=== PATIENT | male | born 1965 | race Caucasian/White ===

== ENCOUNTER 2018-08-25 08:07 | Outpatient (CLI) | payer BC, SELFPAY ==
[2018-08-25 09:07] LABS: Hemoglobin A1C 5.2 % (4.5-6.2)
[2018-08-25 09:51] LABS: Anion Gap 7.3 mmol/L (3-11); BUN 9 mg/dL (7-18); CO2 27.7 mmol/L (21.0-32.0); CREATININE 0.73 mg/dL (0.70-1.30); Calcium 8.5 mg/dL (8.5-10.1); Chloride 106 mmol/L (98-107); Cholesterol 144 mg/dL (50-200); Glucose 89 mg/dL (70-100); HDL Cholesterol 44 mg/dL (40-60); LDL CHOLESTEROL 86 mg/dL (<100); Potassium 4.2 mmol/L (3.5-5.1); Sodium 141 mmol/L (136-145); Triglyceride 101 mg/dL (30-150)
== END 2018-08-25 08:27 ==
PROVIDERS: PCP Nurse Practitioner Family; Visit Provider Nurse Practitioner Family
DX: E78.5 Hyperlipidemia, unspecified (principal); E88.81 Metabolic syndrome and other insulin resistance; Z13.1 Encounter for screening for diabetes mellitus
CPT/HCPCS: 36415; 80048; 80061; 83721; 83036

== ENCOUNTER 2019-09-15 07:03 | Outpatient (CLI) | payer BC, SELFPAY ==
[2019-09-15 07:58] LABS: Hemoglobin A1C 5.8 % (4.5-6.2)
[2019-09-15 09:10] LABS: Anion Gap 9.2 mmol/L (3-11); BUN 9 mg/dL (7-18); CO2 28.8 mmol/L (21.0-32.0); CREATININE 0.84 mg/dL (0.70-1.30); Calcium 8.9 mg/dL (8.5-10.1); Calculated LDL 110 mg/dL; Chloride 103 mmol/L (98-107); Cholesterol 174 mg/dL (50-200); Glucose 100 mg/dL (70-100); HDL Cholesterol 40 mg/dL (40-60); Potassium 4.5 mmol/L (3.5-5.1); Sodium 141 mmol/L (136-145); Triglyceride 121 mg/dL (30-150)
== END 2019-09-15 07:23 ==
PROVIDERS: PCP Nurse Practitioner Family; Visit Provider Nurse Practitioner Family
DX: E78.5 Hyperlipidemia, unspecified (principal); R73.01 Impaired fasting glucose
CPT/HCPCS: 36415; 80048; 80061; 83036

== ENCOUNTER 2019-10-11 11:20 | Emergency (ER) | payer BC, SELFPAY ==
[2019-10-11 11:33] VITALS: BP 133/91; PULSE 92; RESP 18; TEMP 36.6; O2SAT 96
[2019-10-11] MEDS: Dexamethasone 4 MG TAB 10 MG PO (12:57)
[2019-10-11] MEDS: Inhaler, Assist Device 1 EACH MC (13:00)
--- NOTE | 2019-10-12 14:44 | ED.GENADUL_ITS ---
Discharge Plan Disposition Patient Disposition: HOME Condition: Good Discharge Details Chief Complaint: RespSymp Clinical Impression: Sinusitis, Acute bronchospasm Primary Care Provider: Maribel Carpenter ED Provider: Liliya Hernandez Home Meds and New Rx's Prescriptions: New amoxicillin-pot clavulanate [Augmentin] 875-125 mg tablet 1 tab PO BID Qty: 20 RF: 0 albuterol sulfate [Proventil HFA] 90 mcg/actuation HFA aerosol inhaler 2 puff IH Q6H PRN (Reason: shortness of breath) Qty: 8 RF: 0 No Action sildenafil (pulm.hypertension) 20 mg tablet 20 mg PO DAILY PRN (Reason: sexual activity) Qty: 14 RF: 3 benzonatate 100 mg capsule 100 mg PO TID PRN (Reason: cough) Qty: 30 RF: 0 atorvastatin [Lipitor] 40 mg tablet 40 mg PO HS Qty: 90 RF: 3 Shingrix (PF) 50 mcg/0.5 mL suspension for reconstitution 50 mcg IM .COMPLEX Qty: 1 RF: 1 buspirone 7.5 MG tablet 7.5 mg PO BID PRNQty: 180 RF: 3 sertraline 50 mg tablet 50 mg PO DAILY Qty: 90 RF: 3 benzonatate [Tessalon Perles] 100 mg Capsule 100 mg PO PRN PRNRF: 0 Discharge Instructions Instructions: Sinusitis (ED), Bronchospasm (ED) Additional Instructions: Take antibiotics as prescribed. Rest activities as tolerated. Use nasal saline rinses 3 times a day followed in the morning by Flonase as discussed. Drink plenty of fluids. Use inhaler as discussed. Follow-up with primary care doctor if not improving the next 3 to 5 days. Return for any worsening symptoms, alarming symptoms if needed sooner. Discharge Data Discharge Date/Time-TO BE ENTERED AT DEPARTURE: 10/11/19 12:59 Medical Decision Making 54-year-old patient with 9 days of illness who presents for concern of sinusitis. Patient reports history of sinus infection in the past and this seems similar. Patient does present with erythema overlying the sinuses and right-sided maxillary tenderness. Patient has no systemic ill symptoms at this time. Patient's breath sounds do sound full and normal. After evaluation and examination of the patient I do feel it is appropriate to treat for sinus infection at this time. Patient agrees with plan of care. Historically Augmentin has worked very well for his sinus infections. Inhaler also provided for bronchospastic described coughing fits. Patient agrees with plan of care. Recommended humidifier by the bedside. Conservative treatments discussed. Follow-up with PCP encouraged if lack of improvement in the next 3 to 5 days. The patient was stable and requested discharge. Prior to discharge, my usual and customary return precautions were reviewed with the patient - this included foll ow-up instructions and reasons to return to the Emergency Department if conditions worsens, does not improve as expected, or other new concerns arise. HPI General Date/Time Provider Initiated Documentation: 10/11/19 12:02 . HPI Narrative: This is a 54-year-old patient who presents for 9 days of illness. Patient reports nasal congestion, sinus pain and pressure. Patient reports ear fullness with mild muffled hearing. Originally sore throat which has since resolved. Patient reports a cough with minimal production. No associated difficulty breathing or shortness of breath or wheezing. Patient does report coughing fits, and mild bronchospasm lasting approximately 10 to 15 minutes intermittently. Patient denies chest or back pain. Patient does report history of sinus infections. Patient reports this feels the same as a developing sinus infection and he plans to travel tomorrow for the holiday and is requesting antibiotics at this time. No associated nausea, vomiting or diarrhea. He is eating without difficulty. No other concerning places type no vision trismus. Related Data Home Medications Medication Instructions Recorded Confirmed buspirone 7.5 mg PO BID PRN #180 tab-cap 01/24/18 10/11/19 sildenafil (pulm.hypertension) 20 20 mg PO DAILY PRN #14 tab-cap 09/01/18 10/11/19 mg tablet varicella-zoster gE-AS01B (PF) 50 50 mcg IM .COMPLEX #1 each 09/24/18 09/21/19 mcg/0.5 mL IM susp, kit sertraline 50 mg tablet 50 mg PO DAILY #90 tab-cap 02/25/19 10/11/19 atorvastatin 40 mg tablet 40 mg PO HS #90 tab-cap 10/07/19 10/11/19 benzonatate 100 mg capsule 100 mg PO TID PRN #30 tab-cap 10/07/19 10/11/19 albuterol sulfate [Proventil HFA] 2 puff IH Q6H PRN #8 gm 10/11/19 amoxicillin-pot clavulanate 1 tab PO BID #20 tab 10/11/19 [Augmentin] benzonatate [Tessalon Perles] 100 mg PO PRN PRN 10/11/19 10/11/19 Previous Rx's Medication Instructions Recorded sildenafil (pulm.hypertension) 20 20 mg PO DAILY PRN #14 tab-cap 09/01/18 mg tablet varicella-zoster gE-AS01B (PF) 50 50 mcg IM .COMPLEX #1 each 09/24/18 mcg/0.5 mL IM susp, kit sertraline 50 mg tablet 50 mg PO DAILY #90 tab-cap 02/25/19 atorvastatin 40 mg tablet 40 mg PO HS #90 tab-cap 10/07/19 benzonatate 100 mg capsule 100 mg PO TID PRN #30 tab-cap 10/07/19 albuterol sulfate [Proventil HFA] 2 puff IH Q6H PRN #8 gm 10/11/19 amoxicillin-pot clavulanate 1 tab PO BID #20 tab 10/11/19 [Augmentin] Allergies Allergy/AdvReac Type Severity Reaction Status Date / Time Sulfa (Sulfonamide AdvReac Severe Diarrhea Verified 10/11/19 11:37 Antibiotics) levofloxacin [From Levaquin] AdvReac Unknown Diarrhea Verified 10/11/19 11:37 General Stated Complaint: RespSymp CELSA: 3 Review of Systems All systems reviewed & are unremarkable except as noted in HPI and below Constitutional Constitutional: Denies chills, Denies fever(s), Reports headache(s) and Reports malaise ENT Ears, Nose, Mouth, and Throat: Denies dental pain, Reports headache(s), Reports nasal discharge, Reports post nasal drip, Reports sinus pain, Reports sinus pressure and Denies sore throat Cardiovascular Cardiovascular: Denies chest pain Respiratory Respiratory: Denies cough and Denies pain with cough Gastrointestinal Gastrointestinal: Denies abdominal pain, Denies diarrhea, Denies nausea and Denies vomiting Neurologic Neurologic: Reports headache(s) [facility], [facility] Medical History Anxiety with depression (Chronic) BMI 35.0-35.9,adult (Chronic) Erectile dysfunction (Chronic 03/04/17) Hyperlipidemia (Chronic) 10-year ASCVD risk = ~10% (already on high intensity statin therapy) IFG (impaired fasting glucose) (Chronic) Insomnia disorder (Chronic) Metabolic syndrome (Chronic) Tobacco use disorder (Chronic) Surgical History Arthroplasty of knee (~2012) L colonscopy (01/18/16) excisional bx rgt upper arm (12/28/05) lipoma Social History Smoking/Tobacco Use Status: Current every day Tobacco Type: cigarettes Smoking packs per day: 1.00 Smoking cigarettes per day: 20.0 Years smoked: 30 Smoking pack-years: 30.00 Alcohol Intake: current Alcohol Intake frequency: holidays/special occasions only Drug use: Never Substance use type: does not use Adopted: No Caregiver/Support person: No Foster care: No Number of Children: 3 Sexually active: Yes Current gender identity: male What type of physical activity do you participate in: walking Duration: 30-45 minutes/day Frequency: daily Seatbelt use: always Water heater temp set <120 deg: Yes Working smoke detector in home: Yes Fire extinguisher in home: Yes Carbon monox detector in home: Yes Firearms in home: No Do you feel safe at home: Yes Do you feel safe in your relationship?: Yes Exam Narrative Exam Narrative: CONST: Healthy appearing patient, in no acute distress. Well hydrated. Alert and alert. HENMT: Head nomocephalic, normal to inspection. Atraumatic. Hearing grossly normal. Patient has effusion to left TM. No associated bulging. Patient has erythema overlying the sinuses with right maxillary sinus pain with palpation. No significant left maxillary sinus pain. No frontal sinus pain. Mild pharyngeal erythema without exudates. Uvula midline and normal. EYES: General normal appearance. Alignment normal. Eyelids normal. Conjunctiva normal. NECK: Normal visual inspection. FROM. Trachea midline. No Midline tenderness. CHEST: Normal insepection of the chest. RESP: Normal respiratory effort. Speaking full sentences. No cough. No audible wheezing. No retractions. CARDIO: No JVD. Course Vital Signs Vital signs: Vital Signs Temperature 36.6 C 10/11/19 11:33 Pulse 92 H 10/11/19 11:33 Respiratory Rate 18 10/11/19 11:33 Blood Pressure 133/91 H 10/11/19 11:33 Pulse Oximetry 96 10/11/19 11:33 Temperature 36.6 C 10/11/19 11:33 Temperature Source Temporal Artery Scan 10/11/19 11:33 Pulse 92 H 10/11/19 11:33 Respiratory Rate 18 10/11/19 11:33 Respiratory Effort Non-Labored 10/11/19 11:44 Blood Pressure 133/91 H 10/11/19 11:33 Blood Pressure Position Sitting 10/11/19 11:33 Pulse Oximetry 96 10/11/19 11:33 Oxygen Delivery Method Room Air 10/11/19 11:33 Oxygen Flow Rate 0 10/11/19 11:33 Pain Level 0 10/11/19 11:33
== END 2019-10-11 12:59 | disposition home or self-care (01) ==
PROVIDERS: Emergency Provider Physician Assistant; PCP Nurse Practitioner Family
DX: J01.90 Acute sinusitis, unspecified (principal); J98.01 Acute bronchospasm
CPT/HCPCS: 99283; J8540

== ENCOUNTER 2020-09-19 03:31 | Outpatient (CLI) | payer BC, SELFPAY ==
[2020-09-19 08:49] LABS: ALT 33 U/L (16-63); AST 18 U/L (15-37); Albumin 3.6 g/dL (3.4-5.0); Alkaline Phosphatase 111 U/L (46-116); Anion Gap 8.6 mmol/L (3-11); BUN 9 mg/dL (7-18); Bilirubin, Total 0.3 mg/dL (0.2-1.0); CO2 23.4 mmol/L (21.0-32.0); CREATININE 0.73 mg/dL (0.70-1.30); Calcium 8.6 mg/dL (8.5-10.1); Calculated LDL 100 mg/dL (<100); Chloride 103 mmol/L (98-107); Cholesterol 168 mg/dL (<200); Glucose 126 mg/dL (74-106); HDL Cholesterol 37 mg/dL (40-60); Sodium 135 mmol/L (136-145); Total Protein 6.7 g/dL (6.4-8.2); Triglyceride 157 mg/dL (<150)
== END 2020-09-19 03:51 ==
PROVIDERS: PCP Nurse Practitioner Family; Visit Provider Nurse Practitioner Family
DX: R73.01 Impaired fasting glucose (principal); E78.5 Hyperlipidemia, unspecified; E88.81 Metabolic syndrome and other insulin resistance
CPT/HCPCS: 36415; 80053; 80061

== ENCOUNTER 2021-09-27 02:41 | Outpatient (CLI) | payer BC, SELFPAY ==
[2021-09-27 08:58] LABS: Hemoglobin A1C 5.6 % (<5.7)
[2021-09-27 09:54] LABS: BUN 8 mg/dL (7-18); CREATININE 0.8 mg/dL (0.70-1.30); Calcium 8.6 mg/dL (8.5-10.1); Glucose 94 mg/dL (74-106)
[2021-09-27 09:55] LABS: AST 18 U/L (15-37); Albumin 3.7 g/dL (3.4-5.0); Alkaline Phosphatase 118 U/L (46-116); Anion Gap 11.3 mmol/L (3-11); Bilirubin, Total 0.3 mg/dL (0.2-1.0); CO2 25.7 mmol/L (21.0-32.0); Calculated LDL 104 mg/dL (<100); Chloride 105 mmol/L (98-107); Cholesterol 185 mg/dL (<200); HDL Cholesterol 36 mg/dL (40-60); Potassium 4.3 mmol/L (3.5-5.1); Sodium 142 mmol/L (136-145); Total Protein 6.7 g/dL (6.4-8.2); Triglyceride 225 mg/dL (<150)
[2021-09-27 09:56] LABS: ALT 41 U/L (16-63)
== END 2021-09-27 02:42 | disposition home or self-care (01) ==
LOC: LBO 02:41
PROVIDERS: PCP Nurse Practitioner Family; Visit Provider Nurse Practitioner Family
DX: E78.5 Hyperlipidemia, unspecified (principal); R73.01 Impaired fasting glucose; E88.81 Metabolic syndrome and other insulin resistance
CPT/HCPCS: 36415; 80053; 80061; 83036

== ENCOUNTER 2022-06-30 14:13 | Outpatient (REF) | payer BC, SELFPAY ==
[2022-06-30 17:26] LABS: Abs Immature Grans 0.05 10^3/uL (0.0-0.06); Absolute Basophil Count 0.22 10^3/uL (0.0-0.2); Absolute Monocyte Count 1.53 10^3/uL (0.1-0.8); Basophils % 1.6; Eosinophils % 3.8; HCT 42.7 % (40.0-50.0); HGB 14.9 g/dL (13.5-17.5); Immature Grans % 0.4; Lymphocytes % 16.1; MCH 31.6 pg (27.0-33.0); MCHC 34.9 % (32.0-36.0); MCV 91 fL (80-95); MPV 9.5 fL (8.0-11.0); Monocytes % 11.3; Neutrophils % 66.8; RBC 4.72 10^6/uL (4.36-5.78); RDW 13.3 % (11.8-14.1); RDW-SD 45.1 fL; WBC 13.57 10^3/uL (4.4-10.8)
[2022-06-30 17:29] LABS: Absolute Eosinophil Count 0.52 10^3/uL (0.0-0.7); Absolute Lymphocyte Count 2.18 10^3/uL (1.2-3.4); Absolute Neutrophil Count 9.06 10^3/uL (1.2-6.7); ESR 18 mm/hr (0-20)
[2022-06-30 18:02] LABS: Diff Comment Agrees w/ Instrument; RBC Morphology Normal
[2022-06-30 18:03] LABS: Platelet Count 375 10^3/uL (130-400)
[2022-07-02 10:04] LABS: PSA, Diagnostic 0.4 ng/mL (<=3.5)
== END 2022-06-30 14:14 | disposition home or self-care (01) ==
LOC: LBN 14:13
PROVIDERS: PCP Nurse Practitioner Family; Visit Provider Nurse Practitioner Family
DX: R10.30 Lower abdominal pain, unspecified (principal); R35.0 Frequency of micturition
CPT/HCPCS: 85652; 84153; 85025; 87086

== ENCOUNTER 2022-07-04 15:54 | Outpatient (REF) | payer BC, SELFPAY ==
[2022-07-05 12:03] LABS: Bilirubin Negative (Negative); Blood Negative (Negative); Clarity Clear (Clear); Glucose Negative (Negative); Ketones Negative (Negative); Leukocyte Esterase Negative (Negative); Nitrite Negative (Negative); Specific Gravity <= 1.005 (1.005-1.025); Urobilinogen 0.2 EU/dL (Up TO 0.2); pH 5.5 (5-8)
== END 2022-07-04 15:55 | disposition home or self-care (01) ==
LOC: LBN 15:54
PROVIDERS: PCP Nurse Practitioner Family; Visit Provider Nurse Practitioner Adult Health
DX: R30.0 Dysuria (principal)
CPT/HCPCS: 81003; 87086

== ENCOUNTER 2022-07-05 03:48 | Outpatient (CLI) | payer BC, SELFPAY ==
[2022-07-05 10:15] LABS: Abs Immature Grans 0.03 10^3/uL (0.0-0.06); Absolute Basophil Count 0.23 10^3/uL (0.0-0.2); Absolute Eosinophil Count 0.48 10^3/uL (0.0-0.7); Basophils % 1.9; HCT 43.1 % (40.0-50.0); HGB 14.6 g/dL (13.5-17.5); Immature Grans % 0.3; Lymphocytes % 20.8; MCH 30.8 pg (27.0-33.0); MCHC 33.9 % (32.0-36.0); MCV 91 fL (80-95); MPV 8.7 fL (8.0-11.0); Monocytes % 8.7; Neutrophils % 64.3; Platelet Count 366 10^3/uL (130-400); RBC 4.74 10^6/uL (4.36-5.78); RDW 13.2 % (11.8-14.1); RDW-SD 44.8 fL
[2022-07-05 10:17] LABS: Absolute Lymphocyte Count 2.48 10^3/uL (1.2-3.4); Absolute Monocyte Count 1.04 10^3/uL (0.1-0.8); Absolute Neutrophil Count 7.65 10^3/uL (1.2-6.7)
[2022-07-05 10:46] LABS: ALT 26 U/L (16-63); AST 14 U/L (15-37); Albumin 3.4 g/dL (3.4-5.0); Alkaline Phosphatase 138 U/L (46-116); Anion Gap 10.5 mmol/L (3-11); BUN 11 mg/dL (7-18); Bilirubin, Total 0.3 mg/dL (0.2-1.0); CO2 24.5 mmol/L (21.0-32.0); CREATININE 0.8 mg/dL (0.70-1.30); Calcium 8.5 mg/dL (8.5-10.1); Chloride 103 mmol/L (98-107); Glucose 126 mg/dL (74-106); Sodium 138 mmol/L (136-145); Total Protein 7.3 g/dL (6.4-8.2)
== END 2022-07-05 03:49 | disposition home or self-care (01) ==
LOC: LBO 03:48
PROVIDERS: PCP Nurse Practitioner Family; Visit Provider Nurse Practitioner Adult Health
DX: D72.829 Elevated white blood cell count, unspecified (principal); R10.30 Lower abdominal pain, unspecified; R30.0 Dysuria
CPT/HCPCS: 36415; 80053; 85025

== ENCOUNTER 2022-07-29 13:10 | Inpatient (IN) | payer BC, SELFPAY ==
[2022-07-29 13:15] VITALS: BP 161/83; PULSE 91; RESP 22; TEMP 36.8; O2SAT 97
--- NOTE | 2022-07-29 13:15 | DI.CT_ITS ---
Exam(s) CT ABDOMEN PELVIS W EXAM: CT ABDOMEN PELVIS W CLINICAL HISTORY: lower abd pain. TECHNIQUE: Imaging Protocol: Axial computed tomography images with coronal and sagittal reformatted images were created and reviewed CONTRAST MATERIAL: Intravenous: Omnipaque 100cc Oral: None COMPARISON: No exams were available for comparison FINDINGS: VISUALIZED LUNG BASES: No nodules nor pleural effusions evident. ABDOMEN: There is no ascites. LIVER: There are no focal hepatic lesions evident. No evidence of a [place] abscess. GALLBLADDER/BILIARY: No obvious gallbladder pathology. CBD is not dilated. PANCREAS: No evidence of pancreatic mass nor dilatation of the pancreatic duct. SPLEEN: Spleen is not enlarged. No obvious intrasplenic lesions. Splenic and portal veins are paten t. ADRENALS: There are no significant adrenal masses. KIDNEYS:No cysts evident. No solid renal masses. No calculi nor hydronephrosis.. ABDOMINAL AORTA: Abdominal aorta is not enlarged. LYMPH NODES:There is no retroperitoneal nor paraaortic adenopathy. ABDOMINAL WALL: No evidence of significant anterior abdominal wall nor inguinal hernia. PELVIS: GI: No evidence of appendicitis.However, there is severe sigmoid diverticulitis and there is an adjac ent abscess measuring 6.0 x 5.0 x 4.5 cm, intimately related to the right culprit sigmoid area but al so intimately related to the superior aspect of the urinary bladder.No gas in the urinary bladder at this time but this abscess indents the superior wall of the bladder and patient is at risk for develo ping fistula. LYMPH NODES: There is no intrapelvic nor inguinal adenopathy. REPRODUCTIVE: Prostate not enlarged. Seminal vesicles unremarkable. URINARY BLADDER: As above. OSSEOUS: No significant osseous lesions. No fractures. IMPRESSION: 1. Severe acute sigmoid diverticulitis with large abscess formation measuring 6 x 5 x 4.5 cm, this ab scess indenting the superior aspect of the bladder. This patient is at high risk for developing a fi stula and aggressive antibiotic therapy is recommended. 2. Appendix appears unremarkable. 3. Other findings as above. RADIATION DOSE DELIVERED: 2,021.66mGy.cm Total DLP DATA REPOSITORY: All CT scans at this facility are submitted to the National Radiology Data Registry (NRDR) Dose Index Registry (DIR) with the [employer] ([employer]). RADIATION OPTIMIZATION: All CT scans at this facility use at least one of these dose optimization te chniques: automated exposure control; mA and/or kV adjustment per patient size (includes targeted exa ms where dose is matched to clinical indication); or iterative reconstruction.
--- NOTE | 2022-07-29 13:22 | ED.GENADUL_ITS ---
Discharge Plan Disposition Patient Disposition: [facility] INPATIENT Condition: Stable Discharge Details Chief Complaint: Abd Prob Clinical Impression: Diverticulitis of intestine with abscess Primary Care Provider: Maribel Carpenter ED Provider: Raymundo Moreno Home Meds and New Rx's Prescriptions: No Action sildenafil (pulm.hypertension) 20 mg tablet 20 mg PO DAILY PRN (Reason: sexual activity) Qty: 14 3RF Rx Instructions: Take 20 mg once daily as needed 1 hour before sexual activity albuterol sulfate 90 mcg/actuation HFA aerosol inhaler 1 - 2 puff inhalation Q4H PRN (Reason: shortness of breath or wheezing) Qty: 1 3RF Rx Instructions: Dispense brand of albuterol inhaler covered by patient's insurance tamsulosin [Flomax] 0.4 mg capsule 0.4 mg PO DAILY Qty: 30 2RF buspirone 7.5 mg tablet 7.5 mg PO BID PRN (Reason: anxiety) Qty: 180 0RF atorvastatin [Lipitor] 40 mg tablet 40 mg PO HS Qty: 90 3RF sertraline 50 mg tablet 50 mg PO DAILY Qty: 90 1RF Medical Decision Making 57-year-old gentleman presents to the ER for 2-month history of lower abdominal pain, occasional dysuria, has been seen at the urgent care and by his PCP, awaiting a CT for concern of diverticulitis at the end of the month but does not feel like waiting that long is safe. Clinically he appears well, nontoxic. Plan is to obtain IV access, routine screening laboratory values and a CT of his abdomen pelvis with IV contrast Laboratory values reveal mild nonspecific leukocytosis CT imaging reveals diverticulitis with abscess, no definitive fistula Case discussed with Dr. Mehta who recommends initiating IV Zosyn, will admit to her services and schedule likely a down and back to [facility] interventional radiology for drainage of the abscess. She will place admission order Findings discussed with patient who is agreeable to admission This documentation was generated using [employer] dictation system, please disregard any oddities of phrase or misspellings. Medical Records Medical records reviewed: Yes I reviewed the patient's medical records. Imaging Data Radiologic Study: Attestation: I personally reviewed and interpreted this imaging study as follows: Imaging: CT Scan Radiologist's impression: PROCEDURE INFORMATION: Exam: CT Abdomen And Pelvis With Contrast Exam date and time: 07/29/2022 2:08 PM Age: 57 years old Clinical indication: Lower abd pain TECHNIQUE: Imaging protocol: Computed tomography of the abdomen and pelvis with contrast. Radiation optimization: All CT scans at this facility use at least one of these dose optimization techniques: automated exposure control; mA and/or kV adjustment per patient size (includes targeted exams where dose is matched to clinical indication); or iterative reconstruction. Contrast material: OMNIPAQUE 350; Contrast volume: 99 ml; Contrast route: INTRAVENOUS (IV); COMPARISON: No relevant prior studies available. FINDINGS: Liver: Normal. No mass. Gallbladder and bile ducts: Normal. No calcified stones. No ductal dilation. Pancreas: Normal. No ductal dilation. Spleen: Normal. No splenomegaly. Adrenal glands: Normal. No mass. Kidneys and ureters: Normal. No hydronephrosis. Stomach and bowel: Colonic diverticulosis. There is a segment of wall thickening within the sigmoid colon, consistent in appearance with acute diverticulitis. Appendix: A normal appendix is identified. Intraperitoneal space: Unremarkable. No free air. No significant fluid collection. Vasculature: Unremarkable. No abdominal aortic aneurysm. Lymph nodes: Unremarkable. No enlarged lymph nodesUrinary bladder: There is an adjacent gas containing abscess measuring 5.5 x 5.1 x 4.0 cm it is also abutting the urinary bladder without definite evidence of fistulous connection. Reproductive: Unremarkable as visualized. Bones/joints: Unremarkable. No acute fracture. Soft tissues: Unremarkable. IMPRESSION: There is a segment of wall thickening within the sigmoid colon, consistent in appearance with acute diverticulitis. There is an adjacent gas containing abscess measuring 5.5 x 5.1 x 4.0 cm it is also abutting the urinary bladder without definite evidence of fistulous connection. Lab Data Lab results reviewed: Yes I reviewed the patient's lab results. Labs: Laboratory Tests Range/Units 07/29/22 07/29/22 07/29/22 13:30 13:30 13:33 WBC (4.4-10.8) 10^3/uL 13.63 H RBC (4.36-5.78) 10^6/uL 4.68 Hgb (13.5-17.5) g/dL 14.6 Hct (40.0-50.0) % 42.6 MCV (80-95) fL 91 MCH (27.0-33.0) pg 31.2 MCHC (32.0-36.0) % 34.3 RDW (11.8-14.1) % 13.3 Plt Count (130-400) 10^3/uL 417 H MPV (8.0-11.0) fL 8.8 Immature Gran % 0.4 Neutrophils % 68.7 Lymphocytes % 15.9 Monocytes % 9.3 Eosinophils % 4.1 Basophils % 1.6 Nucleated RBC % (0.0-0.3) % 0.0 Absolute Neutrophils (1.2-6.7) 10^3/uL 9.36 H Absolute Lymphocytes (1.2-3.4) 10^3/uL 2.17 Absolute Monocytes (0.1-0.8) 10^3/uL 1.27 H Absolute Eosinophils (0.0-0.7) 10^3/uL 0.56 Absolute Basophils (0.0-0.2) 10^3/uL 0.22 H Sodium (136-145) mmol/L 138 Potassium (3.5-5.1) mmol/L 3.8 Chloride (98-107) mmol/L 102 Carbon Dioxide (21.0-32.0) mmol/L 27.2 Anion Gap (3-11) mmol/L 8.8 BUN (7-18) mg/dL 10 Creatinine (0.70-1.30) mg/dL 0.8 Est GFR (CKD-EPI 2020) (mL/min/1.73m2) 102.58 Glucose (74-106) mg/dL 108 H Calcium (8.5-10.1) mg/dL 8.5 Total Bilirubin (0.2-1.0) mg/dL 0.3 AST (15-37) U/L 11 L ALT (16-63) U/L 23 Alkaline Phosphatase (46-116) U/L 129 H Total Protein (6.4-8.2) g/dL 7.7 Albumin (3.4-5.0) g/dL 3.4 Lipase (73-393) U/L 84 Urine Color (Yellow) Yellow Urine Clarity (Clear) Clear Urine pH (5-8) 6.0 Ur Specific [place] (1.005-1.025) 1.010 Urine Protein (Negative) mg/dL Negative Urine Ketones (Negative) mg/dL Negative Urine Blood (Negative) Negative Urine Nitrite (Negative) Negative Urine Bilirubin (Negative) Negative Urine Urobilinogen (Up TO 0.2) EU/dL 0.2 Ur Leukocyte Esterase (Negative) Negative Urine Glucose (Negative) mg/dL Negative HPI General Mode of arrival: ambulatory . Date/Time Provider Initiated Documentation: 07/29/22 13:11 . Limitations to Documentation: no limitations . Information obtained by: patient . History of Present Illness 57 year old M presents to the emergency department with the chief complaint of abd pain, described as moderate, with intensity rated at 6. Quality is described as aching, and is localized to the abdomen. Patient reports no radiation. Patient started experiencing this month(s) (2) and it has been intermittent. No relieving factors improve symptom(s), No exacerbating factors reported . Patient notes denies fever/chills and nausea/vomiting. Patient did receive the following treatments prior to arrival, none Related Data Home Medications Medication Instructions Recorded Confirmed sildenafil (pulm.hypertension) 20 20 mg PO DAILY PRN sexual activity 09/01/18 07/29/22 mg tablet #14 tab-caps buspirone 7.5 mg tablet 7.5 mg PO BID PRN anxiety #180 02/17/20 07/29/22 tab-caps albuterol sulfate 90 mcg/actuation 1 - 2 puff inhalation Q4H PRN 09/28/20 0 07/29/22 aerosol inhaler shortness of breath or wheezing #1 unit atorvastatin 40 mg tablet (Lipitor) 40 mg PO HS #90 tab-caps 09/27/21 07/29/22 sertraline 50 mg tablet 50 mg PO DAILY #90 tab-caps 05/22/22 07/29/22 tamsulosin 0.4 mg capsule (Flomax) 0.4 mg PO DAILY #30 caps 07/16/22 07/29/22 Previous Rx's Medication Instructions Recorded sildenafil (pulm.hypertension) 20 20 mg PO DAILY PRN sexual activity 09/01/18 mg tablet #14 tab-caps buspirone 7.5 mg tablet 7.5 mg PO BID PRN anxiety #180 02/17/20 tab-caps albuterol sulfate 90 mcg/actuation 1 - 2 puff inhalation Q4H PRN 09/28/20 aerosol inhaler shortness of breath or wheezing #1 unit atorvastatin 40 mg tablet (Lipitor) 40 mg PO HS #90 tab-caps 09/27/21 sertraline 50 mg tablet 50 mg PO DAILY #90 tab-caps 05/22/22 tamsulosin 0.4 mg capsule (Flomax) 0.4 mg PO DAILY #30 caps 07/16/22 Allergies Allergy/AdvReac Type Severity Reaction Status Date / Time Sulfa (Sulfonamide AdvReac Severe Diarrhea Verified 07/29/22 13:23 Antibiotics) levofloxacin [From Levaquin] AdvReac Unknown Diarrhea Verified 07/29/22 13:23 General Stated Complaint: Abd Prob CELSA: 3 Review of Systems Constitutional Constitutional: Denies fever(s) and Denies weakness Cardiovascular Cardiovascular: Denies chest pain and Denies dyspnea Respiratory Respiratory: Denies cough and Denies dyspnea Gastrointestinal Gastrointestinal: Reports abdominal pain, Denies constipation, Reports diarrhea, Denies nausea and Denies vomiting Genitourinary Genitourinary: Denies hematuria, Reports dysuria (Occasionally) and Denies penile discharge Musculoskeletal Musculoskeletal: Denies back pain Integumentary/Breasts Skin/Breast: Denies rash Neurologic Neurologic: Denies weakness PFSH All Active Problems (Updated 07/29/22 @ 15:15 by YASMANI Mendieta) Diverticulitis of intestine with abscess (Acute) Obesity (Chronic) IFG (impaired fasting glucose) (Chronic) Anxiety with depression (Chronic) Tobacco use disorder (Chronic) Metabolic syndrome (Chronic) Insomnia disorder (Chronic) Hyperlipidemia (Chronic) 09/2020 labs: adequate response, continue statin Erectile dysfunction (Chronic 03/04/17) Surgical History Arthroplasty of knee (~2012) L excisional bx rgt upper arm (12/28/05) lipoma Family History Father Essential hypertension Anxiety Hyperlipidemia Maternal Aunt Neoplasm metastatic esophageal CA Mother Hyperlipidemia Stroke Sister Goiter S/p bx (benign) Breast cancer Social History Smoking/Tobacco Use Status: Current every day Tobacco Type: cigarettes Smoking packs per day: 1.00 Smoking cigarettes per day: 20.0 Years smoked: 30 Smoking pack-years: 30.00 Quit status: considering quitting Smoking risk assessment performed?: Yes Alcohol Intake: current Alcohol Intake frequency: holidays/special occasions only Drug use: Never Substance use type: does not use Adopted: No Caregiver/Support person: No Foster care: No Household members: family Housing: house Number of Children: 1 Communication Needs: Corrective Lenses Education Level: college Do you need help understanding health information?: Rarely 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 Pets and animals: Yes Pets and animals: dog(s) Sexually active: Yes Do you think of yourself as: straight/heterosexual Current gender identity: male What is your relationship status?: How often do you talk on the phone with friends or family?: twice per week How often do you get together with friends or relatives?: twice per week How often do you attend hindu or scientology services?: 1-3 times per year Do you belong to any clubs or organized social groups?: yes Panel score (0-1 are the most socially isolated patients): 2 What type of physical activity do you participate in: walking Duration: < 15 minutes/day Frequency: 3-4 times per week Anabela/Temple: Temple Special anabela needs: No Seatbelt use: always Helmet use: Yes Drive intox or ride w/intox milk wagon driver: No Water heater temp set <120 deg: Yes Working smoke detector in home: Yes Fire extinguisher in home: Yes Carbon monox detector in home: Yes Firearms in home: No Do you feel safe at home: Yes Do you feel safe in your relationship?: Yes Exam Const General: cooperative, healthy appearing, comfortable and no acute distress Orientation: alert and awake HENLA Head: normal to inspection, normocephalic and atraumatic Eyes Conjunctivae: conjunctivae normal Neck Neck: normal visual inspection, full ROM, trachea midline and supple Resp Effort & Inspection: normal respiratory effort and able to speak in complete sentences Auscultation: clear to auscultation bilaterally Cardio Rate: regular rate Rhythm: regular rhythm GI Inspection: normal to inspection Palpation: soft, not firm, no guarding, no pulsatile masses and tender suprapubicly Auscultation: normal bowel sounds Back/Spine/Pelvis Back: no CVA tenderness and No back tenderness Skin General skin exam: no rashes or lesions noted Neuro General: patient alert, patient awake, moves all extremities and no focal motor deficits Sensory Exam: no sensory deficits noted Psych Appearance: grossly normal Mental Status: mental status grossly normal Course Vital Signs Vital signs: Vital Signs Temperature 36.8 C 07/29/22 13:15 Pulse 91 H 07/29/22 13:15 Respiratory Rate 22 07/29/22 13:15 Blood Pressure 161/83 H 07/29/22 13:15 Pulse Oximetry 97 07/29/22 13:15 Temperature 36.8 C 07/29/22 13:15 Temperature Source Temporal Artery Scan 07/29/22 13:15 Pulse 91 H 07/29/22 13:15 Respiratory Rate 22 07/29/22 13:15 Respiratory Effort Non-Labored 07/29/22 13:19 Blood Pressure 161/83 H 07/29/22 13:15 Blood Pressure Position Sitting 07/29/22 13:15 Pulse Oximetry 97 07/29/22 13:15 Oxygen Delivery Method Room Air 07/29/22 13:15 Oxygen Flow Rate 0 07/29/22 13:15 Pain Level 7 07/29/22 13:15
[2022-07-29 13:39] LABS: Abs Immature Grans 0.05 10^3/uL (0.0-0.06); Absolute Basophil Count 0.22 10^3/uL (0.0-0.2); Absolute Eosinophil Count 0.56 10^3/uL (0.0-0.7); Absolute Lymphocyte Count 2.17 10^3/uL (1.2-3.4); Absolute Monocyte Count 1.27 10^3/uL (0.1-0.8); Absolute Neutrophil Count 9.36 10^3/uL (1.2-6.7); Basophils % 1.6; Eosinophils % 4.1; HCT 42.6 % (40.0-50.0); HGB 14.6 g/dL (13.5-17.5); Immature Grans % 0.4; Lymphocytes % 15.9; MCH 31.2 pg (27.0-33.0); MCHC 34.3 % (32.0-36.0); MCV 91 fL (80-95); MPV 8.8 fL (8.0-11.0); Monocytes % 9.3; Neutrophils % 68.7; Platelet Count 417 10^3/uL (130-400); RBC 4.68 10^6/uL (4.36-5.78); RDW 13.3 % (11.8-14.1); RDW-SD 44.8 fL; WBC 13.63 10^3/uL (4.4-10.8)
[2022-07-29 13:49] LABS: Bilirubin Negative (Negative); Blood Negative (Negative); Clarity Clear (Clear); Glucose Negative (Negative); Ketones Negative (Negative); Leukocyte Esterase Negative (Negative); Nitrite Negative (Negative); Urobilinogen 0.2 EU/dL (Up TO 0.2)
[2022-07-29 13:59] LABS: ALT 23 U/L (16-63); AST 11 U/L (15-37); Albumin 3.4 g/dL (3.4-5.0); Alkaline Phosphatase 129 U/L (46-116); Anion Gap 8.8 mmol/L (3-11); BUN 10 mg/dL (7-18); Bilirubin, Total 0.3 mg/dL (0.2-1.0); CO2 27.2 mmol/L (21.0-32.0); CREATININE 0.8 mg/dL (0.70-1.30); Calcium 8.5 mg/dL (8.5-10.1); Chloride 102 mmol/L (98-107); Estimated GFR 102.58 (mL/min/1.73m2); Glucose 108 mg/dL (74-106); Lipase 84 U/L (73-393); Potassium 3.8 mmol/L (3.5-5.1); Sodium 138 mmol/L (136-145); Total Protein 7.7 g/dL (6.4-8.2)
[2022-07-29] MEDS: Omnipaque 350 MG/ML 100 ML BTL IJ (14:12)
[2022-07-29] MEDS: Normal Saline Flush 10 ML SYR IVP ×3 (14:14→19:24)
--- NOTE | 2022-07-29 14:55 | DI.VRAD_ITS ---
PROCEDURE INFORMATION: Exam: CT Abdomen And Pelvis With Contrast Exam date and time: 07/29/2022 2:08 PM Age: 57 years old Clinical indication: Lower abd pain TECHNIQUE: Imaging protocol: Computed tomography of the abdomen and pelvis with contrast. Radiation optimization: All CT scans at this facility use at least one of these dose optimization techniques: automated exposure control; mA and/or kV adjustment per patient size (includes targeted exams where dose is matched to clinical indication); or iterative reconstruction. Contrast material: OMNIPAQUE 350; Contrast volume: 99 ml; Contrast route: INTRAVENOUS (IV); COMPARISON: No relevant prior studies available. FINDINGS: Liver: Normal. No mass. Gallbladder and bile ducts: Normal. No calcified stones. No ductal dilation. Pancreas: Normal. No ductal dilation. Spleen: Normal. No splenomegaly. Adrenal glands: Normal. No mass. Kidneys and ureters: Normal. No hydronephrosis. Stomach and bowel: Colonic diverticulosis. There is a segment of wall thickening within the sigmoid colon, consistent in appearance with acute diverticulitis. Appendix: A normal appendix is identified. Intraperitoneal space: Unremarkable. No free air. No significant fluid collection. Vasculature: Unremarkable. No abdominal aortic aneurysm. Lymph nodes: Unremarkable. No enlarged lymph nodes. Urinary bladder: There is an adjacent gas containing abscess measuring 5.5 x 5.1 x 4.0 cm it is also abutting the urinary bladder without definite evidence of fistulous connection. Reproductive: Unremarkable as visualized. Bones/joints: Unremarkable. No acute fracture. Soft tissues: Unremarkable. IMPRESSION: There is a segment of wall thickening within the sigmoid colon, consistent in appearance with acute diverticulitis. There is an adjacent gas containing abscess measuring 5.5 x 5.1 x 4.0 cm it is also abutting the urinary bladder without definite evidence of fistulous connection. Dictated and Authenticated by: Jay Richardson MD. Ordering:AMIRAH Fonseca MD
--- NOTE | 2022-07-29 15:20 | HPE_ITS ---
Date of service: 07/29/22 Time of Service: 15:20 Assessment and Plan Assessment and plan (1) Diverticulitis of intestine with abscess: Status: Acute Assessment and plan: - I did discuss the patient with [facility] interventional radiology. Because of the location on the abscess between the colon and the bladder, it is questionable if they will be able to safely place a drain. They will have to have the attending of the day look at the films and decide on Saturday if it is technically feasible. -Otherwise she may have to go to surgery and have a laparoscopic washout and drain placement. Transfer paperwork was completed tonight. -Gordonmaikol Lorettaluz elena is held until we know if IR will be placing a drain SCDs/incentive spirometry/supportive care 45 minutes spent inInterviewing the patient and coordinating care (2) Obesity: Status: Chronic Qualifiers: Obesity type: due to excess calories Obesity classification: adult class 3 (BMI >= 40) Serious obesity comorbidity presence: with serious comorbidity Body mass index: BMI 40.0-44.9 Qualified Code(s): E66.01 - Morbid (severe) obesity due to excess calories; Z68.41 - Body mass index (BMI) 40.0- 44.9, adult (3) IFG (impaired fasting glucose): Status: Chronic (4) Anxiety with depression: Status: Chronic (5) Tobacco use disorder: Status: Chronic (6) Metabolic syndrome: Status: Chronic (7) Insomnia disorder: Status: Chronic Qualifiers: Insomnia type: unspecified Qualified Code(s): G47.00 - Insomnia, unspecified (8) Hyperlipidemia: Status: Chronic Qualifiers: Hyperlipidemia type: unspecified Qualified Code(s): E78.5 - Hyp erlipidemia, unspecified (9) Suspected sleep apnea: Status: Acute History of Present Illness Narrative: Patient is a 57-year-old male who is noted progressive left-sided and suprapubic pain over the last couple of months. Today the pain became worse and he presented to the emergency department. He notes this is been going off and on for several months. It is slowly becoming worse. He has had GI discomfort, diarrhea, left lower quadrant suprapubic pain, and pain with eating. Pain violetta adily becomes worse throughout the course of the day. He notes he has been also been having lot of urinary frequency and pain with urination. He denies noticing any air or sediment when he urinates. He has had no fever or chills. He just is feeling poorly. He had a colonoscopy 7 years ago. The results are at his records from [facility]. To the best of his knowledge this is his first attack of diverticulitis. He has never had any abdominal surgery previously. He denies any problems with anesthesia. He does smoke a pack a day. Blood sugars are borderline He has pain localized mostly in the superior pubic area. He does not have diffuse peritonitis. He is not running a temp. And his vital signs are stable. Review of Systems All systems reviewed & are unremarkable except as noted in HPI and below PFSH All Active Problems (Updated 07/29/22 @ 20:57 by Natalie Mehta DO) Suspected sleep apnea (Acute) Diverticulitis of intestine with abscess (Acute) Obesity (Chronic) IFG (impaired fasting glucose) (Chronic) Anxiety with depression (Chronic) Tobacco use disorder (Chronic) Metabolic syndrome (Chronic) Insomnia disorder (Chronic) Hyperlipidemia (Chronic) 09/2020 labs: adequate response, continue statin Erectile dysfunction (Chronic 03/04/17) Surgical History Arthroplasty of knee (~2012) L excisional bx rgt upper arm (12/28/05) lipoma Family History Father Essential hypertension Anxiety Hyperlipidemia Maternal Aunt Neoplasm metastatic esophageal CA Mother Hyperlipidemia Stroke Sister Goiter S/p bx (benign) Breast cancer Social History Smoking/Tobacco Use Status: Current every day Tobacco Type: cigarettes Smoking packs per day: 1.00 Smoking cigarettes per day: 20.0 Years smoked: 30 Smoking pack-years: 30.00 Quit status: considering quitting Smoking risk assessment performed?: Yes Alcohol Intake: current Alcohol Intake frequency: holidays/special occasions only Drug use: Never Substance use type: does not use Adopted: No Caregiver/Support person: No Foster care: No Household members: family Housing: house Number of Children: 1 Communication Needs: Corrective Lenses Education Level: college Do you need help understanding health information?: Rarely 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 Pets and animals: Yes Pets and animals: dog(s) Sexually active: Yes Do you think of yourself as: straight/heterosexual Current gender identity: male What is your relationship status?: How often do you talk on the phone with friends or family?: twice per week How often do you get together with friends or relatives?: twice per week How often do you attend buddhist or presybeterian services?: 1-3 times per year Do you belong to any clubs or organized social groups?: yes Panel score (0-1 are the most socially isolated patients): 2 What type of physical activity do you participate in: walking Duration: < 15 minutes/day Frequency: 3-4 times per week Anabela/Amish: Oriental Orthodox Special anabela needs: No Seatbelt use: always Helmet use: Yes Drive intox or ride w/intox motor bus driver: No Water heater temp set <120 deg: Yes Working smoke detector in home: Yes Fire extinguisher in home: Yes Carbon monox detector in home: Yes Firearms in home: No Do you feel safe at home: Yes Do you feel safe in your relationship?: Yes Meds Allergies and Home Medications Allergies Allergy/AdvReac Type Severity Reaction Status Date / Time Sulfa (Sulfonamide AdvReac Severe Diarrhea Verified 07/29/22 13:23 Antibiotics) levofloxacin [From Levaquin] AdvReac Unknown Diarrhea Verified 07/29/22 13:23 Home Medications Medication Instructions Recorded Confirmed Type sildenafil (pulm.hypertension) 20 20 mg PO DAILY PRN sexual activity 09/01/18 07/29/22 Rx mg tablet #14 tab-caps buspirone 7.5 mg tablet 7.5 mg PO BID PRN anxiety #180 02/17/20 07/29/22 Rx tab-caps albuterol sulfate 90 mcg/actuation 1 - 2 puff inhalation Q4H PRN 09/28/20 07/29/22 Rx aerosol inhaler shortness of breath or wheezing #1 unit atorvastatin 40 mg tablet (Lipitor) 40 mg PO HS #90 tab-caps 09/27/21 07/29/22 Rx sertraline 50 mg tablet 50 mg PO DAILY #90 tab-caps 05/22/22 07/29/22 Rx tamsulosin 0.4 mg capsule (Flomax) 0.4 mg PO DAILY #30 caps 07/16/22 07/29/22 Rx Exam Narrative Exam Narrative: PHYSICAL EXAM GENERAL APPEARANCE: Alert, healthy appearance, oriented, in mild distress. Suspicion for sleep apnea SKIN: No rashes.? No breakdown HYDRATION: Well hydrated HEAD, EYES, EARS, NECK, THROAT: Head is normocephalic, pupils equal, round, reactive to light and accommodation, ocular movement intact, sclera clear and no jaundice. ?Dentition intact. No sore throat.? No jaw pain. NECK: Supple, Trachea midline. No JVD. LUNGS: normal respiration/nl chest excursion. ?Clear to auscultation B/l no R/R/W ?HEART: Regular rate and rhythm, EXTREMITY: No edema or cyanosis? no leg pain, redness, swelling.? No IV infiltration ABDOMEN: Normal bowel sounds abdomen is morbidly obese so internal organs and hernias are not palpable. He is tender in the left lower quadrant the suprapubic region, with localized guarding. there is no diffuse peritonitis. NEURO: no focal neuro deficits. Results Labs Result diagrams: 07/29/22 13:30 07/29/22 13:30 Labs: Laboratory Results - last 24 hr 07/29/22 07/29/22 07/29/22 13:30 13:30 13:33 WBC 13.63 H RBC 4.68 Hgb 14.6 Hct 42.6 MCV 91 MCH 31.2 MCHC 34.3 RDW 13.3 Plt Count 417 H MPV 8.8 Immature Gran % 0.4 Neutrophils % 68.7 Lymphocytes % 15.9 Monocytes % 9.3 Eosinophils % 4.1 Basophils % 1.6 Nucleated RBC % 0.0 Absolute Neutrophils 9.36 H Absolute Lymphocytes 2.17 Absolute Monocytes 1.27 H Absolute Eosinophils 0.56 Absolute Basophils 0.22 H Sodium 138 Potassium 3.8 Chloride 102 Carbon Dioxide 27.2 Anion Gap 8.8 BUN 10 Creatinine 0.8 Est GFR (CKD-EPI 2020) 102.58 Glucose 108 H Calcium 8.5 Total Bilirubin 0.3 AST 11 L ALT 23 Alkaline Phosphatase 129 H Total Protein 7.7 Albumin 3.4 Lipase 84 Urine Color Yellow Urine Clarity Clear Urine pH 6.0 Ur Specific [place] 1.010 Urine Protein Negative Urine Ketones Negative Urine Blood Negative Urine Nitrite Negative Urine Bilirubin Negative Urine Urobilinogen 0.2 Ur Leukocyte Esterase Negative Urine Glucose Negative Last Vital Signs Temp 36.8 C 07/29/22 13:15 Pulse 91 H 07/29/22 13:15 Resp 22 07/29/22 13:15 BP 161/83 H 07/29/22 13:15 Pulse Ox 97 07/29/22 13:15
[2022-07-29] MEDS: PIPERACILLIN/TAZO 3.375 GM in Normal Saline 50 ML IVPB ×2 (15:21→22:08)
[2022-07-29 15:26] LABS: Source Nasal/Nares
[2022-07-29 15:39] LABS: Lab Add On Test DONE
[2022-07-29 15:49] LABS: C-Reactive Protein 4.16 mg/dL (0.0-0.3)
[2022-07-29 16:00] LABS: COVID-19 PCR Negative (Negative)
[2022-07-29 16:07] VITALS: BP 171/89; PULSE 80; RESP 18; TEMP 36.8; O2SAT 98
[2022-07-29] MEDS: DEXTROSE 5%-0.45% SALINE 1,000 ML 125 ML IV (16:24)
[2022-07-29 16:37] VITALS: BP 171/89; PULSE 80; RESP 18; TEMP 36.8; O2SAT 98
[2022-07-29] MEDS: MORPHine 2 MG/ML SYR IVP ×2 (19:23→22:08)
[2022-07-29 20:27] LABS: Procalcitonin 0.1 ng/mL
[2022-07-29 23:18] VITALS: BP 104/66; PULSE 65; RESP 18; TEMP 36.8; O2SAT 96
[2022-07-30] MEDS: MORPHine 2 MG/ML SYR IVP ×8 (02:47→23:57)
[2022-07-30] MEDS: Normal Saline Flush 10 ML SYR IVP ×9 (02:47→23:57)
[2022-07-30] MEDS: PIPERACILLIN/TAZO 3.375 GM in Normal Saline 50 ML IVPB ×4 (03:18→22:20)
[2022-07-30 06:22] LABS: Abs Immature Grans 0.04 10^3/uL (0.0-0.06); Absolute Eosinophil Count 0.61 10^3/uL (0.0-0.7); Absolute Lymphocyte Count 2.43 10^3/uL (1.2-3.4); Absolute Monocyte Count 0.96 10^3/uL (0.1-0.8); Absolute Neutrophil Count 5.39 10^3/uL (1.2-6.7); Basophils % 2.1; Eosinophils % 6.3; HCT 39.6 % (40.0-50.0); HGB 13.5 g/dL (13.5-17.5); Immature Grans % 0.4; Lymphocytes % 25.2; MCH 31.1 pg (27.0-33.0); MCHC 34.1 % (32.0-36.0); MCV 91 fL (80-95); MPV 8.8 fL (8.0-11.0); Platelet Count 353 10^3/uL (130-400); RBC 4.34 10^6/uL (4.36-5.78); RDW 13.5 % (11.8-14.1); WBC 9.63 10^3/uL (4.4-10.8)
[2022-07-30 06:31] LABS: Anion Gap 8.2 mmol/L (3-11); BUN 7 mg/dL (7-18); CO2 26.8 mmol/L (21.0-32.0); CREATININE 0.7 mg/dL (0.70-1.30); Calcium 8.5 mg/dL (8.5-10.1); Chloride 104 mmol/L (98-107); Glucose 116 mg/dL (74-106); Magnesium 1.9 mg/dL (1.8-2.4); Potassium 3.7 mmol/L (3.5-5.1); Sodium 139 mmol/L (136-145)
[2022-07-30 07:49] VITALS: BP 104/68; PULSE 61; RESP 17; TEMP 36.5; O2SAT 96
[2022-07-30] MEDS: DEXTROSE 5%-0.45% SALINE 1,000 ML 125 ML IV ×2 (08:15→17:05)
--- NOTE | 2022-07-30 09:08 | PDOC.CMIN ---
- If Service Date Differs Date of service: 07/30/22 Time of Service: 09:08 Care Management Initial Assess REASON FOR HOSPITALIZATION:: Diverticulitis with abscess PAST MEDICAL HISTORY/PAST SURGICAL HISTORY:: All Active Problems (Updated 07/29/22 @ 20:57 by Natalie Mehta, ). Suspected sleep apnea (Acute). Diverticulitis of intestine with abscess (Acute). Obesity (Chronic). IFG (impaired fasting glucose) (Chronic). Anxiety with depression (Chronic). Tobacco use disorder (Chronic). Metabolic syndrome (Chronic). Insomnia disorder (Chronic). Hyperlipidemia (Chronic). 09/2020 labs: adequate response, continue statin. Erectile dysfunction (Chronic 03/04/17). Surgical History . Arthroplasty of knee (~2012). L. excisional bx rgt upper arm (12/28/05). lipoma PREVIOUS FUNCTIONAL STATUS/SOCIAL/FAMILY SUPPORTS:: Kingston lives in a single family home in [place] with his fiancee Rosa King and 2 of her children. He also has a son in college and Rosa has another adult child. Kingston is not currently employed but is involved in civic activities and volunteers. he is independent at baseline and does not receive any services. CURRENT FUNCTIONAL STATUS:: Kingston was sitting up in bed when CM met with him. He informed CM that he believes that he is scheduled to go to [facility] tomorrow for a down and back abscess drainage procedure in . He anticipates that he will remain at [facility] for a day or 2 following the procedure then discharge home. Kingston does not expect that he will need any services. ADVANCE DIRECTIVES:: Kingston has advanced directives and his sister Augusta Waters is his HCA. His AD is not on file at [facility] but CM suggested that it might be helpful if he provided one as he receives at least some of his healthcare here. Has patient been provided with info about the portal/API?: Yes Did the patient sign up for the portal?: Yes (previously) CODE STATUS:: Full Code INSURANCE COVERAGE / FINANCIAL ISSUES:: DOUG MONCADA CURRENT HOME/COMMUNITY SERVICES/EQUIPMENT:: none PRIMARY CARE PHYSICIAN:: Maribel Carpenter POTENTIAL DISCHARGE NEEDS:: follow up with surgeon, PCP and plan of care PATIENT/FAMILY EDUCATION NEEDS:: Review of discharge instructions, limitations, activity, diet, follow up plan, discuss Ask Me Three TRANSPORTATION:: via private vehicle with Rosa PLAN:: Kingston will likely be discharged home with no new services when medically cleared by provider. He will follow up with his community providers and plan of care and transport with his fialeishae.
--- NOTE | 2022-07-30 10:11 | W.PM.PROGNOT ---
Date of Service Date of service: 07/30/22 Time of Service: 10:14 Assessment and Plan Assessment and plan (1) Diverticulitis of intestine with abscess: Status: Acute Assessment and plan: I did talk to [place] [facility] They do feel that they will be able to place a CT-guided drain. He will be going down to [facility] today and needs to be there by 1:00. H&P and Orders faxed: [phone]. (2) Obesity: Status: Chronic Qualifiers: Obesity type: due to excess calories Obesity classification: adult class 3 (BMI >= 40) Serious obesity comorbidity presence: with serious comorbidity Body mass index: BMI 40.0-44.9 Qualified Code(s): E66.01 - Morbid (severe) obesity due to excess calories; Z68.41 - Body mass index (BMI) 40.0-44.9, adult (3) Suspected sleep apnea: Status: Acute (4) IFG (impaired fasting glucose): Status: Chronic (5) Anxiety with depression: Status: Chronic (6) Tobacco use disorder: Status: Chronic (7) Metabolic syndrome: Status: Chronic (8) Insomnia disorder: Status: Chronic Qualifiers: Insomnia type: unspecified Qualified Code(s): G47.00 - Insomnia, unspecified (9) Hyperlipidemia: Status: Chronic Qualifiers: Hyperlipidemia type: unspecified Qualified Code(s): E78.5 - Hyperlipidemia, unspecified Objective Last Vital Signs Temp 36.5 C 07/30/22 07:49 Pulse 61 07/30/22 07:49 Resp 17 07/30/22 07:49 BP 104/68 07/30/22 07:49 Pulse Ox 96 07/30/22 07:49 Laboratory Results - last 24 hr 07/29/22 07/29/22 07/29/22 13:30 13:30 13:30 WBC 13.63 H RBC 4.68 Hgb 14.6 Hct 42.6 MCV 91 MCH 31.2 MCHC 34.3 RDW 13.3 Plt Count 417 H MPV 8.8 Immature Gran % 0.4 Neutrophils % 68.7 Lymphocytes % 15.9 Monocytes % 9.3 Eosinophils % 4.1 Basophils % 1.6 Nucleated RBC % 0.0 Absolute Neutrophils 9.36 H Absolute Lymphocytes 2.17 Absolute Monocytes 1.27 H Absolute Eosinophils 0.56 Absolute Basophils 0.22 H Sodium 138 Potassium 3.8 Chloride 102 Carbon Dioxide 27.2 Anion Gap 8.8 BUN 10 Creatinine 0.8 Est GFR (CKD-EPI 2020) 102.58 Glucose 108 H Calcium 8.5 Magnesium Total Bilirubin 0.3 AST 11 L ALT 23 Alkaline Phosphatase 129 H C-Reactive Protein Total Protein 7.7 Albumin 3.4 Lipase 84 Procalcitonin Urine Color Urine Clarity Urine pH Ur Specific [place] Urine Protein Urine Ketones Urine Blood Urine Nitrite Urine Bilirubin Urine Urobilinogen Ur Leukocyte Esterase Urine Glucose COVID-19 Source SARS-CoV-2 (PCR) Add-On Test Request DONE 07/29/22 07/29/22 07/29/22 13:30 13:33 15:20 WBC RBC Hgb Hct MCV MCH MCHC RDW Plt Count MPV Immature Gran % Neutrophils % Lymphocytes % Monocytes % Eosinophils % Basophils % Nucleated RBC % Absolute Neutrophils Absolute Lymphocytes Absolute Monocytes Absolute Eosinophils Absolute Basophils Sodium Potassium Chloride Carbon Dioxide Anion Gap BUN Creatinine Est GFR (CKD-EPI 2020) Glucose Calcium Magnesium Total Bilirubin AST ALT Alkaline Phosphatase C-Reactive Protein 4.16 H Total Protein Albumin Lipase Procalcitonin Urine Color Yellow Urine Clarity Clear Urine pH 6.0 Ur Specific [place] 1.010 Urine Protein Negative Urine Ketones Negative Urine Blood Negative Urine Nitrite Negative Urine Bilirubin Negative Urine Urobilinogen 0.2 Ur Leukocyte Esterase Negative Urine Glucose Negative COVID-19 Source Nasal/Nares SARS-CoV-2 (PCR) Negative Add-On Test Request 07/29/22 07/30/22 07/30/22 18:48 06:07 06:07 WBC 9.63 RBC 4.34 L Hgb 13.5 Hct 39.6 L MCV 91 MCH 31.1 MCHC 34.1 RDW 13.5 Plt Count 353 MPV 8.8 Immature Gran % 0.4 Neutrophils % 56.0 Lymphocytes % 25.2 Monocytes % 10.0 Eosinophils % 6.3 Basophils % 2.1 Nucleated RBC % 0.0 Absolute Neutrophils 5.39 Absolute Lymphocytes 2.43 Absolute Monocytes 0.96 H Absolute Eosinophils 0.61 Absolute Basophils 0.20 Sodium 139 Potassium 3.7 Chloride 104 Carbon Dioxide 26.8 Anion Gap 8.2 BUN 7 Creatinine 0.7 Est GFR (CKD-EPI 2020) 106.80 Glucose 116 H Calcium 8.5 Magnesium 1.9 Total Bilirubin AST ALT Alkaline Phosphatase C-Reactive Protein Total Protein Albumin Lipase Procalcitonin 0.1 Urine Color Urine Clarity Urine pH Ur Specific [place] Urine Protein Urine Ketones Urine Blood Urine Nitrite Urine Bilirubin Urine Urobilinogen Ur Leukocyte Esterase Urine Glucose COVID-19 Source SARS-CoV-2 (PCR) Add-On Test Request
[2022-07-30] MEDS: Normal Saline 500 ML 50 ML IV (10:17)
[2022-07-30 15:25] VITALS: BP 103/70; PULSE 57; RESP 16; TEMP 36.8; O2SAT 95
--- NOTE | 2022-07-30 16:12 | PGE_ITS ---
Date of Service Date of service: 07/30/22 Time of Service: 16:12 Assessment and Plan Assessment and plan (1) Diverticulitis of intestine with abscess: Status: Acute Assessment and plan: Unfortunately, [facility] was not able to accommodate percutaneous drainage today. Arrangement has been made for down a back procedure to drain the perforated diverticulitis tomorrow. His vital signs, and white blood cell count suggest that he has had a favorable response to the antibiotics thus far. We will continue the intravenous antibiotics for right now. Subjective Subjective Interval history since last seen: He is feeling much better today, but he still has some lower midline abdominal discomfort, that seems to be a little worse with urination. He was able to tolerate a popsicle and some clear liquids without any exacerbation of his symptoms. Exam GI Inspection: normal to inspection, non-distended and obesity Palpation: soft and guarding (Mild suprapubic voluntary guarding) Auscultation: normal bowel sounds Objective Last Vital Signs Temp 98.2 F 07/30/22 15:25 Pulse 57 L 07/30/22 15:25 Resp 16 07/30/22 15:25 BP 103/70 07/30/22 15:25 Pulse Ox 95 07/30/22 15:25 Laboratory Results - last 24 hr 07/29/22 07/30/22 07/30/22 18:48 06:07 06:07 WBC 9.63 RBC 4.34 L Hgb 13.5 Hct 39.6 L MCV 91 MCH 31.1 MCHC 34.1 RDW 13.5 Plt Count 353 MPV 8.8 Immature Gran % 0.4 Neutrophils % 56.0 Lymphocytes % 25.2 Monocytes % 10.0 Eosinophils % 6.3 Basophils % 2.1 Nucleated RBC % 0.0 Absolute Neutrophils 5.39 Absolute Lymphocytes 2.43 Absolute Monocytes 0.96 H Absolute Eosinophils 0.61 Absolute Basophils 0.20 Sodium 139 Potassium 3.7 Chloride 104 Carbon Dioxide 26.8 Anion Gap 8.2 BUN 7 Creatinine 0.7 Est GFR (CKD-EPI 2020) 106.80 Glucose 116 H Calcium 8.5 Magnesium 1.9 Procalcitonin 0.1
[2022-07-30] MEDS: Nicotine 7 MG/24 HR PATCH TD (20:25)
[2022-07-31] VITALS (8 sets, daily range): BP systolic 111–137; BP diastolic 69–84; PULSE 59–73; RESP 15–18; TEMP 36–36.6; O2SAT 93–97
[2022-07-31] MEDS: DEXTROSE 5%-0.45% SALINE 1,000 ML 125 ML IV ×2 (02:50→18:20)
[2022-07-31] MEDS: MORPHine 2 MG/ML SYR IVP ×5 (02:51→18:07)
[2022-07-31] MEDS: Normal Saline Flush 10 ML SYR IVP ×6 (02:51→19:49)
[2022-07-31] MEDS: PIPERACILLIN/TAZO 3.375 GM in Normal Saline 50 ML IVPB ×3 (04:06→21:25)
--- NOTE | 2022-07-31 09:30 | NUR.NOTE ---
Nursing Note: Report received by this nurse from [place] [facility], patient [place]/p drain placement for diverticulitis with abscess. drain placed to midline below naval with a 10f tube placed attached to JUAN drain. Given versed and 200mcg of fentanyl during procedure. Some discharge from drain noted to be light brown in color and some bloody discharge. From nurse at [facility] per [facility] surgeon, nursing to flush drain 2x/day with 3-5cc's. EMS to car pick up driver from [facility] at [address] back [facility].
--- NOTE | 2022-07-31 11:21 | CMPROGNOTE_ITS ---
- If Service Date Differs Date of service: 07/31/22 Time of Service: 11:21 Care Management Progress Note S/O: Per MD: Unfortunately, [facility] was not able to accommodate percutaneous drainage today. Arrangement has been made for down a back procedure to drain the perforated diverticulitis tomorrow. His vital signs, and white blood cell count suggest that he has had a favorable response to the antibiotics thus far. We will continue the intravenous antibiotics for right now. CM continues to follow. A: 57 year old male admitted to [facility] 07/29/22 for Diverticulitis w/Abcess P: Kingston will likely be discharged home with no new services when medically cleared by provider. He will follow up with his community providers and plan of care and transport with his [facility].
--- NOTE | 2022-07-31 13:02 | NUR.NOTE ---
Nursing Note: Patient returned from [facility] interventional radiology to [facility] at 1115am, s/p drain placement. 10f tube in place below naval at midline, JUAN drain in place patent and draining sanguineous fluid. Vs wnl, and patient asking for something to eat. Diet changed to liquids and patient had a carlos macy and Popsicle, tolerated well.
--- NOTE | 2022-07-31 16:06 | CHAPLAIN ---
Kingston was resting in bed when I visited. He had returned from a down and back to [facility] [place] to [place] an abscess. Kingston said he has not experienced this issue before, and he's found it uncomfortable and slowing him down. 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
[2022-07-31] MEDS: Normal Saline 500 ML 50 ML IV (16:12)
[2022-07-31] MEDS: Ketorolac 15 MG/ML VIAL IVP (19:48)
[2022-07-31] MEDS: traMADol 50 MG TAB PO (19:50)
--- NOTE | 2022-07-31 22:22 | PGE_ITS ---
Date of Service Date of service: 07/31/22 Time of Service: 16:00 Assessment and Plan Assessment and plan (1) Suspected sleep apnea: Status: Acute (2) Diverticulitis of intestine with abscess: Status: Acute Assessment and plan: -awaiting culture results from [facility]. gram neg dandy/gram + cocci. Zosyn prob d/c home on augmentin for 7 days soft diet for a week. Than transition to high fiber diet. repeat CT in 1 wks time and drain removal. He will need to go home w/ drain in place. Need home RN for drain care f/u surgery clinic to scheduled CE and decide course of care (3) Obesity: Status: Chronic Qualifiers: Body mass index: BMI 40.0-44.9 Obesity classification: adult class 3 (BMI >= 40) Obesity type: due to excess calories Serious obesity comorbidity presence: with serious comorbidity Qualified Code(s): E66.01 - Morbid (severe) obesity due to excess calories; Z68.41 - Body mass index (BMI) 40.0-44.9, adult (4) IFG (impaired fasting glucose): Status: Chronic (5) Anxiety with depression: Status: Chronic (6) Tobacco use disorder: Status: Chronic (7) Metabolic syndrome: Status: Chronic (8) Insomnia disorder: Status: Chronic Qualifiers: Insomnia type: unspecified Qualified Code(s): G47.00 - Insomnia, unspecified (9) Hyperlipidemia: Status: Chronic Qualifiers: Hyperlipidemia type: unspecified Qualified Code(s): E78.5 - Hyperlipidemia, unspecified Subjective Subjective Interval history since last seen: Pt went to [facility] this am for drain placement. They aspirated 20cc of greenish fluid and sent for cultures. He c/o mild pain in suprpubic region. No CP or SOB. no productive cough. no dysuria. no leg pain or swelling. gram stain shows:many neutraphils mod gram + cocci rare gram neg rods abx: Zosyn pt is not having fevers. he is having minimal pain and VS are stable. Exam Resp Effort & Inspection: normal respiratory effort and able to speak in complete sentences Auscultation: clear to auscultation bilaterally Cardio Rate: regular rate Rhythm: regular rhythm GI Palpation: soft Other: Soft, good bowel sounds, no rebound rigidity or guarding. Drain site is clean dry and intact. It has about 10 cc of sero- purulent drainage in place. Cultures were done and pending at [facility]. I would love you I will call you around noon this may be Extrem General: no clubbing, cyanosis or edema Objective Last Vital Signs Temp 36.4 C L 07/31/22 15:39 Pulse 62 07/31/22 15:39 Resp 16 07/31/22 15:39 BP 117/79 07/31/22 15:39 Pulse Ox 96 07/31/22 15:39
[2022-07-31] MEDS: Enoxaparin 40 MG/0.4 ML SYR SC (23:07)
[2022-08-01] MEDS: Normal Saline Flush 10 ML SYR IVP ×2 (03:28→10:48)
[2022-08-01] MEDS: Ketorolac 15 MG/ML VIAL IVP ×2 (03:28→10:47)
[2022-08-01] MEDS: PIPERACILLIN/TAZO 3.375 GM in Normal Saline 50 ML IVPB ×2 (03:28→10:33)
[2022-08-01] MEDS: traMADol 50 MG TAB PO (03:29)
[2022-08-01] MEDS: Nicotine 7 MG/24 HR PATCH TD (08:18)
[2022-08-01] MEDS: Tamsulosin 0.4 MG CAPCR PO (08:19)
[2022-08-01] MEDS: Sertraline 50 MG TAB PO (08:19)
[2022-08-01 08:31] VITALS: BP 117/78; PULSE 68; RESP 16; TEMP 35.8; O2SAT 94
[2022-08-01] MEDS: Normal Saline 500 ML 50 ML IV (10:33)
--- NOTE | 2022-08-01 15:04 | DSE_ITS ---
Date of service: 08/01/22 Time of Service: 15:04 DS: Diagnosis Discharge Diagnosis (1) Suspected sleep apnea: Status: Acute (2) Diverticulitis of intestine with abscess: Status: Acute (3) Obesity: Status: Chronic (4) IFG (impaired fasting glucose): Status: Chronic (5) Anxiety with depression: Status: Chronic (6) Tobacco use disorder: Status: Chronic (7) Metabolic syndrome: Status: Chronic (8) Insomnia disorder: Status: Chronic (9) Hyperlipidemia: Status: Chronic Discharge Plan Disposition Patient Disposition: HOME Condition: Stable Discharge Details Reason For Visit: Diverticulitis with Abcess Admit Date/Time: 07/29/22 15:24 Admit Provider: Natalie Mehta Attending Provider: Natalie Mehta Primary Care Provider: Maribel Carpenter [facility] Course Hospital Course: Mr. Alex is a pleasant 57 year old male admitted on 07/29/22 for diverticulitis with abscess. He was started on antibiotics and his case was discussed with [facility] for IR drain [place]. He went to [facility] on Saturday for drain placement. He has done well since then. He has tolerated a soft diet today. He is having BM's and no pain. He has been afebrile. Cx are still pending. Nursing has done teaching for drain care. Plan is for him to go home today. He will need a CT scan next saturday and Follow up appt with Dr. Mehta on for possible drain removal. Home Meds and New Rx's Prescriptions: New tramadol 50 mg Tablet 50 mg PO Q6H PRN PRNQty: 14 0RF amoxicillin-pot clavulanate 875-125 mg tablet 1 tab PO TID 7 Days Qty: 21 0RF Continued sildenafil (pulm.hypertension) 20 mg tablet 20 mg PO DAILY PRN (Reason: sexual activity) Qty: 14 3RF Rx Instructions: Take 20 mg once daily as needed 1 hour before sexual activity albuterol sulfate 90 mcg/actuation HFA aerosol inhaler 1 - 2 puff inhalation Q4H PRN (Reason: shortness of breath or wheezing) Qty: 1 3RF Rx Instructions: Dispense brand of albuterol inhaler covered by patient's insurance tamsulosin [Flomax] 0.4 mg capsule 0.4 mg PO DAILY Qty: 30 2RF buspirone 7.5 mg tablet 7.5 mg PO BID PRN (Reason: anxiety) Qty: 180 0RF atorvastatin [Lipitor] 40 mg tablet 40 mg PO HS Qty: 90 3RF sertraline 50 mg tablet 50 mg PO DAILY Qty: 90 1RF Discharge Instructions Instructions: Diverticulitis (DC), Low Fiber Diet (DC) Additional Instructions: Activity at Home after surgery: 1. Make sure you walk outside at least 4 times per day 2. You should be able to climb a flight of stairs 3. No driving while taking pain medications 4. No strenuous activity Diet, Nutrition, & wound healin. Avoid alcohol until after you are recovered from your surgery 2. Make sure to eat plenty of lean protein (meat, fish, eggs, cottage cheese, beans) 3. Eat a variety of fruits and vegetables. Eat plenty of high fiber foods to avoid constipation. 4. Drink plenty of liquids to stay hydrated and avoid constipation Pain Medications: 1. Tylenol 650mg every 6 hours as needed and Ibuprofen 600 mg every 6 hours as needed. You may alternate between the 2 medications every 3 hours 2. If a narcotic has been prescribed take as directed only for breakthrough pain For Constipation: 1. Take Milk of Magnesia or MiraLax as needed for constipation Other: 1. You may shower every other day. Remove the dressing prior to syour shower. Gently clean around the drain. Place a new dressing over the drain after your shower 2. Do not soak the incisions for 1 week 3. You may alternate ice and heat as needed for pain and swelling Wound Care: 1. Keep the incisions clean and dry 2. Change dressing around the drain every 2-3 days Please call our office if you develop: 1. Fevers >101.5 2. Nausea or Vomiting 3. Worsening pain 4. Redness and thick discharge from the wounds If after hours please call the Hospital at and ask to speak to the on-call surgeon Stand Alone Forms: Nursing Discharge Form Referrals: Natalie Mehta DO [OSTEOPATHIC DOCTOR] - 08/08/22 1:30 pm Activity:: Activity as Tolerated Equipment/Supplies:: saline flushes and 4x4 Diet:: low fiber Discharge Orders Discharge Orders: Discharge Order (Routine); Ordered 08/01/22 Ordered By: Hilda Agustin DS: Summary Time Spent with Patient providing and/or coordinating discharge services: Less than 30 minutes Status at Discharge Functional status at discharge: independent ambulation Overall status at discharge: patient is back to baseline Mental Status: mental status grossly normal Speech and Movement: speech and movement normal Mood: congruent mood Affect: normal affect Exam GI Palpation: soft, no hepatosplenomegaly and tender (mild around the drain site) Auscultation: normal bowel sounds Psych Mental Status: mental status grossly normal Speech and Movement: speech and movement normal Mood: congruent mood Affect: normal affect DS: Data Vitals/I&O Vitals and I&O: Vital Signs Temperature 96.4 F L 08/01/22 08:31 Temperature Source Tympanic 08/01/22 08:31 Pulse 68 08/01/22 08:31 Pulse Rhythm Regular 08/01/22 09:21 Respiratory Rate 16 08/01/22 08:31 Respiratory Effort Non-Labored 08/01/22 09:21 Respiratory Depth Normal 08/01/22 09:21 Respiratory Pattern Normal 08/01/22 09:21 Blood Pressure 117/78 08/01/22 08:31 Blood Pressure Position Sitting 07/29/22 13:15 Pulse Oximetry 94 08/01/22 08:31 Oxygen Delivery Method Room Air 08/01/22 14:51 Oxygen Flow Rate 0 08/01/22 14:51 Pain Level 6 08/01/22 14:49 Comment 07/31/22 23:10 Intake & Output 07/31/22 08/01/22 08/01/22 23:59 11:59 23:59 Intake Total 1543.333 / 2874.583 571.333 / 771.333 200 / 771.333 Output Total 610 / 610 Balance 1523.333 / 2854.583 -38.667 / 161.333 200 / 161.333 Intake: IV 1238.333 / 2569.583 168.333 / 168.333 0 / 168.333 Oral 300 / 300 400 / 600 200 / 600 Injectate 5 / 5 3 / 3 Right Mid Abdomen 5 / 5 3 / 3 Output: Drainage 10 / 10 Right Mid Abdomen 10 / 10 Urine 600 / 600 Other: Urine Color Yellow Urine Appearance Clear Clear Comment Void x3 in the toilet throughout the day thus far. Patient voiding independently, reported to this nurse that he is voiding regularly. Voiding Methods Toilet Urinal Toilet Data Completed and Pending Labs on day of discharge: Preliminary micro results at discharge 07/29/22 18:57 Blood Culture - Preliminary Blood NO GROWTH 48 HOURS 07/29/22 18:48 Blood Culture - Preliminary Blood NO GROWTH 48 HOURS PFSH All Active Problems Suspected sleep apnea (Acute) Diverticulitis of intestine with abscess (Acute) Obesity (Chronic) IFG (impaired fasting glucose) (Chronic) Anxiety with depression (Chronic) Tobacco use disorder (Chronic) Metabolic syndrome (Chronic) Insomnia disorder (Chronic) Hyperlipidemia (Chronic) 09/2020 labs: adequate response, continue statin Erectile dysfunction (Chronic 03/04/17) Surgical History Arthroplasty of knee (~2012) L excisional bx rgt upper arm (12/28/05) lipoma Family History Father Essential hypertension Anxiety Hyperlipidemia Maternal Aunt Neoplasm metastatic esophageal CA Mother Hyperlipidemia Stroke Sister Goiter S/p bx (benign) Breast cancer Social History Smoking/Tobacco Use Status: Current every day Tobacco Type: cigarettes Smoking packs per day: 1.00 Smoking cigarettes per day: 20.0 Years smoked: 30 Smoking pack-years: 30.00 Quit status: considering quitting Smoking risk assessment performed?: Yes Alcohol Intake: current Alcohol Intake frequency: holidays/special occasions only Drug use: Never Substance use type: does not use Adopted: No Caregiver/Support person: No Foster care: No Household members: family Housing: house Number of Children: 1 Communication Needs: Corrective Lenses Education Level: college Do you need help understanding health information?: Rarely 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 Pets and animals: Yes Pets and animals: dog(s) Sexually active: Yes Do you think of yourself as: straight/heterosexual Current gender identity: male What is your relationship status?: How often do you talk on the phone with friends or family?: twice per week How often do you get together with friends or relatives?: twice per week How often do you attend roman catholic or buddhism services?: 1-3 times per year Do you belong to any clubs or organized social groups?: yes Panel score (0-1 are the most socially isolated patients): 2 What type of physical activity do you participate in: walking Duration: < 15 minutes/day Frequency: 3-4 times per week Anabela/Rastafarian: Confucianist Special anabela needs: No Seatbelt use: always Helmet use: Yes Drive intox or ride w/intox dolly driver: No Water heater temp set <120 deg: Yes Working smoke detector in home: Yes Fire extinguisher in home: Yes Carbon monox detector in home: Yes Firearms in home: No Do you feel safe at home: Yes Do you feel safe in your relationship?: Yes
[2022-08-01 15:44] VITALS: BP 128/84; PULSE 79; RESP 16; TEMP 36.4; O2SAT 93
--- NOTE | 2022-08-01 16:54 | CMDISCH_ITS ---
- If Service Date Differs Date of service: 08/01/22 Time of Service: 16:54 LACE Index Scoring Tool - Questions: Length of Stay (in days): 3 Acuity (Admit via E.D.?): Yes E.D. Visits: 1 - Answers: Total Score: 7 Risk of Readmission: Low Risk Care Management Discharge Reason for Hospitalization: Diverticulitis with abscess Discharge Plan: Mr. Alex is a pleasant 57 year old male admitted on 07/29/22 for diverticulitis with abscess. He was started on antibiotics and his case was discussed with [facility] for IR drain placement. He went to [facility] on Saturday for drain placement. He has done well since then. He tolerated a soft diet today. Kingston will be discharged home with no new services when medically cleared by provider. He will follow up with his community providers and plan of care and transport with his fiancee. Nursing has done teaching for drain care. Plan is for him to go home today. He will need a CT scan next saturday and Follow up appt with Dr. Mehta on for possible drain removal. Patient/Family Education Needs: Review discharge instructions, discuss Ask Me Three.
== END 2022-08-01 16:20 | disposition home or self-care (01) | DRG 392 ==
LOC: ER 15:37 → MS 16:02
PROVIDERS: Admitting Provider Surgery; Emergency Provider Physician Assistant; PCP Nurse Practitioner Family; Visit Provider Surgery
DX: K57.20 Diverticulitis of large intestine with perforation and abscess without bleeding (principal); Z68.41 Body mass index [BMI] 40.0-44.9, adult; E66.01 Morbid (severe) obesity due to excess calories; F41.8 Other specified anxiety disorders; F17.210 Nicotine dependence, cigarettes, uncomplicated; G47.00 Insomnia, unspecified; E78.5 Hyperlipidemia, unspecified; E88.81 Metabolic syndrome and other insulin resistance; G47.30 Sleep apnea, unspecified
CPT/HCPCS: 36415; 80048; 80053; 83690; 84145; 87040; 87635; 96365; 96375; 99285; J1650; 74177; 81003; 83735; 85025; 86140; J1885; J2270; J2543; J3490

== ENCOUNTER → 2022-08-07 00:55 | Outpatient (CLI) | payer BC, SELFPAY ==
--- NOTE | 2022-08-07 06:55 | DI.CT_ITS ---
Exam(s) CT ABDOMEN PELVIS W EXAM: CT ABDOMEN PELVIS W CLINICAL HISTORY: pt has drain,Looking for resolution of abscess,diverticulitis with abscess,. TECHNIQUE: Imaging Protocol: Axial computed tomography images with coronal and sagittal reformatted images were created and reviewed CONTRAST MATERIAL: Intravenous: Omnipaque 100cc Oral: Yes. COMPARISON: CT CT ABDOMEN PELVIS W from 07/29/2022 FINDINGS: VISUALIZED LUNG BASES: No infiltrates nor pleural effusions. No significant nodules in the lung base s. ABDOMEN: There is no ascites in the upper abdomen. LIVER: There are no focal hepatic lesions evident. No evidence of intrahepatic abscess given the fin dings in the sigmoid. Also no air-gas in the portal venous system. GALLBLADDER/BILIARY: Tiny density on the posterior wall of the nondistended gallbladder, not associat ed with gallbladder wall edema. Gallbladder is not distended. No pericholecystic fluid. CBD is not dilated. PANCREAS: No evidence of pancreatic mass nor dilatation of the pancreatic duct. SPLEEN: Spleen is not enlarged. No obvious intrasplenic lesions. Splenic and portal veins are paten t. ADRENALS: There are no significant adrenal masses. KIDNEYS:No cysts evident. No solid renal masses. No calculi nor hydronephrosis.. ABDOMINAL AORTA: Abdominal aorta is not enlarged. LYMPH NODES:There is no retroperitoneal nor paraaortic adenopathy. ABDOMINAL WALL: No evidence of significant anterior abdominal wall nor inguinal hernia. GI: There has been interval placement of a percutaneous left of center pigtail drainage catheter. Ho wever, the drainage part of the pigtail catheter is adjacent to the sigmoid and is not within the act ual abscess. It fall short of the abscess by distance of 2.4 cm proximal to the anterior wall of the abscess. The abscess has not decreased in size. In addition, there is now some gas within the urin edith bladder and this most probably implies fistulous communication between the abscess and the bladde r lumen (or recent instrumentation of the bladder). There is no fluid in the dependent aspect of the pelvis. PELVIS: GI: No evidence of appendicitis. LYMPH NODES: There is no intrapelvic nor inguinal adenopathy. REPRODUCTIVE: Prostate and seminal vesicles unremarkable. URINARY BLADDER: As above. OSSEOUS: No significant osseous lesions. IMPRESSION: 1. Compared to the prior CT scan of 07/29/2022 there has been interval interventional procedure with placement of a percutaneous pigtail drainage catheter via anterior left of center abdominal wall rout e. However, the pigtail drainage catheter fall short of the actual abscess and the abscess has not d ecreased in size. Indeed, there is now gas within the urinary bladder which implies probable fistulo us communication between the urinary bladder and the contiguous abscess. Other possibility is that t he air in the bladder is from recent instrumentation. 2. No evidence of gas in the portal venous system and no evidence of intrahepatic abscess. 3. No evidence of bowel obstruction. 4. Tiny density in the gallbladder dependent wall may be small polyp for calculus. There is no gallbl adder wall edema to suggest acute cholecystitis. Biliary tree is not dilated. Report prioritized. RADIATION DOSE DELIVERED: 1,808.18mGy.cm Total DLP DATA REPOSITORY: All CT scans at this facility are submitted to the National Radiology Data Registry (NRDR) Dose Index Registry (DIR) with the [employer] (ACR). RADIATION OPTIMIZATION: All CT scans at this facility use at least one of these dose optimization te chniques: automated exposure control; mA and/or kV adjustment per patient size (includes targeted exa ms where dose is matched to clinical indication); or iterative reconstruction.
[2022-08-07] MEDS: Breeza Beverage 473 ML BTL PO (08:22)
[2022-08-07] MEDS: Gastrografin 120 ML BTL PO (08:23)
[2022-08-07] MEDS: Omnipaque 350 MG/ML 100 ML BTL IJ (09:20)
[2022-08-07] MEDS: Normal Saline Flush 10 ML SYR IVP (09:21)
== END ==
PROVIDERS: PCP Nurse Practitioner Family; Visit Provider Surgery
DX: K57.80 Diverticulitis of intestine, part unspecified, with perforation and abscess without bleeding (principal)
CPT/HCPCS: 74177; J3490

== ENCOUNTER → 2022-08-14 14:46 | Outpatient (CLI) | payer BC, SELFPAY ==
--- NOTE | 2022-08-14 10:30 | DI.CT_ITS ---
Exam(s) CT ABDOMEN PELVIS W EXAM: CT ABDOMEN PELVIS W CLINICAL HISTORY: f/u abscess/ s/p drain placement R29.818 N52.9 K57.80 TECHNIQUE: Imaging Protocol: Axial computed tomography images with coronal and sagittal reformatted images were created and reviewed CONTRAST MATERIAL: Intravenous: Omnipaque 350 Contrast volume:1 Isaacs mL Oral: Yes COMPARISON: CT CT ABDOMEN PELVIS W from 07/29/[address] ABDOMEN PELVIS W from 08/07/2022 FINDINGS: ABDOMEN: Lung Bases: There is a small hiatal hernia. Liver: Normal density. No measurable mass. Portal, Superior Mesenteric, and Splenic Veins: Unremarkable. Gallbladder and Biliary Tract: No radiodense calculus or dilation. Pancreas: Normal density, no abnormal calcifications or inflammatory process. Spleen: Normal. Adrenals: No masses seen. Kidneys: Normal size, contour and axis. No radiodense stones or obstructive uropathy. No masses seen. Abdominal Aorta: Abdominal portion non-dilated. There is mild atherosclerosis present. Bowel: There is no evidence of obstruction. Oral contrast was administered but has failed to go beyo nd the distal ileum. There is a normal appendix present. There is diverticulosis of the sigmoid col on. There is thickening of the wall of the mid sigmoid colon which may be slightly improved. Mild s tranding in the surrounding fat is noted. Since the prior examination there has been an interval dec rease in size of the abscess sitting on top of the urinary bladder and lateral and inferior to the si gmoid colon. The distal pigtail of the drainage catheter is seen within the bed of the abscess. The re is again seen air within the urinary bladder suggesting communication with the abscess. There are few foci of free air in the mesentery adjacent to the inflammatory changes in the pelvis, but no lar ge pneumoperitoneum is present. Peritoneal Cavity: No ascites, collection or mesenteric inflammatory response. Lymph Nodes: Within normal limits. Bones: Within normal limits for the patient's age. Soft Tissues: Unremarkable. PELVIS: Bladder: There is air seen within the urinary bladder suggesting communication with the patient's abs cess. There is persistent thickening along posterior and superior aspect of the urinary bladder elisa cent to the abscess. This likely reflects focal inflammation/infection. Reproductive Organs: Unremarkable as visualized. Lymph Nodes: Within normal limits. Bones: Within normal limits for the patient's age. IMPRESSION: 1. Interval decrease in size of the pelvic abscess. There is a tiny persistent fluid air collection within the abscess. Transverse diameter is 2.6 cm compared with 4.5 cm on the prior examination. Th e the drainage catheter appears to be in good position. 2. Persistent thickening and pericolonic inflammation around the mid sigmoid colon suspicious for stephanie xistent diverticulitis. This appears slightly improved compared to the prior examination. 3. Interval decrease in the urinary bladder wall thickening. 4. Air persisting within the urinary bladder suggesting communication with the abscess. RADIATION DOSE DELIVERED: 1,707.41mGy.cm Total DLP DATA REPOSITORY: All CT scans at this facility are submitted to the National Radiology Data Registry (NRDR) Dose Index Registry (DIR) with the [employer] (ACR). RADIATION OPTIMIZATION: All CT scans at this facility use at least one of these dose optimization te chniques: automated exposure control; mA and/or kV adjustment per patient size (includes targeted exa ms where dose is matched to clinical indication); or iterative reconstruction.
[2022-08-14] MEDS: Breeza Beverage 473 ML BTL PO ×2 (11:20→11:21)
[2022-08-14] MEDS: Gastrografin 120 ML BTL IVP (11:22)
[2022-08-14 11:27] LABS: Bilirubin Negative (Negative); Blood Negative (Negative); Clarity Clear (Clear); Glucose Negative (Negative); Ketones Negative (Negative); Leukocyte Esterase Negative (Negative); Nitrite Negative (Negative); Specific Gravity <= 1.005 (1.005-1.025); Urobilinogen 0.2 EU/dL (Up TO 0.2)
[2022-08-14 11:43] LABS: Abs Immature Grans 0.04 10^3/uL (0.0-0.06); Absolute Basophil Count 0.23 10^3/uL (0.0-0.2); Absolute Eosinophil Count 0.55 10^3/uL (0.0-0.7); Absolute Lymphocyte Count 2.16 10^3/uL (1.2-3.4); Absolute Monocyte Count 0.74 10^3/uL (0.1-0.8); Absolute Neutrophil Count 7.04 10^3/uL (1.2-6.7); Basophils % 2.1; Eosinophils % 5.1; HCT 41.2 % (40.0-50.0); HGB 14.1 g/dL (13.5-17.5); Immature Grans % 0.4; Lymphocytes % 20.1; MCH 30.9 pg (27.0-33.0); MCHC 34.2 % (32.0-36.0); MCV 90 fL (80-95); Monocytes % 6.9; Neutrophils % 65.4; Platelet Count 388 10^3/uL (130-400); RBC 4.56 10^6/uL (4.36-5.78); RDW 13.6 % (11.8-14.1); RDW-SD 45.5 fL; WBC 10.76 10^3/uL (4.4-10.8)
[2022-08-14 11:55] LABS: Anion Gap 9.3 mmol/L (3-11); BUN 10 mg/dL (7-18); C-Reactive Protein 0.67 mg/dL (0.0-0.3); CO2 24.7 mmol/L (21.0-32.0); CREATININE 0.7 mg/dL (0.70-1.30); Calcium 8.9 mg/dL (8.5-10.1); Chloride 102 mmol/L (98-107); Glucose 106 mg/dL (74-106); Magnesium 1.9 mg/dL (1.8-2.4); Potassium 3.7 mmol/L (3.5-5.1); Sodium 136 mmol/L (136-145)
[2022-08-14] MEDS: Omnipaque 350 MG/ML 500 ML BTL-Imaging package IJ (13:03)
== END ==
PROVIDERS: Nurse Practitioner Adult Health; PCP Nurse Practitioner Family; Visit Provider Surgery
DX: K57.80 Diverticulitis of intestine, part unspecified, with perforation and abscess without bleeding (principal); N52.9 Male erectile dysfunction, unspecified; R29.818 Other symptoms and signs involving the nervous system; R30.0 Dysuria; E66.01 Morbid (severe) obesity due to excess calories; E78.5 Hyperlipidemia, unspecified; E88.81 Metabolic syndrome and other insulin resistance; F17.200 Nicotine dependence, unspecified, uncomplicated; F41.8 Other specified anxiety disorders; G47.00 Insomnia, unspecified; R73.01 Impaired fasting glucose; Z68.41 Body mass index [BMI] 40.0-44.9, adult
CPT/HCPCS: 80048; 74177; 81003; 83735; 85025; 86140

== ENCOUNTER 2022-08-23 22:07 | Observation (INO) | payer BC, SELFPAY ==
--- NOTE | 2022-08-23 22:00 | DI.CT_ITS ---
Exam(s) CT ABDOMEN PELVIS W EXAM: CT ABDOMEN PELVIS W CLINICAL HISTORY: abdominal drain, and now feces/pain. TECHNIQUE: Imaging Protocol: Axial computed tomography images with coronal and sagittal reformatted images were created and reviewed CONTRAST MATERIAL: Intravenous: Omnipaque 100cc Oral: None COMPARISON: CT CT ABDOMEN PELVIS W from 08/07/[address] ABDOMEN PELVIS W from 08/14/2022 FINDINGS: VISUALIZED LUNG BASES: No nodules nor pleural effusions evident. ABDOMEN: There is no ascites. LIVER: There are no focal hepatic lesions evident. No evidence of a [place] abscess. No air-gas wit hin the portal venous system. GALLBLADDER/BILIARY: No obvious gallbladder pathology. CBD is not dilated. PANCREAS: No evidence of pancreatic mass nor dilatation of the pancreatic duct. SPLEEN: Spleen is not enlarged. No obvious intrasplenic lesions. Splenic and portal veins are paten t. ADRENALS: There are no significant adrenal masses. KIDNEYS:No cysts evident. No solid renal masses. No calculi nor hydronephrosis.. ABDOMINAL AORTA: Abdominal aorta is not enlarged. LYMPH NODES:There is no retroperitoneal nor paraaortic adenopathy. ABDOMINAL WALL: No evidence of significant anterior abdominal wall nor inguinal hernia. GI: The percutaneous pigtail drainage catheter is again noted. The distal pigtail is in the remainin g small abscess intimately associated with the superior wall of the urinary bladder and adjacent torri rit sigmoid. The pigtail aspect of the drainage catheter is slightly more Cor[place] than previous, possi joel indicating interval revision. The previously described small persistent remaining portion of the abscess is again noted, measuring approximately 3 by 2 by 3.5 cm. This is just above and to the rig ht of the pigtail component of the drainage catheter. There is again some air-gas seen in the urinar y bladder which is suspicious for an element of fistulous communication of the abscess to the bladder lumen. There is no debris in the urinary bladder. PELVIS: GI: No evidence of appendicitis.No new culprit diverticuli evident. LYMPH NODES: There is no intrapelvic nor inguinal adenopathy. REPRODUCTIVE: Prostate and seminal vesicles normal size. URINARY BLADDER: As above. OSSEOUS: No significant osseous lesions. No osseous lesions. IMPRESSION: 1. Compared to the most recent CT scan of 08/14/2022 the pigtail drainage catheter remains in satisfa ctory position within the abscess which is contiguous with the superior wall of the urinary bladder. There is also still noted an adjacent small abscess measuring 3 x 2 x 3.5 cm just above and to the r ight of the pigtail component of the drainage catheter. 2. Again noted is gas in the urinary bladder implying fistulous communication. 3. Sigmoid diverticulitis findings again noted, similar to previous. 4. There is no gas in the portal venous system and no evidence of hepatic abscess. RADIATION DOSE DELIVERED: 1,403.75mGy.cm Total DLP DATA REPOSITORY: All CT scans at this facility are submitted to the National Radiology Data Registry (NRDR) Dose Index Registry (DIR) with the [employer] (ACR). RADIATION OPTIMIZATION: All CT scans at this facility use at least one of these dose optimization te chniques: automated exposure control; mA and/or kV adjustment per patient size (includes targeted exa ms where dose is matched to clinical indication); or iterative reconstruction.
[2022-08-23 22:08] VITALS: BP 177/91; PULSE 80; RESP 18; TEMP 36.6; O2SAT 97
--- NOTE | 2022-08-23 22:20 | W.ED.GENAD ---
Discharge Plan Disposition Patient Disposition: [facility] INPATIENT Condition: Stable Discharge Details Chief Complaint: Abd Prob Clinical Impression: Abdominal pain Primary Care Provider: Maribel Carpenter ED Provider: Corby Moss Home Meds and New Rx's Prescriptions: No Action sildenafil (pulm.hypertension) 20 mg tablet 20 mg PO DAILY PRN (Reason: sexual activity) Qty: 14 3RF Rx Instructions: Take 20 mg once daily as needed 1 hour before sexual activity albuterol sulfate 90 mcg/actuation HFA aerosol inhaler 1 - 2 puff inhalation Q4H PRN (Reason: shortness of breath or wheezing) Qty: 1 3RF Rx Instructions: Dispense brand of albuterol inhaler covered by patient's insurance tamsulosin [Flomax] 0.4 mg capsule 0.4 mg PO DAILY Qty: 30 2RF metronidazole 500 mg tablet 500 mg PO .COMPLEX Qty: 3 0RF Rx Instructions: 500 mg orally Take 1 tablets at 1 PM on 08/30 Take 1 tablet at 2 PM on 08/30 Take 1 Tablet at 10 PM on 08/30 neomycin 500 mg tablet 500 mg PO .COMPLEX Qty: 6 0RF Rx Instructions: Take 2 tablets at 1 PM on 08/30 Take 2 tablets at 2 PM on 08/30 Take 2 Tablets at 10 PM on 08/30 ondansetron HCl 8 mg tablet 8 mg PO .COMPLEX Qty: 3 0RF Rx Instructions: Take 1 tab at 1 PM on 08/30, take 1 tab at 9 PM on 08/30, take 1 tab with a sip of water on the morning of 08/31 bisacodyl [Dulcolax (bisacodyl)] 5 mg tablet,delayed release (DR/EC) 5 mg PO .COMPLEX Qty: 8 0RF Rx Instructions: Take as instructed buspirone 7.5 mg tablet 7.5 mg PO BID PRN (Reason: anxiety) Qty: 180 0RF atorvastatin [Lipitor] 40 mg tablet 40 mg PO HS Qty: 90 3RF sertraline 50 mg tablet 50 mg PO DAILY Qty: 90 1RF Medical Decision Making This is a 57-year-old male with past medical history of high cholesterol, recent diverticulitis with subsequent perforation and abscess with potential colonic vesicular fistula, who had a drain placed at [facility], and who is also recently on Augmentin for a prolonged course, who presents today for evaluation of lower abdominal pain and change in drainage from his drain site. Patient states that this morning he noted some increased lower abdominal pain, it was mild in nature. It is continued throughout the day. At the same time he noticed an increased fecal content in his drain itself, and then this evening at about 8 PM it transitioned to blood and continued fecal matter. He denies any fever or chills. He denies any chest pain or shortness of breath. He denies any urinary changes. No other complaints at this time. Patient is no longer on antibiotics. He is scheduled to have a surgery next week here at [facility] with Dr. Yan. Exam demonstrates mild lower abdominal tenderness, drain site is unremarkable, the patient's drain itself and collection bulb shows evidence of fecal matter and blood. Concern for abscess, active bleed, or other acute etiology secondary to his notable previous infectious processes. We will get a CT scan, treat the patient's pain, monitor closely and reassess. 12:[address] scan has returned and actually shows no evidence of significant fluid collection, laboratory work-up shows no white count bandemia or left shift. Patient feels much better after pain medication. However because of the change in drainage, and the patient's notable recent history and complications, I do feel that further evaluation is warranted. I did contact Dr. aYn who is well acquainted with the patient and discussed the case with him. He agrees with observation overnight and reassessment in the morning. We will hold off on antibiotics for the time being. We will continue to monitor his pain. I will place admission orders in on his behalf. I have extensively reviewed the treatment plan with the patient. I have addressed all patient concerns at this time. I have also discussed the plan with the admitting physician and they agree with the current assessment and plan and have agreed to assume responsibility for the patient. All parties demonstrate verbal understanding and agreement with our assessment and plan at this time. The documentation in this chart was dictated using [employer] dictation software. Please excuse any dictation errors. FINDINGS: Tubes, catheters and devices: Pigtail drainage catheter is noted in the central pelvis along the right side of the mid sigmoid colon. There is no significant fluid collection surrounding the pigtail drain. There is some minor residual extraluminal air within the cavity adjacent to the pigtail drain. Lungs: Posterior bilateral mild lung base atelectasis. Pleural spaces: No pleural effusion. Heart: Normal heart size. No pericardial effusion. No coronary artery atherosclerotic calcium visible period Liver: Diffuse moderate fatty liver change. Gallbladder and bile ducts: The gallbladder is normal in size and shape. No stones or inflammatory changes. Pancreas: Mild to moderate pancreatic atrophy. No acute features. Spleen: The spleen is normal in size, contour and attenuation. Adrenal glands: The adrenal glands are normal in size and contour bilaterally. Kidneys and ureters: The kidneys bilaterally are unremarkable. Normal attenutation. No hydronephrosis. No calculi. Stomach and bowel: Gastric morphology is unremarkable. No edema. No gastric outlet obstruction. Small hiatal hernia. No acute features. Small bowel loops are normal in course and caliber. There is no mucosal edema or bowel wall thickening. No obstructive features. Large bowel is normal in course and caliber. There is mild edema of the sigmoid colon which is likely residual change from previous diverticulitis. No mechanical obstruction evident. Appendix: No evidence of appendicitis. Intraperitoneal space: No gross free fluid. Minor extraluminal air in the central pelvis adjacent to the pigtail drain. No gross free air in the abdomen. Vasculature: Unremarkable. No abdominal aortic aneurysm. Lymph nodes: Unremarkable. No enlarged lymph nodes. Urinary bladder: Nonspecific minor air in the urinary bladder. Cannot exclude cystitis. Recommend clinical correlation with urinalysis. This might be reflection of previous catheterization of the bladder. Differential diagnosis would include an enterovesical fistula. There is thickening of the posterior bladder dome Reproductive: Unremarkable as visualized. Bones/joints: Degenerative thoracic and lumbar spine changes. Soft tissues: Unremarkable. IMPRESSION: 1. Residual [id number] sigmoid colon edema may reflect residual change from previous diverticulitis or colitis. 2. Central pelvic pigtail drainage catheter is in position. There is no significant fluid collection. There is some minor extraluminal air adjacent to the pigtail drain. 3. Air within the urinary bladder and some thickening of the posterior bladder dome. Cannot exclude an enterovesical fistula. 4. Fatty liver change. 5. Pancreatic atrophy. 6. No significant change in appearance of sigmoid colon, pelvic drain, and urinary bladder since 08/14/2022. Thank you for allowing us to participate in the care of your patient. Dictated and Authenticated by: Jeremías Garner MD 08/23/2022 11:53 PM Eastern Time ([place] & [place]) HPI General Date/Time Provider Initiated Documentation: 08/23/22 22:12. HPI Narrative: This is a 57-year-old male with past medical history of high cholesterol, recent diverticulitis with subsequent perforation and abscess with potential colonic vesicular fistula, who had a drain placed at [facility], and who is also recently on Augmentin for a prolonged course, who presents today for evaluation of lower abdominal pain and change in drainage from his drain site. Patient states that this morning he noted some increased lower abdominal pain, it was mild in nature. It is continued throughout the day. At the same time he noticed an increased fecal content in his drain itself, and then this evening at about 8 PM it transitioned to blood and continued fecal matter. He denies any fever or chills. He denies any chest pain or shortness of breath. He denies any urinary changes. No other complaints at this time. Patient is no longer on antibiotics. He is scheduled to have a surgery next week here at [facility] with Dr. Yan. Related Data Home Medications Medication Instructions Recorded Confirmed sildenafil (pulm.hypertension) 20 20 mg PO DAILY PRN sexual activity 09/01/18 08/23/22 mg tablet #14 tab-caps buspirone 7.5 mg tablet 7.5 mg PO BID PRN anxiety #180 02/17/20 08/23/22 tab-caps albuterol sulfate 90 mcg/actuation 1 - 2 puff inhalation Q4H PRN 09/28/20 08/23/22 aerosol inhaler shortness of breath or wheezing #1 unit atorvastatin 40 mg tablet (Lipitor) 40 mg PO HS #90 tab-caps 09/27/21 08/23/22 sertraline 50 mg tablet 50 mg PO DAILY #90 tab-caps 05/22/22 08/23/22 tamsulosin 0.4 mg capsule (Flomax) 0.4 mg PO DAILY #30 caps 07/16/22 08/23/22 bisacodyl 5 mg tablet,delayed 5 mg PO .COMPLEX #8 tabs 08/22/22 08/23/22 release (Dulcolax (bisacodyl)) metronidazole 500 mg tablet 500 mg PO .COMPLEX #3 tabs 08/22/22 08/22/22 neomycin 500 mg tablet 500 mg PO .COMPLEX #6 tabs 08/22/22 08/23/22 ondansetron HCl 8 mg tablet 8 mg PO .COMPLEX #3 tabs 08/22/22 08/23/22 Previous Rx's Medication Instructions Recorded sildenafil (pulm.hypertension) 20 20 mg PO DAILY PRN sexual activity 09/01/ mg tablet #14 tab-caps buspirone 7.5 mg tablet 7.5 mg PO BID PRN anxiety #180 02/17/20 tab-caps albuterol sulfate 90 mcg/actuation 1 - 2 puff inhalation Q4H PRN 09/28/20 aerosol inhaler shortness of breath or wheezing #1 unit atorvastatin 40 mg tablet (Lipitor) 40 mg PO HS #90 tab-caps 09/27/21 sertraline 50 mg tablet 50 mg PO DAILY #90 tab-caps 05/22/22 tamsulosin 0.4 mg capsule (Flomax) 0.4 mg PO DAILY #30 caps 07/16/22 bisacodyl 5 mg tablet,delayed 5 mg PO .COMPLEX #8 tabs 08/22/22 release (Dulcolax (bisacodyl)) metronidazole 500 mg tablet 500 mg PO .COMPLEX #3 tabs 08/22/22 neomycin 500 mg tablet 500 mg PO .COMPLEX #6 tabs 08/22/22 ondansetron HCl 8 mg tablet 8 mg PO .COMPLEX #3 tabs 08/22/22 Allergies Allergy/AdvReac Type Severity Reaction Status Date / Time Sulfa (Sulfonamide AdvReac Severe Diarrhea Verified 08/23/22 22:16 Antibiotics) levofloxacin [From Levaquin] AdvReac Unknown Diarrhea Verified 08/23/22 22:16 General Stated Complaint: Abd Prob CELSA: 3 Review of Systems All systems reviewed & are unremarkable except as noted in HPI and below PFSH All Active Problems (Updated 08/24/22 @ 00:29 by Corby Moss DO) Abdominal pain (Acute) Pain, foot (Acute) Nail dystrophy (Acute) Suspected sleep apnea (Acute) Diverticulitis of intestine with abscess (Acute) 07/31/22 DH - CT guided drain placement perivesicular/perisigmoid diverticular abscess 08/10/22 DH - Replacement of dislodged pelvic abscess catheter Erectile dysfunction (Chronic 03/04/17) Medical History Anxiety with depression Hyperlipidemia 09/2020 labs: adequate response, continue statin IFG (impaired fasting glucose) Insomnia disorder Metabolic syndrome Obesity Tobacco use disorder Surgical History Arthroplasty of knee (~2012) L excisional bx rgt upper arm (12/28/05) lipoma Family History Father Essential hypertension Anxiety Hyperlipidemia Maternal Aunt Neoplasm metastatic esophageal CA Mother Hyperlipidemia Stroke Sister Goiter S/p bx (benign) Breast cancer Social History Smoking/Tobacco Use Status: Current every day Tobacco Type: cigarettes Smoking packs per day: 1.00 Smoking cigarettes per day: 20.0 Years smoked: 30 Smoking pack-years: 30.00 Quit status: considering quitting Smoking risk assessment performed?: Yes Alcohol Intake: current Alcohol Intake frequency: holidays/special occasions only Drug use: Never Substance use type: does not use Adopted: No Caregiver/Support person: No Foster care: No Household members: family Housing: house Number of Children: 1 Communication Needs: Corrective Lenses Education Level: college Do you need help understanding health information?: Rarely 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 Pets and animals: Yes Pets and animals: dog(s) Sexually active: Yes Do you think of yourself as: straight/heterosexual Current gender identity: male What is your relationship status?: How often do you talk on the phone with friends or family?: twice per week How often do you get together with friends or relatives?: twice per week How often do you attend christianity or druze services?: 1-3 times per year Do you belong to any clubs or organized social groups?: yes Panel score (0-1 are the most socially isolated patients): 2 What type of physical activity do you participate in: walking Duration: < 15 minutes/day Frequency: 3-4 times per week Anabela/Sabianist: Cheondoism Special anabela needs: No Seatbelt use: always Helmet use: Yes Drive intox or ride w/intox assembly line driver: No Water heater temp set <120 deg: Yes Working smoke detector in home: Yes Fire extinguisher in home: Yes Carbon monox detector in home: Yes Firearms in home: No Do you feel safe at home: Yes Do you feel safe in your relationship?: Yes Exam Narrative Exam Narrative: 1.Const: Well-nourished, Well-developed, appearing stated age 2.Eyes: PERRL, no conjunctival injection, and symmetrical lids. 3.ENT: Atraumatic external nose and ears. Moist MM. Neck: Symmetric, trachea midline, No thyromegaly. 4.CVS: +S1/S2, No murmurs or gallops. Peripheral pulses 2+ and equal in all extremities. Brisk capillary refill in all extremities. 5.RESP: Unlabored respiratory effort. Clear to auscultation bilaterally. No wheezes rales or rhonchi 6.GI: Soft, nondistended. Mild voluntary guarding in the lower abdomen. Mild tenderness. No genital tenderness. Drain is in place, superficial drain site is unremarkable in appearance, however drain contents is bloody with some fecal matter. 7.MSK: Normocephalic/Atraumatic, Extremities w/o deformity or ttp No cyanosis or clubbing, Normal movement of all extremities 8.Skin: Warm, Dry. No rashes or lesions. 9.Neuro: lobby porter II-XII grossly intact. Sensation grossly intact, no focal neurologic deficits. 10.Psych: (AAO) x3. Appropriate mood and affect Course Vital Signs Vital signs: Vital Signs Temperature 36.6 C 08/23/22 22:08 Pulse 80 08/23/22 22:08 Respiratory Rate 18 08/23/22 22:08 Blood Pressure 177/91 H 08/23/22 22:08 Pulse Oximetry 97 08/23/22 22:08 Temperature 36.6 C 08/23/22 22:08 Temperature Source Skin 08/23/22 22:08 Pulse 80 08/23/22 22:08 Respiratory Rate 18 08/23/22 22:08 Respiratory Effort 08/23/22 22:13 Blood Pressure 177/91 H 08/23/22 22:08 Blood Pressure Position Supine 08/23/22 22:08 Pulse Oximetry 97 08/23/22 22:08 Oxygen Delivery Method Room Air 08/23/22 22:08 Oxygen Flow Rate 0 08/23/22 22:08 Pain Level 7 08/23/22 22:08 Comment 08/23/22 22:08 Lab/Test Results Lab/Test Results: 08/23/22 22:13 Blood Blood Culture - Pending 08/23/22 22:13 Blood Blood Culture - Pending
[2022-08-23] MEDS: Normal Saline 500 ML IV (22:22)
[2022-08-23] MEDS: MORPHine 4 MG/ML SYR IVP (22:26)
[2022-08-23 22:32] LABS: Lactate 0.7 mmol/L (0.6-1.4)
[2022-08-23 22:34] LABS: Abs Immature Grans 0.03 10^3/uL (0.0-0.06); Absolute Basophil Count 0.25 10^3/uL (0.0-0.2); Absolute Eosinophil Count 0.85 10^3/uL (0.0-0.7); Absolute Neutrophil Count 4.73 10^3/uL (1.2-6.7); Basophils % 2.6; Eosinophils % 8.9; HCT 39.6 % (40.0-50.0); HGB 13.4 g/dL (13.5-17.5); Immature Grans % 0.3; Lymphocytes % 28.2; MCHC 33.8 % (32.0-36.0); MCV 92 fL (80-95); Monocytes % 10.5; Neutrophils % 49.5; Platelet Count 336 10^3/uL (130-400); RBC 4.32 10^6/uL (4.36-5.78); RDW 14.1 % (11.8-14.1); RDW-SD 47.5 fL; WBC 9.56 10^3/uL (4.4-10.8)
[2022-08-23 22:50] LABS: ALT 29 U/L (16-63); AST 14 U/L (15-37); Albumin 3.5 g/dL (3.4-5.0); Alkaline Phosphatase 126 U/L (46-116); Anion Gap 8.3 mmol/L (3-11); BUN 12 mg/dL (7-18); Bilirubin, Total 0.3 mg/dL (0.2-1.0); CO2 25.7 mmol/L (21.0-32.0); CREATININE 0.7 mg/dL (0.70-1.30); Calcium 8.7 mg/dL (8.5-10.1); Chloride 105 mmol/L (98-107); Glucose 110 mg/dL (74-106); Potassium 3.7 mmol/L (3.5-5.1); Sodium 139 mmol/L (136-145); Total Protein 7.1 g/dL (6.4-8.2)
[2022-08-23] MEDS: Omnipaque 350 MG/ML 100 ML BTL IJ (22:51)
--- NOTE | 2022-08-23 23:54 | DI.VRAD_ITS ---
PROCEDURE INFORMATION: Exam: CT Abdomen And Pelvis With Contrast Exam date and time: 08/23/2022 10:45 PM Age: 57 years old Clinical indication: Pain and device placement; Gi device; Other: Abscess drain; Abdominal pain; Generalized; Prior surgery; Surgery date: 3-7 days post-operative; Surgery type: Abdominal drain TECHNIQUE: Imaging protocol: Computed tomography of the abdomen and pelvis with contrast. Radiation optimization: All CT scans at this facility use at least one of these dose optimization techniques: automated exposure control; mA and/or kV adjustment per patient size (includes targeted exams where dose is matched to clinical indication); or iterative reconstruction. Contrast material: OMNI 350; Contrast volume: 100 ml; Contrast route: INTRAVENOUS (IV); COMPARISON: CT ABDOMEN PELVIS W 08/14/2022 1:07 PM FINDINGS: Tubes, catheters and devices: Pigtail drainage catheter is noted in the central pelvis along the right side of the mid sigmoid colon. There is no significant fluid collection surrounding the pigtail drain. There is some minor residual extraluminal air within the cavity adjacent to the pigtail drain. Lungs: Posterior bilateral mild lung base atelectasis. Pleural spaces: No pleural effusion. Heart: Normal heart size. No pericardial effusion. No coronary artery atherosclerotic calcium visible period Liver: Diffuse moderate fatty liver change. Gallbladder and bile ducts: The gallbladder is normal in size and shape. No stones or inflammatory changes. Pancreas: Mild to moderate pancreatic atrophy. No acute features. Spleen: The spleen is normal in size, contour and attenuation. Adrenal glands: The adrenal glands are normal in size and contour bilaterally. Kidneys and ureters: The kidneys bilaterally are unremarkable. Normal attenutation. No hydronephrosis. No calculi. Stomach and bowel: Gastric morphology is unremarkable. No edema. No gastric outlet obstruction. Small hiatal hernia. No acute features. Small bowel loops are normal in course and caliber. There is no mucosal edema or bowel wall thickening. No obstructive features. Large bowel is normal in course and caliber. There is mild edema of the sigmoid colon which is likely residual change from previous diverticulitis. No mechanical obstruction evident. Appendix: No evidence of appendicitis. Intraperitoneal space: No gross free fluid. Minor extraluminal air in the central pelvis adjacent to the pigtail drain. No gross free air in the abdomen. Vasculature: Unremarkable. No abdominal aortic aneurysm. Lymph nodes: Unremarkable. No enlarged lymph nodes. Urinary bladder: Nonspecific minor air in the urinary bladder. Cannot exclude cystitis. Recommend clinical correlation with urinalysis. This might be reflection of previous catheterization of the bladder. Differential diagnosis would include an enterovesical fistula. There is thickening of the posterior bladder dome Reproductive: Unremarkable as visualized. Bones/joints: Degenerative thoracic and lumbar spine changes. Soft tissues: Unremarkable. IMPRESSION: 1. Residual [id number] sigmoid colon edema may reflect residual change from previous diverticulitis or colitis. 2. Central pelvic pigtail drainage catheter is in position. There is no significant fluid collection. There is some minor extraluminal air adjacent to the pigtail drain. 3. Air within the urinary bladder and some thickening of the posterior bladder dome. Cannot exclude an enterovesical fistula. 4. Fatty liver change. 5. Pancreatic atrophy. 6. No significant change in appearance of sigmoid colon, pelvic drain, and urinary bladder since 08/14/2022. Dictated and Authenticated by: Jeremías Garner MD. Ordering:OLI Tavarez MD
[2022-08-24 00:10] LABS: Bilirubin Negative (Negative); Blood Trace-lysed (Negative); Clarity Clear (Clear); Glucose Negative (Negative); Ketones Negative (Negative); Leukocyte Esterase Small (Negative); Nitrite Negative (Negative); Urobilinogen 0.2 EU/dL (Up TO 0.2)
[2022-08-24 00:12] LABS: Bacteria Few HPF (Negative); C & S Indicated? Yes; Casts Negative LPF (Negative); Crystals Negative HPF (Negative); Epithelial Cells Rare HPF (Negative); Mucus Negative (Negative)
[2022-08-24 00:34] VITALS: BP 117/76; PULSE 61; RESP 18; O2SAT 96
[2022-08-24 00:40] LABS: Source Nasal/Nares
[2022-08-24] MEDS: MORPHine 2 MG/ML SYR IVP ×4 (00:56→09:36)
[2022-08-24 01:17] VITALS: BP 124/78; PULSE 59; RESP 18; TEMP 36; O2SAT 95
[2022-08-24] MEDS: Normal Saline Flush 10 ML SYR IVP ×3 (01:48→09:23)
[2022-08-24] MEDS: Normal Saline 1,000 ML 150 ML IV ×2 (01:48→08:43)
[2022-08-24 03:02] VITALS: BP 119/79; PULSE 68; RESP 16; TEMP 36.6; O2SAT 96
[2022-08-24 06:56] LABS: ALT 27 U/L (16-63); AST 12 U/L (15-37); Albumin 3.2 g/dL (3.4-5.0); Alkaline Phosphatase 121 U/L (46-116); Anion Gap 7.5 mmol/L (3-11); BUN 10 mg/dL (7-18); Bilirubin, Total 0.3 mg/dL (0.2-1.0); CO2 26.5 mmol/L (21.0-32.0); CREATININE 0.6 mg/dL (0.70-1.30); Calcium 8.6 mg/dL (8.5-10.1); Chloride 106 mmol/L (98-107); Estimated GFR 111.89 (mL/min/1.73m2); Glucose 88 mg/dL (74-106); Sodium 140 mmol/L (136-145); Total Protein 6.5 g/dL (6.4-8.2)
[2022-08-24 08:11] VITALS: BP 124/74; PULSE 64; RESP 16; TEMP 36; O2SAT 94
[2022-08-24 09:12] LABS: HCT 41.2 % (40.0-50.0); HGB 13.8 g/dL (13.5-17.5); MCH 31.3 pg (27.0-33.0); MCHC 33.5 % (32.0-36.0); MCV 93 fL (80-95); MPV 9.4 fL (8.0-11.0); Platelet Count 327 10^3/uL (130-400); RBC 4.41 10^6/uL (4.36-5.78); RDW 14.4 % (11.8-14.1); RDW-SD 49.7 fL; WBC 9.19 10^3/uL (4.4-10.8)
[2022-08-24 09:21] LABS: COVID-19 PCR Negative (Negative)
[2022-08-24 11:42] VITALS: BP 164/69; PULSE 64; RESP 22; TEMP 36.3; O2SAT 98
--- NOTE | 2022-08-24 12:15 | DSE_ITS ---
Date of service: 08/24/22 Time of Service: 12:15 DS: Diagnosis Discharge Diagnosis (1) Abdominal pain: Status: Acute Asessment and Plan: Start Flomax. Take 1 pill daily. Start Ditropan. Take 1 pill daily Discharge Plan Disposition Patient Disposition: HOME Condition: Stable Discharge Details Reason For Visit: Abdominal Pain Admit Date/Time: 08/24/22 00:25 Admit Provider: Rambo Yan Attending Provider: Rambo Yan Primary Care Provider: Maribel Carpenter Hospital Course Hospital Course: Kingston is a 57-year-old male with a past medical history of perforated diverticulitis. He has been treated with percutaneous drain sitting between the sigmoid colon and bladder. Last night he irrigates the drain daily. A few days ago, he noticed a little bit of bloody discharge, that worsened last night. Additionally, he had new onset crampy abdominal pain lower in the pelvis. There seems to be some associated with emptying of his bladder. He underwent a CAT scan of the abdomen and pelvis that looked about the same as the previous CAT scans. Additionally, he underwent serial hemoglobins which were stable. Home Meds and New Rx's Prescriptions: No Action sildenafil (pulm.hypertension) 20 mg tablet 20 mg PO DAILY PRN (Reason: sexual activity) Qty: 14 3RF Rx Instructions: Take 20 mg once daily as needed 1 hour before sexual activity albuterol sulfate 90 mcg/actuation HFA aerosol inhaler 1 - 2 puff inhalation Q4H PRN (Reason: shortness of breath or wheezing) Qty: 1 3RF Rx Instructions: Dispense brand of albuterol inhaler covered by patient's insurance tamsulosin [Flomax] 0.4 mg capsule 0.4 mg PO DAILY Qty: 30 2RF metronidazole 500 mg tablet 500 mg PO .COMPLEX Qty: 3 0RF Rx Instructions: 500 mg orally Take 1 tablets at 1 PM on 08/30 Take 1 tablet at 2 PM on 08/30 Take 1 Tablet at 10 PM on 08/30 neomycin 500 mg tablet 500 mg PO .COMPLEX Qty: 6 0RF Rx Instructions: Take 2 tablets at 1 PM on 08/30 Take 2 tablets at 2 PM on 08/30 Take 2 Tablets at 10 PM on 08/30 ondansetron HCl 8 mg tablet 8 mg PO .COMPLEX Qty: 3 0RF Rx Instructions: Take 1 tab at 1 PM on 08/30, take 1 tab at 9 PM on 08/30, take 1 tab with a sip of water on the morning of 08/31 bisacodyl [Dulcolax (bisacodyl)] 5 mg tablet,delayed release (DR/EC) 5 mg PO .COMPLEX Qty: 8 0RF Rx Instructions: Take as instructed buspirone 7.5 mg tablet 7.5 mg PO BID PRN (Reason: anxiety) Qty: 180 0RF atorvastatin [Lipitor] 40 mg tablet 40 mg PO HS Qty: 90 3RF sertraline 50 mg tablet 50 mg PO DAILY Qty: 90 1RF Discharge Instructions Instructions: Abdominal Pain (ED) Activity:: Activity as Tolerated Equipment/Supplies:: No Equipment Needed Diet:: As Tolerated Discharge Orders Discharge Orders: Discharge Order (Routine); Ordered 08/24/22 Ordered By: Rambo Yan DS: Summary Time Spent with Patient providing and/or coordinating discharge services: Greater than 30 minutes Status at Discharge Functional status at discharge: independent ambulation Overall status at discharge: patient is back to baseline Mental Status: mental status grossly normal Speech and Movement: speech and movement normal Mood: congruent mood Affect: normal affect Exam Const General: cooperative and comfortable Nutritional Appearance: overweight Orientation: alert, awake and oriented x3 GI Inspection: non-distended Palpation: soft, no guarding and tender Auscultation: normal bowel sounds Psych Mental Status: mental status grossly normal Speech and Movement: speech and movement normal Mood: congruent mood Affect: normal affect DS: Data Vitals/I&O Vitals and I&O: Vital Signs Temperature 97.3 F L 08/24/22 11:42 Temperature Source Tympanic 08/24/22 11:42 Pulse 64 08/24/22 11:42 Pulse Rhythm Regular 08/24/22 07:35 Respiratory Rate 22 08/24/22 11:42 Respiratory Effort Non-Labored 08/24/22 07:35 Respiratory Depth Normal 08/24/22 07:35 Respiratory Pattern Normal 08/24/22 07:35 Blood Pressure 164/69 H 08/24/22 11:42 Blood Pressure Position Supine 08/23/22 22:08 Pulse Oximetry 98 08/24/22 11:42 Oxygen Delivery Method Room Air 08/24/22 11:42 Oxygen Flow Rate 0 08/24/22 11:42 Pain Level 2 08/24/22 11:42 Comment 08/23/22 22:08 Intake & Output 08/23/22 08/24/22 08/24/22 23:59 11:59 23:59 Intake Total 500 / 500 1317.5 / 1317.5 Output Total Balance 500 / 500 1292.5 / 1292.5 Weight 302 lb 302 lb Intake: IV 500 / 500 1317.5 / 1317.5 Output: Drainage Right Abdomen Other: Urine Appearance Clear Comment one void independently in toilet Voiding Methods Toilet Data Completed and Pending Labs on day of discharge: Labs from last 24 hours 08/24/22 08/24/22 08/24/22 05:47 05:43 00:33 WBC 9.19 RBC 4.41 Hgb 13.8 Hct 41.2 MCV 93 MCH 31.3 MCHC 33.5 RDW 14.4 H Plt Count 327 MPV 9.4 Immature Gran % Neutrophils % Lymphocytes % Monocytes % Eosinophils % Basophils % Nucleated RBC % Absolute Neutrophils Absolute Lymphocytes Absolute Monocytes Absolute Eosinophils Absolute Basophils VBG Lactate Sodium 140 Potassium 4.0 Chloride 106 Carbon Dioxide 26.5 Anion Gap 7.5 BUN 10 Creatinine 0.6 L Est GFR (CKD-EPI 2020) 111.89 Glucose 88 Calcium 8.6 Total Bilirubin 0.3 AST 12 L ALT 27 Alkaline Phosphatase 121 H Total Protein 6.5 Albumin 3.2 L Urine Color Urine Clarity Urine pH Ur Specific [place] Urine Protein Urine Ketones Urine Blood Urine Nitrite Urine Bilirubin Urine Urobilinogen Ur Leukocyte Esterase Urine RBC Urine WBC Ur Epithelial Cells Urine Crystals Urine Bacteria Urine Casts Urine Mucus Ur Culture Indicated? Urine Glucose COVID-19 Source Nasal/Nares SARS-CoV-2 (PCR) Negative 08/24/22 08/23/22 08/23/22 00:05 22:23 22:23 WBC 9.56 RBC 4.32 L Hgb 13.4 L Hct 39.6 L MCV 92 MCH 31.0 MCHC 33.8 RDW 14.1 Plt Count 336 MPV 9.0 Immature Gran % 0.3 Neutrophils % 49.5 Lymphocytes % 28.2 Monocytes % 10.5 Eosinophils % 8.9 Basophils % 2.6 Nucleated RBC % 0.0 Absolute Neutrophils 4.73 Absolute Lymphocytes 2.70 Absolute Monocytes 1.00 H Absolute Eosinophils 0.85 H Absolute Basophils 0.25 H VBG Lactate 0.7 Sodium Potassium Chloride Carbon Dioxide Anion Gap BUN Creatinine Est GFR (CKD-EPI 2020) Glucose Calcium Total Bilirubin AST ALT Alkaline Phosphatase Total Protein Albumin Urine Color Yellow Urine Clarity Clear Urine pH 6.0 Ur Specific [place] 1.010 Urine Protein Negative Urine Ketones Negative Urine Blood Trace-lysed H Urine Nitrite Negative Urine Bilirubin Negative Urine Urobilinogen 0.2 Ur Leukocyte Esterase Small H Urine RBC 3-5 H Urine WBC 5-10 Ur Epithelial Cells Rare Urine Crystals Negative Urine Bacteria Few Urine Casts Negative Urine Mucus Negative Ur Culture Indicated? Yes Urine Glucose Negative COVID-19 Source SARS-CoV-2 (PCR) 08/23/22 22:23 WBC RBC Hgb Hct MCV MCH MCHC RDW Plt Count MPV Immature Gran % Neutrophils % Lymphocytes % Monocytes % Eosinophils % Basophils % Nucleated RBC % Absolute Neutrophils Absolute Lymphocytes Absolute Monocytes Absolute Eosinophils Absolute Basophils VBG Lactate Sodium 139 Potassium 3.7 Chloride 105 Carbon Dioxide 25.7 Anion Gap 8.3 BUN 12 Creatinine 0.7 Est GFR (CKD-EPI 2020) 106.80 Glucose 110 H Calcium 8.7 Total Bilirubin 0.3 AST 14 L ALT 29 Alkaline Phosphatase 126 H Total Protein 7.1 Albumin 3.5 Urine Color Urine Clarity Urine pH Ur Specific [place] Urine Protein Urine Ketones Urine Blood Urine Nitrite Urine Bilirubin Urine Urobilinogen Ur Leukocyte Esterase Urine RBC Urine WBC Ur Epithelial Cells Urine Crystals Urine Bacteria Urine Casts Urine Mucus Ur Culture Indicated? Urine Glucose COVID-19 Source SARS-CoV-2 (PCR) 08/24/22 00:05 Urine - Reflex from Urine Culture - Pending 08/23/22 23:08 Blood Blood Culture - Pending 08/23/22 22:23 Blood Blood Culture - Pending Preliminary micro results at discharge 08/24/22 00:05 Urine Culture - Pending Urine - Reflex from Ua 08/23/22 23:08 Blood Culture - Pending Blood 08/23/22 22:23 Blood Culture - Pending Blood [facility] All Active Problems Abdominal pain (Acute) Pain, foot (Acute) Nail dystrophy (Acute) Suspected sleep apnea (Acute) Diverticulitis of intestine with abscess (Acute) 07/31/22 DH - CT guided drain placement perivesicular/perisigmoid diverticular abscess 08/10/22 DH - Replacement of dislodged pelvic abscess catheter Erectile dysfunction (Chronic 03/04/17) Medical History Anxiety with depression Hyperlipidemia 09/2020 labs: adequate response, continue statin IFG (impaired fasting glucose) Insomnia disorder Metabolic syndrome Obesity Tobacco use disorder Surgical History Arthroplasty of knee (~2012) L excisional bx rgt upper arm (12/28/05) lipoma Family History Father Essential hypertension Anxiety Hyperlipidemia Maternal Aunt Neoplasm metastatic esophageal CA Mother Hyperlipidemia Stroke Sister Goiter S/p bx (benign) Breast cancer Social History Smoking/Tobacco Use Status: Current every day Tobacco Type: cigarettes Smoking packs per day: 1.00 Smoking cigarettes per day: 20.0 Years smoked: 30 Smoking pack-years: 30.00 Quit status: considering quitting Smoking risk assessment performed?: Yes Alcohol Intake: current Alcohol Intake frequency: holidays/special occasions only Drug use: Never Substance use type: does not use Adopted: No Caregiver/Support person: No Foster care: No Household members: family Housing: house Number of Children: 1 Communication Needs: Corrective Lenses Education Level: college Do you need help understanding health information?: Rarely 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 Pets and animals: Yes Pets and animals: dog(s) Sexually active: Yes Do you think of yourself as: straight/heterosexual Current gender identity: male What is your relationship status?: How often do you talk on the phone with friends or family?: twice per week How often do you get together with friends or relatives?: twice per week How often do you attend shinto or pentecostal services?: 1-3 times per year Do you belong to any clubs or organized social groups?: yes Panel score (0-1 are the most socially isolated patients): 2 What type of physical activity do you participate in: walking Duration: < 15 minutes/day Frequency: 3-4 times per week Anabela/Shinto: Jehovah'S Witness Special anabela needs: No Seatbelt use: always Helmet use: Yes Drive intox or ride 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 I started some Ditropan and Flomax to help with the bladder spasm. We will have him follow-up next week for planned bowel resection
--- NOTE | 2022-08-24 12:22 | HPE_ITS ---
Date of service: 08/24/22 Time of Service: 09:00 Assessment and Plan Assessment and plan (1) Abdominal pain: Status: Acute Assessment and plan: I think the pain he is experiencing is in the inflammation around his diverticulitis site, and perhaps some bladder spasms. We will repeat the hemoglobin today. I will try adding some antispasmodics to help with his pelvic discomfort. History of Present Illness History of Present Illness Chief Complaint: Pelvic pain Narrative: [place] is a 57-year-old male with a past medical history of perforated diverticulitis. He was treated with a percutaneous drain targeting an abscess adjacent to the sigmoid colon behind the bladder. He is done fairly well as an outpatient, but continues to drain feculent appearing material through his percutaneous drain site, and he also has some symptoms of pneumaturia suggesting the possibility of a colovesicular fistula. We are making plans for an exploratory laparotomy and definitive surgical repair. Unfortunately, he developed a significant amount of lower abdominal pelvic pain last night. Additionally, he has developed some bloody discharge with irrigation of his drain. It had some temporal relationship to moving his bladder. He denies any fevers chills, or other systemic signs of infection. He came to the emergency department, and underwent a CAT scan of the abdomen and pelvis. The CAT scan was generally reassuring as it looks pretty stable in character compared to his previous 1. He had a normal white blood cell count and no fevers. Therefore, we admitted him for a short period of observation to reassess his hemoglobin and repeat physical exam. Review of Systems Constitutional Constitutional: Reports as per HPI, Denies body ache(s), Reports difficulty sleeping and Denies night sweats Eyes Eyes: Reports system reviewed and no additional complaints, except as documented ENT Ears, Nose, Mouth, and Throat: Reports system reviewed and no additional complaints, except as documented Cardiovascular Cardiovascular: Reports system reviewed and no additional complaints, except as documented Respiratory Respiratory: Reports system reviewed and no additional complaints, except as documented Gastrointestinal Gastrointestinal: Reports abdominal pain, Reports cramping, Denies loose stools, Denies nausea and Denies vomiting Genitourinary Genitourinary: Denies difficulty urinating and Reports dysuria Musculoskeletal Musculoskeletal: Reports system reviewed and no additional complaints, except as documented Neurologic Neurologic: Reports system reviewed and no additional complaints, except as documented Psychiatric Psychiatric: Reports system reviewed and no additional complaints, except as documented Endocrine Endocrine: Reports system reviewed and no additional complaints, except as documented Hematologic/Lymphatic Hematologic/Lymphatic: Denies easy bleeding and Denies easy bruising PFSH All Active Problems Abdominal pain (Acute) Pain, foot (Acute) Nail dystrophy (Acute) Suspected sleep apnea (Acute) Diverticulitis of intestine with abscess (Acute) 07/31/22 DH - CT guided drain placement perivesicular/perisigmoid diverticular abscess 08/10/22 DH - Replacement of dislodged pelvic abscess catheter Erectile dysfunction (Chronic 03/04/17) Medical History Anxiety with depression Hyperlipidemia 09/2020 labs: adequate response, continue statin IFG (impaired fasting glucose) Insomnia disorder Metabolic syndrome Obesity Tobacco use disorder Surgical History Arthroplasty of knee (~2012) L excisional bx rgt upper arm (12/28/05) lipoma Family History Father Essential hypertension Anxiety Hyperlipidemia Maternal Aunt Neoplasm metastatic esophageal CA Mother Hyperlipidemia Stroke Sister Goiter S/p bx (benign) Breast cancer Social History Smoking/Tobacco Use Status: Current every day Tobacco Type: cigarettes Smoking packs per day: 1.00 Smoking cigarettes per day: 20.0 Years smoked: 30 Smoking pack-years: 30.00 Quit status: considering quitting Smoking risk assessment performed?: Yes Alcohol Intake: current Alcohol Intake frequency: holidays/special occasions only Drug use: Never Substance use type: does not use Adopted: No Caregiver/Support person: No Foster care: No Household members: family Housing: house Number of Children: 1 Communication Needs: Corrective Lenses Education Level: college Do you need help understanding health information?: Rarely current occupation: Retired [employer] Pets and animals: Yes Pets and animals: dog(s) Sexually active: Yes Do you think of yourself as: straight/heterosexual Current gender identity: male What is your relationship status?: How often do you talk on the phone with friends or family?: twice per week How often do you get together with friends or relatives?: twice per week How often do you attend orthodoxy or buddhism services?: 1-3 times per year Do you belong to any clubs or organized social groups?: yes Panel score (0-1 are the most socially isolated patients): 2 What type of physical activity do you participate in: walking Duration: < 15 minutes/day Frequency: 3-4 times per week Anabela/Rastafarian: Baptist Special anabela needs: No Seatbelt use: always Helmet use: Yes Drive intox or ride w/intox 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: No Water heater temp set <120 deg: Yes Working smoke detector in home: Yes Fire extinguisher in home: Yes Carbon monox detector in home: Yes Firearms in home: No Do you feel safe at home: Yes Do you feel safe in your relationship?: Yes Meds Allergies and Home Medications Allergies Allergy/AdvReac Type Severity Reaction Status Date / Time Sulfa (Sulfonamide AdvReac Severe Diarrhea Verified 08/23/22 22:16 Antibiotics) levofloxacin [From Levaquin] AdvReac Unknown Diarrhea Verified 08/23/22 22:16 Home Medications Medication Instructions Recorded Confirmed Type sildenafil (pulm.hypertension) 20 20 mg PO DAILY PRN sexual activity 09/01/18 08/23/22 Rx mg tablet #14 tab-caps buspirone 7.5 mg tablet 7.5 mg PO BID PRN anxiety #180 02/17/20 08/23/22 Rx tab-caps albuterol sulfate 90 mcg/actuation 1 - 2 puff inhalation Q4H PRN 09/28/20 08/23/22 Rx aerosol inhaler shortness of breath or wheezing #1 unit atorvastatin 40 mg tablet (Lipitor) 40 mg PO HS #90 tab-caps 09/27/21 08/23/22 Rx sertraline 50 mg tablet 50 mg PO DAILY #90 tab-caps 05/22/22 08/23/22 Rx tamsulosin 0.4 mg capsule (Flomax) 0.4 mg PO DAILY #30 caps 07/16/22 08/23/22 Rx bisacodyl 5 mg tablet,delayed 5 mg PO .COMPLEX #8 tabs 08/22/22 08/23/22 Rx release (Dulcolax (bisacodyl)) metronidazole 500 mg tablet 500 mg PO .COMPLEX #3 tabs 10/05/22 10/05/22 Rx neomycin 500 mg tablet 500 mg PO .COMPLEX #6 tabs 08/22/22 08/23/22 Rx ondansetron HCl 8 mg tablet 8 mg PO .COMPLEX #3 tabs 08/22/22 08/23/22 Rx oxybutynin chloride 5 mg 5 mg PO DAILY 10 days #10 tabs 08/24/22 Rx tablet,extended release 24 hr (Ditropan XL) oxycodone 5 mg tablet 5 mg PO Q8H PRN pain #12 tabs 08/24/22 Rx Exam Const General: cooperative, healthy appearing and comfortable Orientation: awake and oriented x3 Eyes General: appearance normal, both eyes and all related structures Conjunctivae: conjunctivae normal Sclera: sclerae normal Resp Effort & Inspection: normal respiratory effort and able to speak in complete s entences Cardio Jugular venous pressure: no JVD Rate: regular rate GI Inspection: non-distended Palpation: soft, no guarding, no hernias and nontender Auscultation: normal bowel sounds Other: There is some feculent drainage in the percutaneous drain, as well as some bloody appearing fluid Skin General skin exam: normal turgor Neuro General: patient alert, patient awake and patient oriented x3 Cognition: normal cognition Extrem Right lower extremity: no edema Left lower extremity: no edema Results Labs Result diagrams: 08/24/22 05:43 08/24/22 05:47 Labs: Laboratory Results - last 24 hr 08/23/22 08/23/22 08/23/22 22:23 22:23 22:23 WBC 9.56 RBC 4.32 L Hgb 13.4 L Hct 39.6 L MCV 92 MCH 31.0 MCHC 33.8 RDW 14.1 Plt Count 336 MPV 9.0 Immature Gran % 0.3 Neutrophils % 49.5 Lymphocytes % 28.2 Monocytes % 10.5 Eosinophils % 8.9 Basophils % 2.6 Nucleated RBC % 0.0 Absolute Neutrophils 4.73 Absolute Lymphocytes 2.70 Absolute Monocytes 1.00 H Absolute Eosinophils 0.85 H Absolute Basophils 0.25 H VBG Lactate 0.7 Sodium 139 Potassium 3.7 Chloride 105 Carbon Dioxide 25.7 Anion Gap 8.3 BUN 12 Creatinine 0.7 Est GFR (CKD-EPI 2020) 106.80 Glucose 110 H Calcium 8.7 Total Bilirubin 0.3 AST 14 L ALT 29 Alkaline Phosphatase 126 H Total Protein 7.1 Albumin 3.5 Urine Color Urine Clarity Urine pH Ur Specific [place] Urine Protein Urine Ketones Urine Blood Urine Nitrite Urine Bilirubin Urine Urobilinogen Ur Leukocyte Esterase Urine RBC Urine WBC Ur Epithelial Cells Urine Crystals Urine Bacteria Urine Casts Urine Mucus Ur Culture Indicated? Urine Glucose COVID-19 Source SARS-CoV-2 (PCR) 08/24/22 08/24/22 08/24/22 00:05 00:33 05:43 WBC 9.19 RBC 4.41 Hgb 13.8 Hct 41.2 MCV 93 MCH 31.3 MCHC 33.5 RDW 14.4 H Plt Count 327 MPV 9.4 Immature Gran % Neutrophils % Lymphocytes % Monocytes % Eosinophils % Basophils % Nucleated RBC % Absolute Neutrophils Absolute Lymphocytes Absolute Monocytes Absolute Eosinophils Absolute Basophils VBG Lactate Sodium Potassium Chloride Carbon Dioxide Anion Gap BUN Creatinine Est GFR (CKD-EPI 2020) Glucose Calcium Total Bilirubin AST ALT Alkaline Phosphatase Total Protein Albumin Urine Color Yellow Urine Clarity Clear Urine pH 6.0 Ur Specific [place] 1.010 Urine Protein Negative Urine Ketones Negative Urine Blood Trace-lysed H Urine Nitrite Negative Urine Bilirubin Negative Urine Urobilinogen 0.2 Ur Leukocyte Esterase Small H Urine RBC 3-5 H Urine WBC 5-10 Ur Epithelial Cells Rare Urine Crystals Negative Urine Bacteria Few Urine Casts Negative Urine Mucus Negative Ur Culture Indicated? Yes Urine Glucose Negative COVID-19 Source Nasal/Nares SARS-CoV-2 (PCR) Negative 08/24/22 05:47 WBC RBC Hgb Hct MCV MCH MCHC RDW Plt Count MPV Immature Gran % Neutrophils % Lymphocytes % Monocytes % Eosinophils % Basophils % Nucleated RBC % Absolute Neutrophils Absolute Lymphocytes Absolute Monocytes Absolute Eosinophils Absolute Basophils VBG Lactate Sodium 140 Potassium 4.0 Chloride 106 Carbon Dioxide 26.5 Anion Gap 7.5 BUN 10 Creatinine 0.6 L Est GFR (CKD-EPI 2020) 111.89 Glucose 88 Calcium 8.6 Total Bilirubin 0.3 AST 12 L ALT 27 Alkaline Phosphatase 121 H Total Protein 6.5 Albumin 3.2 L Urine Color Urine Clarity Urine pH Ur Specific [place] Urine Protein Urine Ketones Urine Blood Urine Nitrite Urine Bilirubin Urine Urobilinogen Ur Leukocyte Esterase Urine RBC Urine WBC Ur Epithelial Cells Urine Crystals Urine Bacteria Urine Casts Urine Mucus Ur Culture Indicated? Urine Glucose COVID-19 Source SARS-CoV-2 (PCR) Last Vital Signs Temp 97.3 F L 08/24/22 11:42 Pulse 64 08/24/22 11:42 Resp 22 08/24/22 11:42 BP 164/69 H 08/24/22 11:42 Pulse Ox 98 08/24/22 11:42
== END 2022-08-24 13:57 | disposition home or self-care (01) ==
LOC: ER 08-24 00:41 → MS 08-24 01:12
PROVIDERS: Admitting Provider Surgery; Emergency Provider Student in an Organized Health Care Education/Training Program; PCP Nurse Practitioner Family; Visit Provider Surgery
DX: K57.20 Diverticulitis of large intestine with perforation and abscess without bleeding (principal); R39.89 Other symptoms and signs involving the genitourinary system; E78.00 Pure hypercholesterolemia, unspecified; F41.8 Other specified anxiety disorders; E78.5 Hyperlipidemia, unspecified; G47.00 Insomnia, unspecified; E66.9 Obesity, unspecified; F17.210 Nicotine dependence, cigarettes, uncomplicated; E88.81 Metabolic syndrome and other insulin resistance; Z79.899 Other long term (current) drug therapy; Z20.822 Contact with and (suspected) exposure to COVID-19
CPT/HCPCS: 36415; 80053; 85027; 87040; 87635; 96361; 96374; 96375; 96376; 99285; 74177; 81003; 81015; 83605; 85025; 87086; G0378; J2270; J3490

== ENCOUNTER 2022-08-29 12:07 | Outpatient (CLI) | payer BC, SELFPAY ==
[2022-08-29 08:53] LABS: HCT 41.5 % (40.0-50.0); HGB 14.2 g/dL (13.5-17.5); MCH 31.3 pg (27.0-33.0); MCHC 34.2 % (32.0-36.0); MCV 92 fL (80-95); Platelet Count 286 10^3/uL (130-400); RBC 4.53 10^6/uL (4.36-5.78); RDW 14.5 % (11.8-14.1); RDW-SD 48.3 fL; WBC 10.71 10^3/uL (4.4-10.8)
== END 2022-08-29 12:08 | disposition home or self-care (01) ==
LOC: LBO 12:09
PROVIDERS: PCP Nurse Practitioner Family; Visit Provider Surgery
DX: K57.20 Diverticulitis of large intestine with perforation and abscess without bleeding (principal); Z01.818 Encounter for other preprocedural examination; Z01.812 Encounter for preprocedural laboratory examination
CPT/HCPCS: 36415; 85027; 86850; 86900; 86901

== ENCOUNTER 2022-08-31 08:39 | Inpatient (IN) | payer BC, SELFPAY ==
[2022-08-31] VITALS (9 sets, daily range): BP systolic 110–157; BP diastolic 59–85; PULSE 61–87; RESP 14–21; TEMP 36.1–36.5; O2SAT 94–98; BMI 39.0
[2022-08-31] MEDS: Lactated Ringers 1,000 ML 80 ML IV ×2 (08:23→16:42)
[2022-08-31 08:25] LABS: Source Nasal/Nares
--- NOTE | 2022-08-31 08:43 | ROE_ITS ---
Date of service: 08/31/22 Time of Service: 17:20 Operative Note Operative Note DATE OF PROCEDURE: 08/31/22 PRE-OP DIAGNOSIS: Perforated diverticulitis POST-OP DIAGNOSIS: same PROCEDURE: Exploratory laparotomy, sigmoid bowel resection, colorectal anastomosis SURGEON: Rambo Yan ASSISTING SURGEON: Hilda Agustin ANESTHESIA TYPE: Local By Surgeon, General LMA/ETT and Spinal Refer to Anesthesia Record ESTIMATED BLOOD LOSS: 125 PATHOLOGY: other (Sigmoid colon) COMPLICATIONS: None Patient was transported to: PACU Patient's condition: stable Procedure Description: After administration of spinal anesthesia, induction of general anesthesia, and intubation, I placed the patient in some gentle lithotomy positioning. Next, Stephanie Dsouza assisted with cystoscopy for insertion of ureteral stents. Details of his procedure can be found under his separate dictation. After this was complete, I prepped and draped the anterior abdominal wall. I made a midline longitudinal incision and dissected down to the fascia. The fascia was opened along the length of the incision, and I entered the peritoneal cavity directly. I then turned my attention to the pelvis, there were some dense adhesions of the sigmoid colon to the anterior abdominal wall and left lateral sidewall. Using combination of sharp and blunt dissection, I mobilized the sigmoid colon. Identified the area of the previous percutaneous drain. That was cut free. The drain was removed. There was thick inflammatory changes around the sigmoid colon. The discrete site of perforation was not clearly identified, as it was entangled within the dense inflammatory rind. Once I mobilized the sigmoid colon off of his anterior lateral adhesions, I pedicalized the sigmoid mesocolon. I identified a soft and healthy appearing portion of the proximal sigmoid colon. I divided it with a single fire of the MAURA stapler. Next, using the LigaSure device, I dissected and divided the sigmoid mesocolon distal to the involved segment. Again, I identified a suitable portion of the proximal rectum that was soft and healthy appearing. Here, I divided the sigmoid colon off of the proximal rectum with a single fire of an Endo MAURA radial tri stapler with a black load. I completed the division of the remaining sigmoid mesentery with the LigaSure. Once this was complete, I passed the sigmoid colon off as specimen. I then irrigated the pelvic floor, and examined the proximal and distal staple lines. They were healthy appearing. There was no bleeding off the mesentery. I then gently packed the pelvic floor with clean laparotomy pads. I then instilled methylene blue into the bladder until it was appropriately distended. I did not see any evidence of bladder perforation. I then returned to the bladder to fully drainage and removed the laparotomy sponges from the pelvis. Next, I created an anterior colotomy on the proximal side of the sigmoid colon. I delivered a 28 mm EEA anvil into the sigmoid colon, and affixed it in place with a pursestring stitch. Next, with the assistance of Dr. Agustin, we delivered the EEA stapler through the rectum. We advanced the spike under my direct vision in the pelvis. Next, I have fixed the anvil. Stapler was closed and I examined the anastomosis. It was not under any tension. There was good approximation of healthy tissue. Great care was taken to ensure that there was no significant twisting of the mesentery. The stapler was then fired and removed. Both anastomotic rings were healthy-appearing and completely intact. I then irrigated the anastomosis. I filled the pelvic floor with saline solution, and a rigid proctoscope was used to insufflate across the anastomosis. There were no bubbles. Given the quality of the anastomosis, minimal amount of inflammation, and the favorable hemodynamics Kingston in the operating room, I felt that it was unnecessary to perform a proximal diverting stoma. Therefore, we removed all of our sponges, irrigated the surgical site and inspected for hemostasis. Once this was complete, I closed the fascia with running 2-0 PDS stitches. The overlying skin and soft tissues were irrigated and approximated, and the skin was closed with surgical stapler. The Gonsalves catheter and ureteral stents were removed, and a standard Gonsalves catheter was replaced.
--- NOTE | 2022-08-31 08:59 | ANES.PREOP_ITS ---
General Info Date of Service Date Performed: 08/31/22 Height: 6 ft 1 in Weight: 134.2 kg Body Mass Index (BMI): 39.0 Surgical Procedure: Operation Date: 08/31/22 11:05 Proposed Procedure Side Surgeon p Exploratory Laparotomy Rambo Yan MD s Sigmoid Resection Colon possible Bladder Repair, Colostomy or Ileostomy Rambo Yan MD s Cystoscopy/Stent Placement During Surgery Bilateral Joel Dsouza MD Meds Allergies and Home Medications Allergies Allergy/AdvReac Type Severity Reaction Status Date / Time Sulfa (Sulfonamide AdvReac Severe Diarrhea Verified 08/31/22 07:47 Antibiotics) levofloxacin [From Levaquin] AdvReac Unknown Diarrhea Verified 08/31/22 07:47 Home Medication Medication Instructions Recorded sildenafil (pulm.hypertension) 20 20 mg PO DAILY PRN sexual activity 09/01/18 mg tablet #14 tab-caps buspirone 7.5 mg tablet 7.5 mg PO BID PRN anxiety #180 02/17/20 tab-caps albuterol sulfate 90 mcg/actuation 1 - 2 puff inhalation Q4H PRN 09/28/20 aerosol inhaler shortness of breath or wheezing #1 unit atorvastatin 40 mg tablet (Lipitor) 40 mg PO HS #90 tab-caps 09/27/21 sertraline 50 mg tablet 50 mg PO DAILY #90 tab-caps 05/22/22 tamsulosin 0.4 mg capsule (Flomax) 0.4 mg PO DAILY #30 caps 07/16/22 bisacodyl 5 mg tablet,delayed 5 mg PO .COMPLEX #8 tabs 08/22/22 release (Dulcolax (bisacodyl)) metronidazole 500 mg tablet 500 mg PO .COMPLEX #3 tabs 08/22/22 neomycin 500 mg tablet 500 mg PO .COMPLEX #6 tabs 08/22/22 ondansetron HCl 8 mg tablet 8 mg PO .COMPLEX #3 tabs 08/22/22 oxybutynin chloride 5 mg 5 mg PO DAILY 10 days #10 tabs 08/24/22 tablet,extended release 24 hr (Ditropan XL) oxycodone 5 mg tablet 5 mg PO Q8H PRN pain #12 tabs 08/24/22 Current Visit Medications: Current Medications Generic Name Dose Route Start Last Admin Trade Name Freq PRN Reason Stop Dose Admin Acetaminophen 1,000 mg 08/31/22 06:00 Acetaminophen 500 Mg Tab PO 08/31/22 23:59 PREOP [facility] Celecoxib 200 mg 08/31/22 06:00 Celecoxib 200 Mg Cap PO 08/31/22 23:59 PREOP [facility] Enoxaparin Sodium 40 mg 08/31/22 09:00 Enoxaparin 40 Mg/0.4 Ml Syr SC Q24H [facility] Gabapentin 600 mg 08/31/22 06:00 Gabapentin 300 Mg Cap PO 08/31/22 16:00 PREOP [facility] Ringer's Solution 1,000 mls @ 80 mls/hr 08/31/22 06:00 08/31/22 08:23 IV 08/31/22 23:59 80 mls/hr INFUSION [facility] Administration Cefazolin Sodium/Dextrose 2 gm in 50 mls @ 100 mls/hr 08/31/22 06:00 Ancef Duplex IVPB 08/31/22 23:59 PREOP [facility] Metronidazole 500 mg in 100 mls @ 100 mls/hr 08/31/22 06:00 Flagyl IVPB 08/31/22 16:00 PREOP [facility] Sodium Chloride 500 mls @ 0 mls/hr 08/31/22 08:39 Saline 500ml Bag IV PRN PRN As Directed Acetaminophen 1,000 mg in 100 mls @ 400 mls/hr 08/31/22 08:45 Ofirmev IVPB Q6H [facility] IV Miscellaneous Supplies 1 each 08/31/22 06:00 Iv Access IV 08/31/22 23:59 DIRECTED [facility] IV Miscellaneous Supplies 1 each 08/31/22 08:45 Iv Access IV DIRECTED [facility] Morphine Sulfate 2 mg 08/31/22 08:39 Morphine 2 Mg/Ml Syr IVP Q1H PRN PRN Ondansetron HCl 4 mg 08/31/22 08:39 Ondansetron 4 Mg/2 Ml Vial IVP Q4H PRN PRN Sodium Chloride 0 ml 08/31/22 06:00 Normal Saline Flush 10 Ml Syr IV 08/31/22 23:59 PRN PRN Sodium Chloride 0 ml 08/31/22 06:00 Normal Saline 10 Ml Vial IJ 08/31/22 23:59 DIRECTED PRN Sodium Chloride 0 ml 08/31/22 08:39 Normal Saline Flush 10 Ml Syr IVP PRN PRN Sterile Water 0 ml 08/31/22 06:00 Water,Injection,Sterile 10 Ml Vial IJ 08/31/22 23:59 DIRECTED PRN PFSH Active Problems Active Problems: Problem Status Onset Code Erectile dysfunction 03/04/17 N52.9 Diverticulitis of intestine with abscess K57.80 Suspected sleep apnea R29.818 Nail dystrophy L60.3 Pain, foot M79.673 Abdominal pain R10.9 Medical History Medical History Anxiety with depression Diverticulitis Hyperlipidemia 09/2020 labs: adequate response, continue statin IFG (impaired fasting glucose) Insomnia disorder Metabolic syndrome Obesity Perforated diverticulum Tobacco use disorder Surgical History Surgical History (Updated 08/31/22 @ 07:47 by Arianna Stephens RN) Arthroplasty of knee (~2012) L excisional bx rgt upper arm (12/28/05) lipoma Hx of colonoscopy Tobacco Smoking/Tobacco Use Status: Current every day Tobacco Type: cigarettes Smoking packs per day: 1.00 Smoking cigarettes per day: 20.0 Years smoked: 30 Smoking pack-years: 30.00 Alcohol Alcohol Intake: current Alcohol intake frequency: holidays/special occasions only Alcohol type: beer and hard liquor Substance Use Substance use: Never Substance use type: does not use Vital Signs and Lab Results Vital Signs Most Recent Vital Signs in EMR: Most Recent Vital Signs Temp Pulse Resp BP Pulse Ox 36.2 C L 61 18 110/61 96 08/31/22 07:37 08/31/22 07:37 08/31/22 07:37 08/31/22 07:37 08/31/22 07:37 Lab Results Blood Type / Crossmatch: Patient ABO/Rh A Negative 08/29/22 Antibody Screen NEGATIVE 08/29/22 Complete Blood Count: White Blood Count 10.71 10^3/uL (4.4-10.8) 08/29/22 08:49 Red Blood Count 4.53 10^6/uL (4.36-5.78) 08/29/22 08:49 Hemoglobin 14.2 g/dL (13.5-17.5) 08/29/22 08:49 Hematocrit 41.5 % (40.0-50.0) 08/29/22 08:49 Platelet Count 286 10^3/uL (130-400) 08/29/22 08:49 Venous Blood Lactate 0.7 mmol/L (0.6-1.4) 08/23/22 22:23 Complete Metabolic Panel: Sodium 140 mmol/L (136-145) 08/24/22 05:47 Potassium 4.0 mmol/L (3.5-5.1) 08/24/22 05:47 Chloride 106 mmol/L (98-107) 08/24/22 05:47 Carbon Dioxide 26.5 mmol/L (21.0-32.0) 08/24/22 05:47 BUN 10 mg/dL (7-18) 08/24/22 05:47 Creatinine 0.6 mg/dL (0.70-1.30) L 08/24/22 05:47 Est GFR (CKD-EPI 2020) 111.89 (mL/min/1.73m2) 08/24/22 05:47 Magnesium 1.9 mg/dL (1.8-2.4) 08/14/22 11:30 Calcium 8.6 mg/dL (8.5-10.1) 08/24/22 05:47 Albumin 3.2 g/dL (3.4-5.0) L 08/24/22 05:47 Glucose 88 mg/dL (74-106) 08/24/22 05:47 C-Reactive Protein 0.67 mg/dL (0.0-0.3) H 08/14/22 11:30 Liver Function Panel: Alanine Aminotransferase (ALT/SGPT) 27 U/L (16-63) 08/24/22 05: 47 Aspartate Amino Transf (AST/SGOT) 12 U/L (15-37) L 08/24/22 05: 47 Coagulation Panel: No Data to Display Cardiac Panel: No Data to Display Arterial Blood Gas: No Data to Display Venous Blood Gas: No Data to Display Pancreas Panel: No Data to Display Thyroid Panel: No Data to Display Infectious Disease: Coronavirus (COVID-19)(PCR) Negative (Negative) 08/24/22 00:33 Coronavirus 2019 Source Nasal/Nares 08/31/22 07:56 Blood Cultures: No Data to Display Toxicology Panel: No Data to Display Anesthesia Assessment and Plan Anesthesia History Personal History: No History of Anesthesia Complications Family History: No Family History of Anesthesia Complications Exercise Tolerance Exercise Tolerance: Metabolic Equivalents>4 Pertinent Negatives Pertinent Negatives: No Symptoms of GERD, No Major Cardiovascular Symptoms or Complaints, No Major Pulmonary Symptoms or Complaints and No History of CVA/TIA Cardiac & Pulmonary Exam Cardiac Exam: Normal S1/S2 Heart Sounds Pulmonary Exam: Clear Bilateral Breath Sounds Implantable Cardiac Device Does patient have a Pacemaker or an ICD?: No Airway Exam Known Difficult Airway: No Mallampati Class: 2 Mouth Opening: Normal (> 3cm) Thyromental Distance: Greater than 3 cm Neck Range of Motion: Full ROM Neck Circumference: Normal Teeth Condition: Normal Dentition ASA Classification ASA Score: ASA 3 Emergency Case?: No NPO Status NPO Status: NPO Clears >2 hours, Solids >8 hours Anesthesia Plan Resuscitation Status: Full Code Anesthesia Technique: General Anesthesia Airway Planned: Endotracheal Tube Pain Management: Surgeon and patient request nerve block (epidural for postop pain) Monitors Used: Standard Monitors
[2022-08-31] MEDS: Celecoxib 200 MG CAP PO (09:00)
[2022-08-31] MEDS: Gabapentin 300 MG CAP 600 MG PO (09:00)
[2022-08-31] MEDS: Acetaminophen 500 MG TAB 1000 MG PO (09:00)
[2022-08-31] MEDS: metroNIDAZOLE 500 MG/100 ML BAG 100 MG IVPB (10:55)
[2022-08-31] MEDS: ceFAZolin 2 GM/50 ML BAG IVPB (14:37)
[2022-08-31] MEDS: Lidocaine 2% Jelly 6 ML SYR (14:53)
[2022-08-31] MEDS: Bupivacaine 0.25% Pres-Free W/EPI 30 ML VIAL (15:13)
--- NOTE | 2022-08-31 15:23 | W.PM.OP ---
Date of service: 08/31/22 Time of Service: 15:23 Operative Note Operative Note DATE OF PROCEDURE: 08/31/22 PRE-OP DIAGNOSIS: Diverticulitis PROCEDURE: Cystoscopy, insert bilateral ureteral stents SURGEON: Joel Dsouza ANESTHESIA TYPE: General LMA/ETT Refer to Anesthesia Record ESTIMATED BLOOD LOSS: 5 PATHOLOGY: none sent COMPLICATIONS: None Patient was transported to: no change Patient's condition: stable Implants: Bilateral 5 [place] ureteral catheters 16 [place] Gonsalves catheter Indications: This is a 57-year-old gentleman who has a history of diverticulitis and a diverticular abscess. He has had a percutaneous drain placed along with antibiotics. He presents now for colon resection and possible bladder repair. I have been asked to place ureteral stents to help identify the ureters intraoperatively Findings: Normal ureteral orifices Procedure Description: The patient was brought to the operating room on 08/31/2022. He had received preoperative antibiotics. After successful induction of general anesthesia, he was placed in the dorsal lithotomy position. His genitalia was prepped and draped. 2% Xylocaine jelly was instilled into the urethra to act as a local anesthetic. A 22 [place] rigid cystoscope was passed through the urethra into the bladder. The bladder was inspected with a 30 degree lens. Initially, we identified the right ureteral orifice. The orifice appeared normal. We cannulated the orifice with a 5 [place] ureteral catheter and advanced the catheter until resistance was met. We then removed the cystoscope leaving the ureteral catheter in place. We then replaced the cystoscope and identified the left ureteral orifice. A second 5 [place] catheter was advanced through the scope and into the left ureteral orifice. Again the ureteral catheter was advanced until resistance was met. We labeled each of the ureteral catheters based on their laterality. We then passed a 16 [place] Gonsalves catheter through the urethra into the bladder alongside the ureteral catheters. Gonsalves catheter balloon was inflated with 10 cc of sterile water. The ureteral catheters were brought into the lumen of the Gonsalves and all were hooked to gravity drainage The patient was then repositioned prepped and draped for the general surgery portion of his procedure.
--- NOTE | 2022-08-31 16:12 | W.ANESNEU ---
Epidural/Spinal Catheter Date Performed: 08/31/22 Procedure Start: 14:02 Procedure Stop: 14:25 Requesting Provider: Rambo Yan Procedure Location: Operating Room Reason Performed: Postoperative Analgesia Standard Monitors Applied: Blood Pressure and SpO2 Patient Position: Sitting Sedation Given (Indicate Dose Given): Versed IV Dose:: 2 mg Patient Mental Status: Sedate with meaningful communication Sterility: Hand Hygiene, Surgical Cap, Surgical Mask, Sterile Gloves, Sterile Drape/Sheet and Chlorhexidine Procedure Location: L1-L2 Interspace Epidural Needle: Tuohy 17 Guage Needle Length: 3.5 Inch Needle Approach: Midline Epidural Procedure: Skin Prepped, Sterile Drape Placed, 1% Lidocaine to skin and subcutaneous tissue with 25G needle, Tuohy Needle placed, JOVANNI to Saline Used, Catheter Met Resistance, Tuohy and Catheter Removed, Negative Heme and Negative CSF Flow Catheter Placed?: Catheter Not Placed Paresthesia: None Ultrasound: Used to aria site Number of Attempts (See previous attempts in note section): 2 Procedure Tolerated: Patient tolerated well and Complications Encountered Procedure Outcome: Unsuccessful Procedure Comment:: See Anesthesia record for epidural narcotics placed. Multiple attempts with good JOVANNI. Unable to thread catheter. Decided to abort after placement of epidural narcotics. Discussed with patient and surgeons. Performed By: Robb Marti
[2022-08-31 16:22] LABS: COVID-19 PCR Negative (Negative)
--- NOTE | 2022-08-31 17:01 | BOWEL_PTH ---
PATIENT: Kingston Alex III LOC: U#:[id number] AGE/SX: 57/M ROOM: [id number] RE08/31/[address]: Rambo Yan MD : 1965 BED: A DIS: 09/06/2022 SPEC #: [id number] RECD: 09/03/22 12:26 STATUS: ESTHER REQ #: [id number] CARLOS: 08/31/22 17:[address]: Rambo Yan DEPT: Surgical Specimen RECD BY: Maria Alejandra Mercado ENTERED: 09/03/22 12:26 SP TYPE: Bowel OTHR DR: Maribel Carpenter, JOAQUIN Tissues: 1 - BOWEL RESECTION(OTHER) Procedures: GROSS AND MICRO LEVEL 5 Comments: [id number]
[2022-08-31] MEDS: fentaNYL 100 MCG/2 ML VIAL IVP ×2 (17:21→17:35)
--- NOTE | 2022-08-31 17:47 | W.ANESPOSTOP ---
Postoperative Evaluation Date, Time and Location Date Performed: 08/31/22 Time Performed: 17:47 Patient Location: PACU Vital Signs Most Recent Imported Vital Signs: Most Recent Vital Signs Temp Pulse Resp BP Pulse Ox 36.5 C 84 17 134/80 94 08/31/22 17:38 08/31/22 17:38 08/31/22 17:38 08/31/22 17:38 08/31/22 17:38 Pain Score Most Recent Pain Score: Most Recent Pain Score Pain Level 7 08/31/22 17:38 Assessment Mental Status: Awake (Alert & Oriented to Patient Baseline) Airway and Respiratory Function: Patent airway with normal (patient baseline) respiratory exam Cardiovascular Function: Hemodynamically Stable Hydration Status: Adequately Hydrated Nausea & Vomiting: No Nausea or Vomiting Pain: Pain is tolerable per patient Peripheral Nerve Block: Patient did not receive a nerve block Postoperative Comments:: ready for transfer to floor
[2022-08-31] MEDS: Enoxaparin 40 MG/0.4 ML SYR SC (18:31)
[2022-08-31] MEDS: Normal Saline Flush 10 ML SYR IVP ×3 (18:31→23:27)
[2022-08-31] MEDS: MORPHine 4 MG/ML SYR IM/IV ×2 (18:32→23:27)
[2022-08-31] MEDS: ACETAMINOPHEN 1,000 MG/100 ML BTL 400 MG IVPB (18:32)
[2022-08-31] MEDS: Ketorolac 30 MG/ML VIAL IVP (19:44)
[2022-08-31] MEDS: Lactated Ringers 1,000 ML 75 ML IV (21:06)
[2022-08-31] MEDS: Atorvastatin 40 MG TAB PO (22:06)
[2022-09-01 00:40] VITALS: BP 157/77; PULSE 89; RESP 18; TEMP 36.9; O2SAT 92
[2022-09-01] MEDS: ACETAMINOPHEN 1,000 MG/100 ML BTL 400 MG IVPB ×4 (03:40→21:31)
[2022-09-01 07:11] LABS: Abs Immature Grans 0.04 10^3/uL (0.0-0.06); Absolute Basophil Count 0.08 10^3/uL (0.0-0.2); Absolute Eosinophil Count 0.04 10^3/uL (0.0-0.7); Absolute Lymphocyte Count 1.87 10^3/uL (1.2-3.4); Absolute Monocyte Count 1.52 10^3/uL (0.1-0.8); Absolute Neutrophil Count 10.11 10^3/uL (1.2-6.7); Basophils % 0.6; Eosinophils % 0.3; HCT 40.1 % (40.0-50.0); HGB 13.4 g/dL (13.5-17.5); Immature Grans % 0.3; Lymphocytes % 13.7; MCH 30.7 pg (27.0-33.0); MCHC 33.4 % (32.0-36.0); MCV 92 fL (80-95); MPV 9.5 fL (8.0-11.0); Monocytes % 11.1; Platelet Count 275 10^3/uL (130-400); RBC 4.36 10^6/uL (4.36-5.78); RDW 14.3 % (11.8-14.1); RDW-SD 48.5 fL; WBC 13.66 10^3/uL (4.4-10.8)
[2022-09-01 07:25] VITALS: BP 118/72; PULSE 74; RESP 16; TEMP 36.6; O2SAT 94
[2022-09-01 07:25] LABS: BUN 14 mg/dL (7-18); CREATININE 0.8 mg/dL (0.70-1.30); Calcium 8.6 mg/dL (8.5-10.1); Chloride 104 mmol/L (98-107); Estimated GFR 102.58 (mL/min/1.73m2); Glucose 94 mg/dL (74-106); Potassium 3.9 mmol/L (3.5-5.1); Sodium 139 mmol/L (136-145)
[2022-09-01] MEDS: Oxybutynin-CR 5 MG TABCR PO (07:34)
[2022-09-01] MEDS: Tamsulosin 0.4 MG CAPCR PO (07:34)
[2022-09-01] MEDS: Ketorolac 30 MG/ML VIAL IVP ×3 (07:35→21:31)
[2022-09-01] MEDS: Normal Saline Flush 10 ML SYR IVP ×5 (07:36→21:33)
[2022-09-01 07:48] LABS: Diff Comment Agrees w/ Instrument; RBC Morphology Normal
[2022-09-01] MEDS: MORPHine 4 MG/ML SYR IM/IV ×4 (08:20→21:33)
[2022-09-01] MEDS: Normal Saline 500 ML 30 ML IV (09:51)
--- NOTE | 2022-09-01 10:43 | INITIAL_ITS ---
- If Service Date Differs Date of service: 09/01/22 Time of Service: 10:43 Care Management Initial Assess REASON FOR HOSPITALIZATION:: Diverticulitis PAST MEDICAL HISTORY/PAST SURGICAL HISTORY:: Medical History . Anxiety with depression. Diverticulitis. Hyperlipidemia. 09/2020 labs: adequate response, continue statin. IFG (impaired fasting glucose). Insomnia disorder. Metabolic syndrome. Obesity. Perforated diverticulum. Tobacco use disorder. Surgical History. Surgical History (Updated 08/31/22 @ 07:47 by Arianna Stephens, RN). Arthroplasty of knee (~2012). L. excisional bx rgt upper arm (12/28/05). lipoma. Hx of colonoscopy PREVIOUS FUNCTIONAL STATUS/SOCIAL/FAMILY SUPPORTS:: Kingston lives in [facility] with his Michelle Lee. He drives and is independent at baseline. 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 CURRENT FUNCTIONAL STATUS:: Kingston was lying in bed with the HOB elevated when CM met with him. He is alert, oriented and easy to engage in conversation. He rec'd a call from his [employer] yesterday. They wanted to make sure that he receives Home Health RN services on discharged (CM noted). ADVANCE DIRECTIVES:: None on file, pt reports his HCA is his sister Augusta Waters. Has patient been provided with info about the portal/API?: Yes Did the patient sign up for the portal?: Yes (Prior to admission) CODE STATUS:: Full Code INSURANCE COVERAGE / FINANCIAL ISSUES:: BC/BS of [place] CURRENT HOME/COMMUNITY SERVICES/EQUIPMENT:: None PRIMARY CARE PHYSICIAN:: Maribel Elizabeth POTENTIAL DISCHARGE NEEDS:: [facility] RN PATIENT/FAMILY EDUCATION NEEDS:: Review discharge instructions, limitations, medications and plan to follow up with community providers. Discuss ask me three. TRANSPORTATION:: Via private vehicle with Michelle Lee. PLAN:: Anticipate Kingston will discharge home with New [facility] RN services when medically ready. He will follow up with community providers and discharge plan of care as prescribed. Kingston uses [facility] in [facility] if new RX's are needed.
[2022-09-01] MEDS: Lactated Ringers 1,000 ML 75 ML IV (11:34)
--- NOTE | 2022-09-01 12:32 | W.PM.PROGNOT ---
Date of Service Date of service: 09/01/22 Time of Service: 12:32 Subjective Subjective Interval history since last seen: Mr. Alex is doing well. Pain is doing OK unless he moves. Needs two people to assist when getting up due to pain. NO Fevers No N/V Exam Const General: cooperative and comfortable Orientation: alert and oriented x3 HENMT Head: normocephalic and atraumatic Resp Effort & Inspection: normal respiratory effort Auscultation: clear to auscultation bilaterally Cardio Rate: regular rate Rhythm: regular rhythm GI Inspection: other (THEA is in place. half the dressing is staurated with old bloody discharge.) Palpation: soft and tender (appropriately tender along the incision) Auscultation: hypoactive bowel sounds Objective Last Vital Signs Temp 97.9 F 09/01/22 07:25 Pulse 74 09/01/22 07:25 Resp 16 09/01/22 07:25 BP 118/72 09/01/22 07:25 Pulse Ox 94 09/01/22 07:25 Laboratory Results - last 24 hr 08/31/22 09/01/22 09/01/22 07:56 06:30 06:30 WBC 13.66 H RBC 4.36 Hgb 13.4 L Hct 40.1 MCV 92 MCH 30.7 MCHC 33.4 RDW 14.3 H Plt Count 275 MPV 9.5 Immature Gran % 0.3 Neutrophils % 74.0 Lymphocytes % 13.7 Monocytes % 11.1 Eosinophils % 0.3 Basophils % 0.6 Nucleated RBC % 0.0 Absolute Neutrophils 10.11 H Absolute Lymphocytes 1.87 Absolute Monocytes 1.52 H Absolute Eosinophils 0.04 Absolute Basophils 0.08 RBC Morphology Normal Sodium 139 Potassium 3.9 Chloride 104 Carbon Dioxide 25.0 Anion Gap 10.0 BUN 14 Creatinine 0.8 Est GFR (CKD-EPI 2020) 102.58 Glucose 94 Calcium 8.6 SARS-CoV-2 (PCR) Negative
--- NOTE | 2022-09-01 14:22 | NUR.NOTE ---
Nursing Note: This RN has been working with Elizabeth Fraser LPN today and agrees with all care and documentation of care.
[2022-09-01 15:28] VITALS: BP 117/68; PULSE 72; RESP 16; TEMP 37; O2SAT 94
[2022-09-01] MEDS: Enoxaparin 40 MG/0.4 ML SYR SC (18:02)
[2022-09-01 18:34] LABS: Abs Immature Grans 0.04 10^3/uL (0.0-0.06); Absolute Basophil Count 0.14 10^3/uL (0.0-0.2); Absolute Eosinophil Count 0.28 10^3/uL (0.0-0.7); Absolute Lymphocyte Count 2.79 10^3/uL (1.2-3.4); Absolute Monocyte Count 1.09 10^3/uL (0.1-0.8); Basophils % 1.3; Eosinophils % 2.6; HCT 37.1 % (40.0-50.0); HGB 12.6 g/dL (13.5-17.5); Immature Grans % 0.4; Lymphocytes % 25.8; MCV 91 fL (80-95); MPV 9.1 fL (8.0-11.0); Monocytes % 10.1; Neutrophils % 59.8; Platelet Count 254 10^3/uL (130-400); RBC 4.06 10^6/uL (4.36-5.78); RDW 14.6 % (11.8-14.1); RDW-SD 49.2 fL; WBC 10.81 10^3/uL (4.4-10.8)
[2022-09-01 18:35] LABS: Absolute Neutrophil Count 6.46 10^3/uL (1.2-6.7)
[2022-09-01 18:39] LABS: Anion Gap 8.7 mmol/L (3-11); BUN 21 mg/dL (7-18); CO2 27.3 mmol/L (21.0-32.0); CREATININE 0.7 mg/dL (0.70-1.30); Calcium 8.5 mg/dL (8.5-10.1); Chloride 105 mmol/L (98-107); Glucose 88 mg/dL (74-106); Potassium 3.6 mmol/L (3.5-5.1); Sodium 141 mmol/L (136-145)
[2022-09-01] MEDS: Atorvastatin 40 MG TAB PO (21:32)
[2022-09-01] MEDS: busPIRone 15 MG TAB 7.5 MG PO (21:32)
[2022-09-01 23:57] VITALS: BP 113/71; PULSE 70; RESP 18; TEMP 36.7; O2SAT 91
[2022-09-02] MEDS: Lactated Ringers 1,000 ML 75 ML IV ×2 (02:12→13:45)
[2022-09-02] MEDS: ACETAMINOPHEN 1,000 MG/100 ML BTL 400 MG IVPB ×4 (03:29→21:15)
[2022-09-02] MEDS: Tamsulosin 0.4 MG CAPCR PO (07:34)
[2022-09-02] MEDS: Oxybutynin-CR 5 MG TABCR PO (07:34)
[2022-09-02 08:46] VITALS: BP 121/59; PULSE 63; RESP 18; TEMP 36.3; O2SAT 94
[2022-09-02] MEDS: Normal Saline Flush 10 ML SYR IVP ×3 (09:45→13:45)
[2022-09-02] MEDS: Ketorolac 30 MG/ML VIAL IVP (09:45)
--- NOTE | 2022-09-02 11:27 | W.PM.PROGNOT ---
Date of Service Date of service: 09/02/22 Time of Service: 11:27 Assessment and Plan Assessment and plan (1) S/P exploratory laparotomy: Status: Acute Assessment and plan: POD#2 sigmoid colectomy for diverituclar Dx. Primary anastomosis and no diverision -no fistula noted at the time of surgery. -He still is having the 600 cc out of the NG tube. We are going to continue with NG tube decompression. This can be clamped to walk. He should be up walking 3 times a day, with assist. He may need a walker in this interim. -He does have some blood in the NG tube and a little more bleeding from the incision that I would like to see. Going to stop the Toradol and hold the Lovenox for 24 hours. His hemoglobin was good today. We will check it again tomorrow. -I am going to start him on IV Protonix as well -Continue incentive strep spirometry and encourage ambulation -His pain seems to be well controlled. -Hopefully can DC Gonsalves in a.m. (2) S/P colectomy: Status: Acute (3) Acute on chronic blood loss anemia: Status: Acute (4) Diverticulitis of intestine with abscess: Status: Acute (5) Hyperlipidemia: Qualifiers: Hyperlipidemia type: unspecified Qualified Code(s): E78.5 - Hyperlipidemia, unspecified (6) IFG (impaired fasting glucose): (7) Metabolic syndrome: (8) Tobacco use disorder: Subjective Subjective Interval history since last seen: Pt is doing well. no headaches. No CP or SOB. no productive cough. no dysuria. no leg pain or swelling. He did have a bowel movement earlier today that did have some clots in place. He has had about 600 cc out of his NG tube so far today. It does appear to be coffee-ground in color. He has bowel sounds. But they are little high-pitched. I think he has some swelling at the anastomosis and nothing is quite going through yet. He is not passing any gas this afternoon. I think he just had distal emptying of the colon. He is complaining of some mild to moderate abdominal wall pain and spasming. Exam Narrative Exam Narrative: PHYSICAL EXAM GENERAL APPEARANCE: Alert, healthy appearance, oriented, in no acute distress SKIN: No rashes.? No breakdown HYDRATION: Well hydrated HEAD, EYES, EARS, NECK, THROAT: Head is normocephalic, pupils equal, round, reactive to light and accommodation, ocular movement intact, sclera clear and no jaundice. ?Dentition intact. No sore throat.? No jaw pain. No thrush NGT: Material appears to be coffee-ground's NECK: Supple, Trachea midline. No JVD. LUNGS: normal respiration/nl chest excursion. ?Clear to auscultation B/l no R/R/W ?HEART: Regular rate and rhythm, EXTREMITY: No edema or cyanosis? no leg pain, redness, swelling.? No IV infiltration ABDOMEN: Obese and soft. He is good bowel sounds on the right side of the abdomen but minimal on the left side of the abdomen. Normal bowel sound. PICOs is saturated with blood. NEURO: no focal neuro deficits. Objective Last Vital Signs Temp 36.3 C L 09/02/22 08:46 Pulse 63 09/02/22 08:46 Resp 18 09/02/22 08:46 BP 121/59 L 09/02/22 08:46 Pulse Ox 94 09/02/22 08:46 Laboratory Results - last 24 hr 09/01/22 09/01/22 18:20 18:20 WBC 10.81 H RBC 4.06 L Hgb 12.6 L Hct 37.1 L MCV 91 MCH 31.0 MCHC 34.0 RDW 14.6 H Plt Count 254 MPV 9.1 Immature Gran % 0.4 Neutrophils % 59.8 Lymphocytes % 25.8 Monocytes % 10.1 Eosinophils % 2.6 Basophils % 1.3 Nucleated RBC % 0.0 Absolute Neutrophils 6.46 Absolute Lymphocytes 2.79 Absolute Monocytes 1.09 H Absolute Eosinophils 0.28 Absolute Basophils 0.14 Sodium 141 Potassium 3.6 Chloride 105 Carbon Dioxide 27.3 Anion Gap 8.7 BUN 21 H Creatinine 0.7 Est GFR (CKD-EPI 2020) 106.80 Glucose 88 Calcium 8.5
[2022-09-02 11:54] VITALS: BP 137/68; PULSE 72; RESP 16; TEMP 36.5; O2SAT 91
[2022-09-02 12:45] VITALS: BP 127/78; PULSE 73; RESP 16; TEMP 36.4; O2SAT 95
[2022-09-02] MEDS: MORPHine 4 MG/ML SYR IM/IV ×2 (13:27→18:46)
[2022-09-02] MEDS: Pantoprazole 40 MG VIAL IVP (13:44)
[2022-09-02] MEDS: busPIRone 15 MG TAB 7.5 MG PO ×2 (15:58→21:16)
[2022-09-02 19:51] VITALS: BP 155/77; PULSE 82; RESP 18; TEMP 36.4; O2SAT 94
[2022-09-02] MEDS: Atorvastatin 40 MG TAB PO (21:16)
[2022-09-03] MEDS: Lactated Ringers 1,000 ML 75 ML IV ×2 (01:27→17:20)
[2022-09-03] MEDS: MORPHine 4 MG/ML SYR IM/IV ×4 (02:21→21:08)
[2022-09-03] MEDS: Normal Saline Flush 10 ML SYR IVP ×5 (02:22→21:08)
[2022-09-03] MEDS: ACETAMINOPHEN 1,000 MG/100 ML BTL 400 MG IVPB ×4 (03:27→21:05)
--- NOTE | 2022-09-03 04:45 | W.PM.PROGNOT ---
Date of Service Date of service: 09/03/22 Time of Service: 04:46 Assessment and Plan Assessment and plan (1) S/P exploratory laparotomy: Status: Acute Assessment and plan: I think it is fine to pull Gonsalves out tomorrow morning. We will leave the nasogastric tube to suction overnight, and start a clamping trial in the morning Subjective Subjective Interval history since last seen: He has been up and around and ambulating in the hallway. He is hungry today. He is passing gas and having bowel movements. He says his pain is pretty well controlled. Exam GI Inspection: non-distended Palpation: soft, no guarding and tender Percussion: tympanic to percussion Auscultation: normal bowel sounds Objective Last Vital Signs Temp 97.5 F L 09/02/22 19:51 Pulse 82 09/02/22 19:51 Resp 18 09/02/22 19:51 BP 155/77 H 09/02/22 19:51 Pulse Ox 94 09/02/22 19:51
[2022-09-03 07:12] LABS: Abs Immature Grans 0.03 10^3/uL (0.0-0.06); Absolute Basophil Count 0.16 10^3/uL (0.0-0.2); Absolute Eosinophil Count 0.77 10^3/uL (0.0-0.7); Absolute Lymphocyte Count 1.69 10^3/uL (1.2-3.4); Absolute Monocyte Count 0.75 10^3/uL (0.1-0.8); Absolute Neutrophil Count 6.15 10^3/uL (1.2-6.7); Basophils % 1.7; Eosinophils % 8.1; HCT 35.7 % (40.0-50.0); HGB 12.2 g/dL (13.5-17.5); Immature Grans % 0.3; Lymphocytes % 17.7; MCH 30.8 pg (27.0-33.0); MCHC 34.2 % (32.0-36.0); MCV 90 fL (80-95); MPV 9.2 fL (8.0-11.0); Monocytes % 7.9; Neutrophils % 64.3; Platelet Count 248 10^3/uL (130-400); RBC 3.96 10^6/uL (4.36-5.78); RDW 13.8 % (11.8-14.1); RDW-SD 45.3 fL; WBC 9.55 10^3/uL (4.4-10.8)
[2022-09-03 07:41] LABS: Anion Gap 11.9 mmol/L (3-11); BUN 15 mg/dL (7-18); CO2 24.1 mmol/L (21.0-32.0); CREATININE 0.5 mg/dL (0.70-1.30); Calcium 8.4 mg/dL (8.5-10.1); Chloride 105 mmol/L (98-107); Estimated GFR 118.23 (mL/min/1.73m2); Glucose 72 mg/dL (74-106); Potassium 3.4 mmol/L (3.5-5.1); Sodium 141 mmol/L (136-145)
[2022-09-03 07:42] VITALS: BP 127/79; PULSE 66; RESP 18; TEMP 36.5; O2SAT 92
[2022-09-03 08:11] LABS: Ferritin 417 ng/mL (26-388); Folate 14.8 ng/mL (8.6-20.0); Magnesium 1.7 mg/dL (1.8-2.4); Vitamin B12 380 pg/mL (193-986)
[2022-09-03] MEDS: Pantoprazole 40 MG VIAL IVP (09:01)
--- NOTE | 2022-09-03 09:04 | CMPROGNOTE_ITS ---
- If Service Date Differs Date of service: 09/03/22 Time of Service: 09:04 Care Management Progress Note S/O:Kingston was lying in bed when CM met with him. He was cordial and agreeable to conversation. Kingston informed CM about the timeline for his most recent hospitalizations and surgeries. He stated that his surgery on Saturday had been scheduled in advance and that he had been hospitalized at [facility] in July and again in early August. He has also gone to [facility] [place] twice for outpatient percutaneo us abscess drainage procedures during this period. Kingston states that he is feeling better. He still has a naso-gastic tube and remains NPO. Kingston stated that he anticipates discharging home with no new services unless he needs specialized wound care. A: Kingston is a 57 year old man admitted on 08/31/22 woth perforated diverticculitis P:Anticipate Kingston will discharge home with [facility] RN services when medically ready. He will follow up with community providers and discharge plan of care as prescribed. Kingston uses [facility] in [place] if new RX's are needed. CM will continue to offer support to Kingston and assess for ongoing discharge needs.
[2022-09-03] MEDS: Oxybutynin-CR 5 MG TABCR PO (11:47)
[2022-09-03] MEDS: Tamsulosin 0.4 MG CAPCR PO (11:47)
[2022-09-03] MEDS: Normal Saline 500 ML 30 ML IV (11:49)
[2022-09-03] MEDS: MAGNESIUM SULFATE 2 GM/50 ML BAG IVPB (13:10)
[2022-09-03 15:05] VITALS: BP 135/71; PULSE 79; RESP 17; TEMP 36.9; O2SAT 95
[2022-09-03] MEDS: Enoxaparin 40 MG/0.4 ML SYR SC (18:19)
[2022-09-03] MEDS: Atorvastatin 40 MG TAB PO (21:09)
[2022-09-03 23:33] VITALS: BP 112/72; PULSE 74; RESP 16; TEMP 35.9; O2SAT 94
[2022-09-04] MEDS: ACETAMINOPHEN 1,000 MG/100 ML BTL 400 MG IVPB ×3 (03:47→17:43)
[2022-09-04] MEDS: Lactated Ringers 1,000 ML 75 ML IV ×2 (04:17→21:07)
[2022-09-04 06:22] LABS: Abs Immature Grans 0.03 10^3/uL (0.0-0.06); Absolute Basophil Count 0.14 10^3/uL (0.0-0.2); Absolute Lymphocyte Count 1.51 10^3/uL (1.2-3.4); Absolute Monocyte Count 0.63 10^3/uL (0.1-0.8); Absolute Neutrophil Count 5.53 10^3/uL (1.2-6.7); Basophils % 1.6; Eosinophils % 9.3; HCT 35.3 % (40.0-50.0); HGB 12.3 g/dL (13.5-17.5); Immature Grans % 0.3; Lymphocytes % 17.5; MCH 31.2 pg (27.0-33.0); MCHC 34.8 % (32.0-36.0); MCV 90 fL (80-95); MPV 9.3 fL (8.0-11.0); Monocytes % 7.3; Platelet Count 258 10^3/uL (130-400); RBC 3.94 10^6/uL (4.36-5.78); RDW 13.8 % (11.8-14.1); RDW-SD 45.3 fL; WBC 8.64 10^3/uL (4.4-10.8)
[2022-09-04 06:52] LABS: Anion Gap 13.4 mmol/L (3-11); BUN 7 mg/dL (7-18); CO2 21.6 mmol/L (21.0-32.0); CREATININE 0.4 mg/dL (0.70-1.30); Calcium 8.4 mg/dL (8.5-10.1); Chloride 106 mmol/L (98-107); Estimated GFR 126.47 (mL/min/1.73m2); Glucose 72 mg/dL (74-106); Magnesium 1.7 mg/dL (1.8-2.4); Potassium 3.4 mmol/L (3.5-5.1); Sodium 141 mmol/L (136-145)
[2022-09-04 07:31] VITALS: BP 122/76; PULSE 68; RESP 16; TEMP 36.3; O2SAT 95
[2022-09-04 07:52] VITALS: BP 138/73; PULSE 60; RESP 16; TEMP 36.4; O2SAT 96
[2022-09-04] MEDS: Oxybutynin-CR 5 MG TABCR PO (08:27)
[2022-09-04] MEDS: Tamsulosin 0.4 MG CAPCR PO (08:28)
[2022-09-04] MEDS: Pantoprazole 40 MG VIAL IVP (08:29)
[2022-09-04] MEDS: Normal Saline Flush 10 ML SYR IVP ×2 (08:29→12:07)
--- NOTE | 2022-09-04 09:12 | PDOC.CMPRO ---
- If Service Date Differs Date of service: 09/04/22 Time of Service: 09:12 Care Management Progress Note S/O:Kingston was lying in bed when CM met with him. He seemed to be in good spirits and shared that his osorio catheter had been removed and that his NG tube would also be removed today. He informed CM that he felt these were signs of progress. He admitted to being hungry and stated he was looking forward to the reintroduction of fluids and food. Kingston has been ambulating in his room. He remains afebrile and his vital signs are stable. A: Kingston is a 57 year old man admitted on 08/31/22 woth perforated diverticculitis P:Anticipate Kingston will discharge home with [facility] RN services when medically ready. He will follow up with community providers and discharge plan of care as prescribed. Kingston uses [facility] in [place] if new RX's are needed. CM will continue to offer support to Kingston and assess for ongoing discharge needs.
[2022-09-04] MEDS: Ketorolac 15 MG/ML VIAL IVP ×2 (12:07→17:42)
--- NOTE | 2022-09-04 12:51 | W.PM.PROGNOT ---
Date of Service Date of service: 09/04/22 Time of Service: 12:51 Assessment and Plan Assessment and plan (1) Acute on chronic blood loss anemia: Status: Acute (2) S/P colectomy: Status: Acute (3) S/P exploratory laparotomy: Status: Acute Assessment and plan: Postop day #4. Status post open sigmoid colectomy with primary anastomosis Is passing gas. No murmur bleeding. Dressing is clean and dry and hemoglobin has remained stable. He did get a dose of Venofer We will start him on clear liquids and encourage walking and pulmonary toilet. Pain is adequately controlled at this time. Gonsalves catheter is out he is urinating without any problems it is clear yellow. He has not noticed any sediment or air. Continue routine postop care. Electrolytes adjusted. (4) Diverticulitis of intestine with abscess: Status: Acute (5) Suspected sleep apnea: Status: Acute Subjective Subjective Interval history since last seen: Pt is doing well. no headaches. No CP or SOB. no productive cough. no dysuria. no leg pain or swelling. No further bleeding from incision. He did pass some gas and stool today. There is no blood. He is hungry. He notes he has not been sleeping well. We discussed expectations at home as far as evaluating bowels Exam Narrative Exam Narrative: PHYSICAL EXAM GENERAL APPEARANCE: Alert, healthy appearance, oriented, in no acute distress SKIN: No rashes.? No breakdown HYDRATION: Well hydrated HEAD, EYES, EARS, NECK, THROAT: Head is normocephalic, pupils equal, round, reactive to light and accommodation, ocular movement intact, sclera clear and no jaundice. ?Dentition intact. No sore throat.? No jaw pain. No thrush NECK: Supple, Trachea midline. No JVD. LUNGS: normal respiration/nl chest excursion. ?Clear to auscultation B/l no R/R/W ?HEART: Regular rate and rhythm, EXTREMITY: No edema or cyanosis? no leg pain, redness, swelling.? No IV infiltration ABDOMEN: Tyshawn's dressing in place. Dry and no strikethrough. Normal bowel sounds NEURO: no focal neuro deficits. Objective Last Vital Signs Temp 36.4 C L 09/04/22 07:52 Pulse 60 09/04/22 07:52 Resp 16 09/04/22 07:52 BP 138/73 09/04/22 07:52 Pulse Ox 96 09/04/22 07:52 Laboratory Results - last 24 hr 09/04/22 09/04/22 05:57 05:57 WBC 8.64 RBC 3.94 L Hgb 12.3 L Hct 35.3 L MCV 90 MCH 31.2 MCHC 34.8 RDW 13.8 Plt Count 258 MPV 9.3 Immature Gran % 0.3 Neutrophils % 64.0 Lymphocytes % 17.5 Monocytes % 7.3 Eosinophils % 9.3 Basophils % 1.6 Nucleated RBC % 0.0 Absolute Neutrophils 5.53 Absolute Lymphocytes 1.51 Absolute Monocytes 0.63 Absolute Eosinophils 0.80 H Absolute Basophils 0.14 Sodium 141 Potassium 3.4 L Chloride 106 Carbon Dioxide 21.6 Anion Gap 13.4 H BUN 7 Creatinine 0.4 L Est GFR (CKD-EPI 2020) 126.47 Glucose 72 L Calcium 8.4 L Magnesium 1.7 L
[2022-09-04] MEDS: MAGNESIUM SULFATE 1 GM/100 ML BAG IVPB (13:06)
[2022-09-04] MEDS: POTASSIUM CHLORIDE 10 MEQ/100 ML BAG 100 MEQ IVPB ×2 (14:24→15:29)
[2022-09-04 15:13] VITALS: BP 145/76; PULSE 73; RESP 16; TEMP 36.4; O2SAT 97
--- NOTE | 2022-09-04 17:18 | CHAPLAIN ---
Kingston was resting in bed when I visited. He told me about his surgery and that it was considered a best case scenario. He hopes to be going home in a day or two. He was hospitalized in July and August with diverticulitis and then scheduled for follow up surgery yesterday. Tera said he expects to continue to feel better each day.
[2022-09-04] MEDS: Enoxaparin 40 MG/0.4 ML SYR SC (17:42)
[2022-09-04] MEDS: Atorvastatin 40 MG TAB PO (21:06)
[2022-09-04 22:55] VITALS: BP 138/77; PULSE 62; RESP 18; TEMP 36.7; O2SAT 96
[2022-09-05] MEDS: Ketorolac 15 MG/ML VIAL IVP ×3 (06:00→18:24)
[2022-09-05] MEDS: Normal Saline Flush 10 ML SYR IVP ×5 (06:00→18:26)
[2022-09-05 07:16] VITALS: BP 157/74; PULSE 69; RESP 16; TEMP 36.5; O2SAT 99
[2022-09-05] MEDS: Tamsulosin 0.4 MG CAPCR PO (08:21)
[2022-09-05] MEDS: Oxybutynin-CR 5 MG TABCR PO (08:21)
[2022-09-05] MEDS: Pantoprazole 40 MG VIAL IVP (08:25)
--- NOTE | 2022-09-05 09:22 | CMPROGNOTE_ITS ---
- If Service Date Differs Date of service: 09/05/22 Time of Service: 09:22 Care Management Progress Note S/O: Kingston is being followed by surgical team. He is postop day #5. His labs are being closely monitored and he is receiving routine post op care. Medications are being transitioned to PO, his osorio is out and he is ambulating independently. Per surgery, Kingston may be able to discharge home tomorrow. New [facility] RN services are recommended per his Ins. Co. A: Kingston is a 57 year old man admitted on 08/31/22 woth perforated diverticulitis P:Anticipate Kingston will discharge home with New [facility] RN services when medically ready. He will follow up with community providers and discharge plan of care as prescribed. Kingston uses [facility] [place] if new RX's are needed. will continue to offer support to Kingston and assess for ongoing discharge needs.
--- NOTE | 2022-09-05 10:30 | W.PM.PROGNOT ---
Date of Service Date of service: 09/05/22 Time of Service: 10:30 Assessment and Plan Assessment and plan (1) S/P exploratory laparotomy: Status: Acute Assessment and plan: Postop day #5. Status post open sigmoid colectomy with primary anastomosis Is passing gas and had a BM. Dressing is clean and dry and hemoglobin has remained stable. He did get a dose of Venofer Advance diet to soft diabetic diet Switch meds to po Gonsalves catheter is out he is urinating without any problems it is clear yellow. He has not noticed any sediment or air. Continue routine postop care. Electrolytes adjusted. Possibly home tomorrow (2) Acute on chronic blood loss anemia: Status: Acute (3) Suspected sleep apnea: Status: Acute Subjective Subjective Interval history since last seen: Kingston is doing well. He is passing flatus and had a BM last night. He has had no N/V He has had no chest pain or SOB He would like somthing other then clear liquids to eat Exam Const General: comfortable and no acute distress Orientation: alert and oriented x3 HENMT Head: normocephalic and atraumatic Resp Effort & Inspection: normal respiratory effort Auscultation: clear to auscultation bilaterally Cardio Rate: regular rate Rhythm: regular rhythm GI Inspection: incision (THEA in place) Palpation: soft, no hepatosplenomegaly and nontender Auscultation: normoactive bowel sounds Objective Last Vital Signs Temp 97.7 F 09/05/22 07:16 Pulse 69 09/05/22 07:16 Resp 16 09/05/22 07:16 BP 157/74 H 09/05/22 07:16 Pulse Ox 99 09/05/22 07:16
[2022-09-05] MEDS: Acetaminophen 325 MG TAB 650 MG PO (11:22)
[2022-09-05 15:41] VITALS: BP 116/73; PULSE 64; RESP 16; TEMP 35.9; O2SAT 97
--- NOTE | 2022-09-05 15:54 | HPE_ITS ---
Date of service: 08/31/22 Assessment and Plan Assessment and plan (1) Diverticulitis of intestine with abscess: Status: Acute Assessment and plan: Proceed with sigmoid colectomy History of Present Illness History of Present Illness Chief Complaint: Previous diverticular Narrative: Kingston is a 57-year-old male with a past medical history of perforated diverticulitis. He was treated with a percutaneous drain targeting an abscess adjacent to the sigmoid colon behind the bladder. He is done fairly well as an outpatient, but continues to drain feculent appearing material through his percutaneous drain site, and he also has some symptoms of pneumaturia suggesting the possibility of a colovesicular fistula. He presents today for elective sigmoid colon Review of Systems Constitutional Constitutional: Reports system reviewed and no additional complaints, except as documented Eyes Eyes: Reports system reviewed and no additional complaints, except as documented ENT Ears, Nose, Mouth, and Throat: Reports system reviewed and no additional complaints, except as documented Cardiovascular Cardiovascular: Reports system reviewed and no additional complaints, except as documented Respiratory Respiratory: Reports system reviewed and no additional complaints, except as documented Gastrointestinal Gastrointestinal: Reports system reviewed and no additional complaints, except as documented Genitourinary Genitourinary: Reports system reviewed and no additional complaints, except as documented Neurologic Neurologic: Reports system reviewed and no additional complaints, except as documented Endocrine Endocrine: Reports system reviewed and no additional complaints, except as documented Hematologic/Lymphatic Hematologic/Lymphatic: Denies easy bleeding and Denies easy bruising PFSH All Active Problems Acute on chronic blood loss anemia (Acute) S/P colectomy (Acute) open sigmoid colectomy for diverticular Dx 08/31/22 S/P exploratory laparotomy (Acute) Erectile dysfunction (Chronic 03/04/17) Diverticulitis of intestine with abscess (Acute) 07/31/[address] - [address] guided drain placement perivesicular/perisigmoid diverticular abscess 08/10/22 DH - Replacement of dislodged pelvic abscess catheter Suspected sleep apnea (Acute) Nail dystrophy (Acute) Pain, foot (Acute) Medical History Anxiety with depression Diverticulitis Hyperlipidemia 09/2020 labs: adequate response, continue statin IFG (impaired fasting glucose) Insomnia disorder Metabolic syndrome Obesity Perforated diverticulum Tobacco use disorder Surgical History Arthroplasty of knee (~2013) L excisional bx rgt upper arm (12/28/05) lipoma Hx of colonoscopy Family History Father Essential hypertension Anxiety Hyperlipidemia Maternal Aunt Neoplasm metastatic esophageal CA Mother Hyperlipidemia Stroke Sister Goiter S/p bx (benign) Breast cancer Social History Smoking/Tobacco Use Status: Current every day Tobacco Type: cigarettes Smoking packs per day: 1.00 Smoking cigarettes per day: 20.0 Years smoked: 30 Smoking pack-years: 30.00 Quit status: considering quitting Smoking risk assessment performed?: Yes Alcohol Intake: current Alcohol Intake frequency: holidays/special occasions only Alcohol type: beer and hard liquor Drug use: Never Substance use type: does not use Adopted: No Caregiver/Support person: No Foster care: No Household members: family Housing: house Number of Children: 1 Communication Needs: Corrective Lenses Education Level: college Do you need help understanding health information?: Rarely 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 [employer] Pets and animals: Yes Pets and animals: dog(s) Sexually active: Yes Do you think of yourself as: straight/heterosexual Current gender identity: male What is your relationship status?: How often do you talk on the phone with friends or family?: twice per week How often do you get together with friends or relatives?: twice per week How often do you attend jehovah's witness or anabaptism services?: 1-3 times per year Do you belong to any clubs or organized social groups?: yes Panel score (0-1 are the most socially isolated patients): 2 What type of physical activity do you participate in: walking Duration: < 15 minutes/day Frequency: 3-4 times per week Anabela/Scientologist: Shinto Special anabela needs: No Seatbelt use: always Helmet use: Yes Drive intox or ride w/intox route driver coin machines: No Water heater temp set <120 deg: Yes Working smoke detector in home: Yes Fire extinguisher in home: Yes Carbon monox detector in home: Yes Firearms in home: No Do you feel safe at home: Yes Do you feel safe in your relationship?: Yes Meds Allergies and Home Medications Allergies Allergy/AdvReac Type Severity Reaction Status Date / Time Sulfa (Sulfonamide AdvReac Severe Diarrhea Verified 08/31/22 07:47 Antibiotics) levofloxacin [From Levaquin] AdvReac Unknown Diarrhea Verified 08/31/22 07:47 Home Medications Medication Instructions Recorded Confirmed Type sildenafil (pulm.hypertension) 20 20 mg PO DAILY PRN sexual activity 09/01/18 08/31/22 Rx mg tablet #14 tab-caps buspirone 7.5 mg tablet 7.5 mg PO BID PRN anxiety #180 02/17/20 08/31/22 Rx tab-caps albuterol sulfate 90 mcg/actuation 1 - 2 puff inhalation Q4H PRN 09/28/20 08/31/22 Rx aerosol inhaler shortness of breath or wheezing #1 unit atorvastatin 40 mg tablet (Lipitor) 40 mg PO HS #90 tab-caps 09/27/21 08/31/22 Rx sertraline 50 mg tablet 50 mg PO DAILY #90 tab-caps 05/22/22 08/31/22 Rx tamsulosin 0.4 mg capsule (Flomax) 0.4 mg PO DAILY #30 caps 07/16/22 08/31/22 Rx bisacodyl 5 mg tablet,delayed 5 mg PO .COMPLEX #8 tabs 08/22/22 08/31/22 Rx release (Dulcolax (bisacodyl)) metronidazole 500 mg tablet 500 mg PO .COMPLEX #3 tabs 08/22/22 08/31/22 Rx neomycin 500 mg tablet 500 mg PO .COMPLEX #6 tabs 08/22/22 08/31/22 Rx ondansetron HCl 8 mg tablet 8 mg PO .COMPLEX #3 tabs 08/22/22 08/31/22 Rx oxybutynin chloride 5 mg 5 mg PO DAILY 10 days #10 tabs 08/24/22 08/31/22 Rx tablet,extended release 24 hr (Ditropan XL) oxycodone 5 mg tablet 5 mg PO Q8H PRN pain #12 tabs 08/24/22 08/31/22 Rx Exam Const General: cooperative and comfortable Nutritional Appearance: overweight Orientation: awake and oriented x3 Eyes General: appearance normal, both eyes and all related structures Conjunctivae: conjunctivae normal Sclera: sclerae normal Resp Effort & Inspection: normal respiratory effort and able to speak in complete sentences Cardio Jugular venous pressure: no JVD Rate: regular rate GI Inspection: non-distended Palpation: soft, no guarding, no hernias and nontender Auscultation: normal bowel sounds Other: The drain is in place and seems to be working appropriately Skin General skin exam: normal turgor Neuro General: patient alert, patient awake and patient oriented x3 Cognition: normal cognition Extrem Right lower extremity: no edema Left lower extremity: no edema Results Labs Result diagrams: 09/04/22 05:57 09/04/22 05:57 Last Vital Signs Temp 96.6 F L 09/05/22 15:41 Pulse 64 09/05/22 15:41 Resp 16 09/05/22 15:41 BP 116/73 09/05/22 15:41 Pulse Ox 97 09/05/22 15:41
[2022-09-05] MEDS: Enoxaparin 40 MG/0.4 ML SYR SC (18:23)
[2022-09-05] MEDS: Atorvastatin 40 MG TAB PO (22:07)
[2022-09-05 23:10] VITALS: BP 142/83; PULSE 52; RESP 19; TEMP 36.4; O2SAT 97
--- NOTE | 2022-09-06 05:19 | W.PM.DS.N ---
DS: Diagnosis Discharge Diagnosis (1) Diverticulitis of intestine with abscess: Status: Resolved Asessment and Plan: He is doing great since sigmoidectomy. Follow-up in the office 7 to 10 days for staple removal Discharge Plan Disposition Patient Disposition: HOME Condition: Good Discharge Details Reason For Visit: perforated diverticulitis Admit Date/Time: 08/31/22 08:39 Admit Provider: Rambo Yan Attending Provider: Rambo Yan Primary Care Provider: Maribel Carpenter Hospital Course Hospital Course: Kingston is a 57-year-old male who came to the hospital for exploratory laparotomy and sigmoid colon resection after perforated diverticulitis and percutaneous drainage. He did well postoperatively, with a slow return of bowel function. By the afternoon of 09/05/2022 he was tolerating a regular diet. He was having bowel movements, and his pain was well controlled. Home Meds and New Rx's Prescriptions: Continued sildenafil (pulm.hypertension) 20 mg tablet 20 mg PO DAILY PRN (Reason: sexual activity) Qty: 14 3RF Rx Instructions: Take 20 mg once daily as needed 1 hour before sexual activity albuterol sulfate 90 mcg/actuation HFA aerosol inhaler 1 - 2 puff inhalation Q4H PRN (Reason: shortness of breath or wheezing) Qty: 1 3RF Rx Instructions: Dispense brand of albuterol inhaler covered by patient's insurance tamsulosin [Flomax] 0.4 mg capsule 0.4 mg PO DAILY Qty: 30 2RF buspirone 7.5 mg tablet 7.5 mg PO BID PRN (Reason: anxiety) Qty: 180 0RF atorvastatin [Lipitor] 40 mg tablet 40 mg PO HS Qty: 90 3RF sertraline 50 mg tablet 50 mg PO DAILY Qty: 90 1RF Discontinued metronidazole 500 mg tablet 500 mg PO .COMPLEX Qty: 3 0RF Rx Instructions: 500 mg orally Take 1 tablets at 1 PM on 08/30 Take 1 tablet at 2 PM on 08/30 Take 1 Tablet at 10 PM on 08/30 neomycin 500 mg tablet 500 mg PO .COMPLEX Qty: 6 0RF Rx Instructions: Take 2 tablets at 1 PM on 08/30 Take 2 tablets at 2 PM on 08/30 Take 2 Tablets at 10 PM on 08/30 ondansetron HCl 8 mg tablet 8 mg PO .COMPLEX Qty: 3 0RF Rx Instructions: Take 1 tab at 1 PM on 08/30, take 1 tab at 9 PM on 08/30, take 1 tab with a sip of water on the morning of 08/31 bisacodyl [Dulcolax (bisacodyl)] 5 mg tablet,delayed release (DR/EC) 5 mg PO .COMPLEX Qty: 8 0RF Rx Instructions: Take as instructed oxybutynin chloride [Ditropan XL] 5 mg Tablet Extended Release 24hr 5 mg PO DAILY 10 Days Qty: 10 0RF oxycodone 5 mg tablet 5 mg PO Q8H PRN (Reason: pain) Qty: 12 0RF Rx Instructions: Take 1 tablet by mouth every 8 hours as needed for severe pain. Discharge Instructions Instructions: Bowel Resection (GEN) Additional Instructions: 1. Resume all of your medications. 2. Okay to use tylenol and ibuprofen over the counter as needed. 3. Shower with warm soapy water. Pat dry. Use a bandaid if needed to protect your clothing. 4. No soaking or tub baths until I see you in the office. 5. No heavy lifting until I see you in the office. 6.Call the office (or go directly to the emergency room after hours) if you notice any of the following: Develop chills (warm to touch), or if you have a thermometer and your temperature is above 101 Difficulty breathing or difficultly swallowing Persistent vomiting Any bleeding ? exceeding one tablespoon Stand Alone Forms: Nursing Discharge Form Referrals: Rambo Yan MD [ [facility] STAFF PHYSICIAN] - 09/12/22 1:00 pm (7-10 days for staple removal) Activity:: Lifting restriction Equipment/Supplies:: No Equipment Needed Diet:: As Tolerated Discharge Orders Discharge Orders: Discharge Order (Routine); Ordered 09/06/22 Ordered By: Rambo Yan Discharge Data Discharge Date/Time-TO BE ENTERED AT DEPARTURE: 09/06/22 10:05 DS: Summary Time Spent with Patient providing and/or coordinating discharge services: Greater than 30 minutes Status at Discharge Functional status at discharge: independent ambulation Overall status at discharge: patient is progressing back to baseline Mental Status: mental status grossly normal Speech and Movement: speech and movement normal Mood: congruent mood Affect: normal affect Exam Const General: cooperative, healthy appearing and comfortable Orientation: awake and oriented x3 Eyes General: appearance normal, both eyes and all related structures Conjunctivae: conjunctivae normal Sclera: sclerae normal Resp Effort & Inspection: normal respiratory effort and able to speak in complete sentences Cardio Jugular venous pressure: no JVD Rate: regular rate GI Inspection: non-distended Palpation: soft, no guarding, no hernias and nontender Auscultation: normal bowel sounds Other: I removed the charbel dressing. It is clean and dry. Skin General skin exam: normal turgor Neuro General: patient alert, patient awake and patient oriented x3 Cognition: normal cognition Extrem Right lower extremity: no edema Left lower extremity: no edema Psych Mental Status: mental status grossly normal Speech and Movement: speech and movement normal Mood: congruent mood Affect: normal affect DS: Data Vitals/I&O Vitals and I&O: Vital Signs Temperature 97.5 F L 09/05/22 23:10 Temperature Source Tympanic 09/05/22 23:10 Pulse 52 L 09/05/22 23:10 Pulse Rhythm Regular 09/05/22 19:53 Respiratory Rate 19 09/05/22 23:10 Respiratory Effort Non-Labored 09/05/22 19:53 Respiratory Depth Normal 09/05/22 19:53 Respiratory Pattern Normal 09/05/22 19:53 Blood Pressure 142/83 H 09/05/22 23:10 Pulse Oximetry 97 09/05/22 23:10 Respiratory End-tidal CO2 40 08/31/22 17:49 Oxygen Delivery Method Room Air 09/05/22 23:10 Oxygen Flow Rate 0 09/05/22 23:10 Pain Level 0 09/05/22 23:10 Comment 09/04/22 15:13 Intake & Output 09/05/22 09/05/22 09/06/22 11:59 23:59 11:59 Intake Total 1260 / 1960 700 / 1960 Balance 1260 / 1960 700 / 1960 Intake: IV 1000 / 1000 Oral 260 / 960 700 / 960 Other: Urine Color Yellow Urine Appearance Clear Clear Comment pt up ad karl, voiding independently in toilet pt voiding independently in toilet Stool Size Moderate Moderate Stool Characteristics Formed Brown Voiding Methods Toilet Toilet Data Completed and Pending Labs on day of discharge: Labs from last 24 hours 09/06/22 05:35 Plt Count Pending [facility] All Active Problems (Updated 09/07/22 @ 00:06 by NAYELY QUEZADA) Acute on chronic blood loss anemia (Acute) Erectile dysfunction (Chronic 03/04/17) Suspected sleep apnea (Acute) Nail dystrophy (Acute) Pain, foot (Acute) Medical History Anxiety with depression Diverticulitis Hyperlipidemia 09/2020 labs: adequate response, continue statin IFG (impaired fasting glucose) Insomnia disorder Metabolic syndrome Obesity Perforated diverticulum Tobacco use disorder Surgical History Arthroplasty of knee (~2012) L excisional bx rgt upper arm (12/28/05) lipoma Hx of colonoscopy Family History Father Essential hypertension Anxiety Hyperlipidemia Maternal Aunt Neoplasm metastatic esophageal CA Mother Hyperlipidemia Stroke Sister Goiter S/p bx (benign) Breast cancer Social History Smoking/Tobacco Use Status: Current every day Tobacco Type: cigarettes Smoking packs per day: 1.00 Smoking cigarettes per day: 20.0 Years smoked: 30 Smoking pack-years: 30.00 Quit status: considering quitting Smoking risk assessment performed?: Yes Alcohol Intake: current Alcohol Intake frequency: holidays/special occasions only Alcohol type: beer and hard liquor Drug use: Never Substance use type: does not use Adopted: No Caregiver/Support person: No Foster care: No Household members: family Housing: house Number of Children: 1 Communication Needs: Corrective Lenses Education Level: college Do you need help understanding health information?: Rarely 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 Pets and animals: Yes Pets and animals: dog(s) Sexually active: Yes Do you think of yourself as: straight/heterosexual Current gender identity: male What is your relationship status?: How often do you talk on the phone with friends or family?: twice per week How often do you get together with friends or relatives?: twice per week How often do you attend muslim or denominational services?: 1-3 times per year Do you belong to any clubs or organized social groups?: yes Panel score (0-1 are the most socially isolated patients): 2 What type of physical activity do you participate in: walking Duration: < 15 minutes/day Frequency: 3-4 times per week Anabela/Mormon: Shinto Special anabela needs: No Seatbelt use: always Helmet use: Yes Drive intox or ride 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
[2022-09-06 06:25] LABS: Platelet Count 276 10^3/uL (130-400)
[2022-09-06 07:34] VITALS: BP 133/73; PULSE 54; RESP 16; TEMP 36.8; O2SAT 99
[2022-09-06] MEDS: Oxybutynin-CR 5 MG TABCR PO (07:43)
[2022-09-06] MEDS: Omeprazole 20 MG CAPCR PO (07:43)
[2022-09-06] MEDS: Tamsulosin 0.4 MG CAPCR PO (07:43)
[2022-09-06] MEDS: Acetaminophen 325 MG TAB 650 MG PO (07:44)
[2022-09-06] MEDS: busPIRone 15 MG TAB 7.5 MG PO (07:48)
--- NOTE | 2022-09-06 13:34 | CMDISCH_ITS ---
- If Service Date Differs Date of service: 09/06/22 Time of Service: 13:34 LACE Index Scoring Tool - Questions: Length of Stay (in days): 4 - 6 Acuity (Admit via E.D.?): Yes E.D. Visits: 2 - Answers: Total Score: 9 Risk of Readmission: Low Risk Care Management Discharge Reason for Hospitalization: Diverticulitis Discharge Plan: Kingston will discharge home with no new services. He will follow up with community providers and discharge plan of care as prescribed and transport via private vehicle. Patient/Family Education Needs: Review discharge instructions, limitations, medications and plan to follow up with community providers. Discuss ask me thr ee.
== END 2022-09-06 10:05 | disposition home or self-care (01) | DRG 330 ==
LOC: MS 09-01 00:32 → PDS 09-03 09:58
PROVIDERS: Surgery; Urology; Admitting Provider Surgery; PCP Nurse Practitioner Family; Visit Provider Surgery
PROC: 0DBN0ZZ Excision of Sigmoid Colon, Open Approach (ICD-10-PCS; CPT 49000; principal; 2022-08-31 10:45)
PROC: 0DBN0ZZ Excision of Sigmoid Colon, Open Approach (ICD-10-PCS; CPT 44140; 2022-08-31 10:45)
PROC: 0T788DZ Dilation of Bilateral Ureters with Intraluminal Device, Via Natural or Artificial Opening Endoscopic (ICD-10-PCS; CPT 52332; 2022-08-31 10:45)
DX: K57.20 Diverticulitis of large intestine with perforation and abscess without bleeding (principal); D62 Acute posthemorrhagic anemia; F41.8 Other specified anxiety disorders; E78.5 Hyperlipidemia, unspecified; G47.00 Insomnia, unspecified; E66.9 Obesity, unspecified; Z68.39 Body mass index [BMI] 39.0-39.9, adult; F17.210 Nicotine dependence, cigarettes, uncomplicated; E88.81 Metabolic syndrome and other insulin resistance; G47.33 Obstructive sleep apnea (adult) (pediatric)
CPT/HCPCS: 44140; 52000; 36415; 80048; 87635; 90686; J1650; 82607; 82728; 82746; 83735; 85025; 85049; 88307; J0131; J0690; J1100; J1885; J2250; J2270; J2405; J2704; J3010; J3475; J3480

== ENCOUNTER 2022-10-03 02:47 | Outpatient (CLI) | payer BC, SELFPAY ==
[2022-10-03 08:52] LABS: Calculated LDL 102 mg/dL (<100); Cholesterol 172 mg/dL (<200); HDL Cholesterol 39 mg/dL (40-60); Triglyceride 158 mg/dL (<150)
[2022-10-03 09:16] LABS: Hemoglobin A1C 5.6 % (<5.7)
== END 2022-10-03 02:48 | disposition home or self-care (01) ==
LOC: LBO 02:47
PROVIDERS: PCP Nurse Practitioner Family; Visit Provider Nurse Practitioner Family
DX: R73.01 Impaired fasting glucose (principal); E78.5 Hyperlipidemia, unspecified
CPT/HCPCS: 36415; 80061; 83036

== ENCOUNTER 2023-11-08 07:04 | Day surgery (SDC) | payer BC, SELFPAY ==
--- NOTE | 2023-11-07 19:29 | W.COLOREPORT ---
Date of service: 11/08/23 Time of Service: 09:30 Colonoscopy Report Date of procedure: 11/08/23 Pre-op diagnosis general: crc/hx of diverticulits adn S. colon resection Post-op diagnosis procedure note: same (Colon polyp) Surgeon: Natalie Mehta Anesthesia Type: General:No Airway Estimated blood loss (mL): 1 Pathology: other Complications: None Disposition: same day Prep: Miralax/Dulcolax Retraction Time: 11 Procedure Description: After informed consent was obtained the patient was taken to the procedure room and placed in a left decubitous position. Monitors were applied and a time out was done. The patients name, date of , procedure, allergies to medications and metal in their body was reviewed. The patient was then sedated. Once sedated and comfortable a rectal exam was done. External exam was normal. Internal exam revealed a normal sphincter tone and no palpable masses. The prostate -not palpable The scope was then introduced and retrofelexed. No internal hemorrhoids were identified. The scope was then advanced to the cecum without difficulty. The TI and appendiceal orifice were identified. The prep was BBPS 2 in all segments for a total of 6. The scope was then slowly retracted over 11 minutes back into the rectum. Anastomosis is at 23 cm, it is widely patent and no bleeding. He had a flat 0.5 cm polyp at 20 cm. This is removed with a cold biting forcep. All specimen is retrieved and no bleeding is noted. The scope was removed and the patient was woken up and taken back to Same day surgery in stable condition. The patient tolerated the procedure well and there were no immediate complications. Follow up: The patient should follow up in 7-10 years, path pending, unless they develop changes in bowel habits or other new gastrointestinal complaints.
--- NOTE | 2023-11-07 19:30 | PDOC.DSDIS_ITS ---
Date of service: 11/08/23 Time of Service: 09:31 Discharge Plan Disposition Patient Disposition: Home Condition: Good Discharge Details Reason For Visit: colon scope Attending Provider: Natalie Mehta Primary Care Provider: Yasmine Bond Home Meds and New Rx's Prescriptions: Continued albuterol sulfate 90 mcg/actuation HFA aerosol inhaler 1 - 2 puff inhalation Q4H PRN (Reason: shortness of breath or wheezing) Qty: 1 3RF Patient Comments: 11/08/23 pt rports last used 6 months ago Rx Instructions: Dispense brand of albuterol inhaler covered by patient's insurance psyllium husk 2.6 gram/4.1 gram powder 1 tbsp PO DAILY Rx Instructions: mix into at least 8 oz of water or juice before administering sildenafil (pulm.hypertension) 20 mg tablet 20 mg PO DAILY PRN (Reason: sexual activity) Qty: 14 3RF Rx Instructions: Take 20 mg once daily as needed 1 hour before sexual activity sertraline 50 mg tablet 50 mg PO DAILY Qty: 90 1RF ketoconazole 2 % cream 1 applic topical DAILY 90 Days Qty: 60 0RF Rx Instructions: Apply to toenails once daily buspirone 7.5 mg tablet 7.5 mg PO BID PRN (Reason: anxiety) Qty: 180 0RF atorvastatin [Lipitor] 40 mg tablet 40 mg PO HS Qty: 90 3RF Discontinued bisacodyl [Dulcolax (bisacodyl)] 5 mg tablet,delayed release (DR/EC) 5 mg PO ONCE Qty: 4 0RF Rx Instructions: Take per colonoscopy instructions provided by ordering providers office polyethylene glycol 3350 17 gram/dose powder 17 g PO ONCE Qty: 238 0RF Rx Instructions: Take per colonoscopy instructions provided by ordering providers office Discharge Instructions Additional Instructions: DSU Colonoscopy Post- Op Instructions Instructions for Everyone who is given Anesthesia: For your safety, please do the following for the next twenty-four (24) hours: *Do Not operate a motor vehicle (car, truck, motorcycle, etc.) *Do Not drink alcoholic beverages or use any recreational drugs for the first 24 hours or while taking pain medications. The medications in your body may have a reaction that can be dangerous. *Do Not make any important decisions or sign any important papers. Findings: x1 Small polyp. Follow up: -My office will send you a letter in 2 to 3 weeks time with the results of the pathology and when we want you to repeat the colonoscopy, most likely in 7 to 10 years time. Follow-up with Dr. Yan for consideration of hernia repair 1. No lifting over 20 pounds or strenuous activity for the first 24 hours after your procedure. After 24 hours there are no restrictions on your activity but you may feel fatigued for a few days. 2. After you arrive home you may have a light meal and return to your normal diet as you can tolerate it without feeling sick to your stomach. 3. You may have a bloated, gaseous feeling in your belly (abdomen) after a colonoscopy. Passing gas and belching will help. Walking or lying down on your left side with your knees flexed may relieve the discomfort. Call the office at [phone] (Office) or [phone] (Hospital) right away if you notice any of the following: a.Vomiting of blood or ?coffee ground stools?. b.Rectal bleeding 1Tbsp, blood clots or continuous bleeding. c.Severe belly (abdominal) pain. d.A hard distended belly (abdomen) and an inability to pass gas. 4. Please don?t expect to have a normal BM (bowel movement) for 2-3 days after your procedure. 5. If there are questions regarding the findings of your procedure, please contact your doctor 6. If you are unable to contact your doctor with a problem, contact the hospital at [phone]. 7. Continue all your regular medications unless directed otherwise. I understand the above instructions and have no questions. Signature of Patient or Adult Escort Name of Responsible Adult Escort Signature of Nurse Date/Time Activity:: see above Diet:: see above DS: Diagnosis Discharge Diagnosis (1) Incisional hernia: Status: Acute (2) Suspected sleep apnea: Status: Acute (3) Obesity: Status: Chronic (4) IFG (impaired fasting glucose): Status: Acute (5) Tobacco use disorder: Status: Acute (6) Metabolic syndrome: Status: Acute (7) Insomnia disorder: Status: Acute (8) Hyperlipidemia: Status: Acute (9) S/P colectomy: Asessment and Plan: The patient is seen and examined after their colonoscopy.? The patient has been able to pass gas.? They are not having abdominal pain.? They have been able to tolerate liquids and a snack.? They do not have any nausea or vomiting.? They are not having any chest pain or shortness of breath.??? They are not having any rectal bleeding. Their vital signs have been stable-see nursing notes. We discussed findings during their colonoscopy, and any biopsies that were done/polyps that were removed. The patient will be sent a letter with any biopsy results, and when to repeat the colonoscopy.-see discharge instructions. Patient was given explicit instructions to follow-up regarding colonoscopy-refer to discharge instructions.? We reviewed resumption of medications. Patient verbalized understanding and discharged in stable and satisfactory condition- See nursing notes.
[2023-11-08 07:34] VITALS: BP 159/93; PULSE 91; RESP 16; TEMP 36.3; O2SAT 97
[2023-11-08] MEDS: Lactated Ringers 1,000 ML 80 ML IV (07:42)
--- NOTE | 2023-11-08 07:49 | W.ANESPRE ---
General Info Date of Service Date Performed: 11/08/23 Height: 6 ft 1 in Weight: 148.1 kg Body Mass Index (BMI): 43.0 Surgical Procedure: Operation Date: 11/08/23 08:20 Proposed Procedure Side Surgeon leslie Mehta, DO Meds Allergies and Home Medications Allergies Allergy/AdvReac Type Severity Reaction Status Date / Time Sulfa (Sulfonamide AdvReac Severe Diarrhea Verified 11/08/23 07:44 Antibiotics) levofloxacin [From Levaquin] AdvReac Unknown Diarrhea Verified 11/08/23 07:44 Home Medication Medication Instructions Recorded buspirone 7.5 mg tablet 7.5 mg PO BID PRN anxiety #180 02/17/20 tab-caps albuterol sulfate 90 mcg/actuation 1 - 2 puff inhalation Q4H PRN 09/28/20 aerosol inhaler shortness of breath or wheezing #1 unit psyllium husk 2.6 gram/4.1 gram 1 tbsp PO DAILY 10/10/22 oral powder sildenafil (pulm.hypertension) 20 20 mg PO DAILY PRN sexual activity 10/10/22 mg tablet #14 tab-caps atorvastatin 40 mg tablet (Lipitor) 40 mg PO HS #90 tab-caps 12/28/22 sertraline 50 mg tablet 50 mg PO DAILY #90 tab-caps 04/10/23 ketoconazole 2 % topical cream 1 applic topical DAILY 3 months 08/14/23 #60 grams Current Visit Medications: Current Medications Generic Name Dose Route Start Last Admin Trade Name Freq PRN Reason Stop Dose Admin Ringer's Solution 1,000 mls @ 80 mls/hr 11/08/23 06:00 11/08/23 07:42 IV 11/08/23 23:59 80 mls/hr INFUSION FARHANA Administration IV Miscellaneous Supplies 1 each 11/08/23 06:00 Iv Access IV 11/08/23 23:59 DIRECTED FARHANA Sodium Chloride 0 ml 11/08/23 06:00 Normal Saline Flush 10 Ml Syr IV 11/08/23 23:59 PRN PRN Sodium Chloride 0 ml 11/08/23 06:00 Normal Saline 10 Ml Vial IJ 11/08/23 23:59 DIRECTED PRN Sterile Water 0 ml 11/08/23 06:00 Water,Injection,Sterile 10 Ml Vial IJ 11/08/23 23:59 DIRECTED PRN PFSH Active Problems Active Problems: Problem Status Onset Code COVID ~09/2023 U07.1 Ingrown toenail L60.0 Onychomycosis B35.1 Incisional hernia K43.2 Pain, foot M79.673 Nail dystrophy L60.3 Suspected sleep apnea R29.818 Obesity E66.9 IFG (impaired fasting glucose) R73.01 Anxiety with depression F41.8 Tobacco use disorder F17.200 Metabolic syndrome E88.81 Insomnia disorder G47.00 Hyperlipidemia E78.5 Erectile dysfunction 03/04/17 N52.9 Medical History Medical History Perforated diverticulum Diverticulitis Surgical History Surgical History H/O arthroscopic knee surgery S/P colectomy open sigmoid colectomy for diverticular Dx 08/31/22 S/P exploratory laparotomy Hx of colonoscopy excisional bx rgt upper arm (12/28/05) lipoma Tobacco Smoking/Tobacco Use Status: Current every day Tobacco Type: cigarettes Smoking packs per day: 1.00 Smoking cigarettes per day: 20.0 Years smoked: 30 Smoking pack-years: 30.00 Alcohol Alcohol Intake: current Alcohol intake frequency: holidays/special occasions only Alcohol type: beer and hard liquor Substance Use Substance use: Never Substance use type: does not use Vital Signs and Lab Results Vital Signs Most Recent Vital Signs in EMR: Most Recent Vital Signs Temp Pulse Resp BP Pulse Ox 36.3 C L 91 H 16 159/93 H 97 11/08/23 07:34 11/08/23 07:34 11/08/23 07:34 11/08/23 07:34 11/08/23 07:34 Lab Results Blood Type / Crossmatch: No Data to Display Complete Blood Count: No Data to Display Complete Metabolic Panel: No Data to Display Liver Function Panel: No Data to Display Coagulation Panel: No Data to Display Cardiac Panel: No Data to Display Arterial Blood Gas: No Data to Display Venous Blood Gas: No Data to Display Pancreas Panel: No Data to Display Thyroid Panel: No Data to Display Infectious Disease: No Data to Display Blood Cultures: No Data to Display Toxicology Panel: No Data to Display Anesthesia Assessment and Plan Anesthesia History Personal History: No History of Anesthesia Complications Family History: No Family History of Anesthesia Complications Exercise Tolerance Exercise Tolerance: Metabolic Equivalents>4 Pertinent Negatives Pertinent Negatives: No Symptoms of GERD, No Major Cardiovascular Symptoms or Complaints, No Major Pulmonary Symptoms or Complaints and No History of CVA/TIA Cardiac & Pulmonary Exam Cardiac Exam: Normal S1/S2 Heart Sounds Pulmonary Exam: Clear Bilateral Breath Sounds Implantable Cardiac Device Does patient have a Pacemaker or an ICD?: No Airway Exam Known Difficult Airway: No Mallampati Class: 2 Mouth Opening: Normal (> 3cm) Thyromental Distance: Greater than 3 cm Neck Range of Motion: Full ROM Neck Circumference: Thick Teeth Condition: Normal Dentition ASA Classification ASA Score: ASA 2 Emergency Case?: No NPO Status NPO Status: NPO Clears >2 hours, Solids >8 hours Anesthesia Plan Resuscitation Status: Full Code Anesthesia Technique: General Anesthesia Airway Planned: Natural Airway Monitors Used: Standard Monitors
[2023-11-08 08:44] VITALS: BMI 43.0
--- NOTE | 2023-11-08 09:06 | BOWEL_PTH ---
PATIENT: Kingston Alex III LOC: [facility] U#:[id number] AGE/SX: 58/M ROOM: RE11/08/[address]: Natalie Mehta : 1965 BED: DIS: 11/08/2023 SPEC #: [id number]: RECD: 11/08/23 12:43 STATUS: ESTHER REQ #: [id number] CARLOS: 11/08/23 09:[address]: Natalie Mehta DEPT: Surgical Specimen RECD BY: Maria Alejandra Mercado ENTERED: 11/08/23 12:43 SP TYPE: Bowel OTHR DR: Yasmine Bond APRN Tissues: 1 - BIOPSY BOWEL Procedures: GROSS AND MICRO LEVEL 4 Comments: [id number]
[2023-11-08 09:26] VITALS: BP 118/75; PULSE 82; RESP 20; TEMP 36.8; O2SAT 96
[2023-11-08 09:56] VITALS: BP 139/90; PULSE 82; RESP 20; TEMP 36.5; O2SAT 98
--- NOTE | 2023-11-08 09:58 | W.ANESPOSTOP ---
Postoperative Evaluation Date, Time and Location Date Performed: 11/08/23 Time Performed: 08:44 Patient Location: Day Surgery Unit Vital Signs Most Recent Imported Vital Signs: Most Recent Vital Signs Temp Pulse Resp BP Pulse Ox 36.8 C 82 20 118/75 96 11/08/23 09:26 11/08/23 09:26 11/08/23 09:26 11/08/23 09:26 11/08/23 09:26 Pain Score Most Recent Pain Score: Most Recent Pain Score Pain Level 0 11/08/23 09:26 Assessment Mental Status: Awake (Alert & Oriented to Patient Baseline) Airway and Respiratory Function: Patent airway with normal (patient baseline) respiratory exam Cardiovascular Function: Hemodynamically Stable Hydration Status: Adequately Hydrated Nausea & Vomiting: No Nausea or Vomiting Pain: Pt. Denies Any Pain Peripheral Nerve Block: Patient did not receive a nerve block
== END 2023-11-08 10:20 | disposition home or self-care (01) ==
LOC: SUR 07:05
PROVIDERS: PCP Nurse Practitioner; Visit Provider Surgery
PROC: 0DJD8ZZ Inspection of Lower Intestinal Tract, Via Natural or Artificial Opening Endoscopic (ICD-10-PCS; CPT 45378; principal; 2023-11-08 08:15)
DX: Z12.11 Encounter for screening for malignant neoplasm of colon (principal); K63.5 Polyp of colon; R29.818 Other symptoms and signs involving the nervous system; E66.9 Obesity, unspecified; Z90.49 Acquired absence of other specified parts of digestive tract; Z68.41 Body mass index [BMI] 40.0-44.9, adult; K43.2 Incisional hernia without obstruction or gangrene; F17.200 Nicotine dependence, unspecified, uncomplicated
CPT/HCPCS: 45380; 88305; J2001

== ENCOUNTER 2023-11-14 01:03 | Outpatient (CLI) | payer BC, SELFPAY ==
[2023-11-14 08:24] LABS: ALT 46 U/L (16-63); AST 22 U/L (15-37); Albumin 3.6 g/dL (3.4-5.0); Alkaline Phosphatase 125 U/L (46-116); Anion Gap 7.5 mmol/L (3-11); BUN 11 mg/dL (7-18); Bilirubin, Total 0.4 mg/dL (0.2-1.0); CO2 29.5 mmol/L (21.0-32.0); CREATININE 0.9 mg/dL (0.70-1.30); Calculated LDL 111 mg/dL (<100); Chloride 102 mmol/L (98-107); Cholesterol 190 mg/dL (<200); Estimated GFR 98.38 (mL/min/1.73m2); Glucose 104 mg/dL (74-106); HDL Cholesterol 42 mg/dL (40-60); Sodium 139 mmol/L (136-145); Total Protein 7.5 g/dL (6.4-8.2); Triglyceride 188 mg/dL (<150)
[2023-11-14 08:25] LABS: Hemoglobin A1C 5.9 % (<5.7)
== END 2023-11-14 01:04 | disposition home or self-care (01) ==
LOC: LBO 01:03
PROVIDERS: Nurse Practitioner Family; PCP Nurse Practitioner; Visit Provider Nurse Practitioner
DX: E78.5 Hyperlipidemia, unspecified (principal); E88.810 Metabolic syndrome; R73.01 Impaired fasting glucose
CPT/HCPCS: 36415; 80053; 80061; 83036

== ENCOUNTER 2024-02-07 06:56 | Day surgery (SDC) | payer BC, SELFPAY ==
--- NOTE | 2024-02-06 19:17 | PDOC.DSDIS_ITS ---
Date of service: 02/07/24 Time of Service: 11:30 Discharge Plan Disposition Patient Disposition: Home Condition: Good Discharge Details Reason For Visit: Laproscopic ventral hernia repair Attending Provider: Rambo Yan Primary Care Provider: Yasmine Bond Home Meds and New Rx's Prescriptions: New hydromorphone [Dilaudid] 2 mg tablet 2 mg PO Q4H PRNQty: 15 0RF Rx Instructions: Take 1 tablet by mouth if needed for more severe pain. Do not drive while using this medication. Continued albuterol sulfate 90 mcg/actuation HFA aerosol inhaler 1 - 2 puff inhalation Q4H PRN (Reason: shortness of breath or wheezing) Qty: 1 3RF Patient Comments: 11/08/23 pt rports last used 6 months ago Rx Instructions: Dispense brand of albuterol inhaler covered by patient's insurance atorvastatin [Lipitor] 40 mg tablet 40 mg PO HS Qty: 90 3RF sildenafil (pulm.hypertension) 20 mg tablet 20 mg PO DAILY PRN (Reason: sexual activity) Qty: 14 3RF Rx Instructions: Take 20 mg once daily as needed 1 hour before sexual activity buspirone 7.5 mg tablet 7.5 mg PO BID PRN (Reason: anxiety) Qty: 180 0RF sertraline 50 mg tablet 50 mg PO DAILY Qty: 90 0RF Discharge Instructions Instructions: Ventral Hernia Repair (DC) Additional Instructions: Kingston, you did great in the operating room today, and hopefully the hernia repair will be relatively comfortable for you. Everything went very smoothly, and we were able to get a good patch over the source of the hernia. Nothing else was out of the ordinary or worrisome. As we talked about beforehand, do not be alarmed if you start to develop some focal pinpoint type pain in di fferent parts of your abdominal wall over the days to come. I did use medication to block the nerves on both sides of your abdominal wall, so hopefully that will help provide some relief. I also provided a prescription for some pain medications if Tylenol and ibuprofen are insufficient in the days to come. I look forward to seeing you in the office on February 25, but if you need anything in the meantime, please do not hesitate to call at any point. 1. Resume all of your medications. 2. Use heating pads and ice packs as needed for pain. 3. Alternate over the counter tylenol and ibuprofen every 6 hours for 2 days, then use as needed. Use Dilaudid for more severe pain 4. Leave bandages in place for 24 hours, then remove. 5. Shower with warm soapy water. Pat dry. Use a bandaid if needed to protect your clothing. 6. No soaking or tub baths until I see you in the office. 7. No heavy lifting until I see you in the office. 8. Call the office (or go directly to the emergency room after hours) if you notice any of the following: Develop chills (warm to touch), or if you have a thermometer and your temperature is above 101 Difficulty breathing or difficultly swallowing Persistent vomiting Any bleeding ? exceeding one tablespoon 9. Call your physician if the site where your intravenous was started becomes red, swollen, painful, and warm to touch. Stand Alone Forms: Anesthesia Discharge Inst., DSU Post D&C Referrals: Rambo Yan MD [ [facility] STAFF PHYSICIAN] - 02/26/24 8:00 am Activity:: no heavy lifting Remove Dressings/Wound Care:: 24 hours Shower/Bathe:: 24 hours Diet:: As Tolerated Discharge Orders Discharge Orders: Discharge Order (Routine); Ordered 02/06/24 Ordered By: Rambo Yan DS: Diagnosis Discharge Diagnosis (1) Incisional hernia: Status: Acute Asessment and Plan: Outpatient postoperative follow-up on February 25
--- NOTE | 2024-02-06 19:20 | W.PM.OP ---
Date of service: 02/07/24 Time of Service: 11:35 Operative Note Operative Note DATE OF PROCEDURE: 02/07/24 PRE-OP DIAGNOSIS: Incisional ventral hernia POST-OP DIAGNOSIS: other (Multiple incisional hernias) PROCEDURE: Laparoscopic ventral hernia repair with [address] mesh SURGEON: Rambo Yan ANALYST BUSINESS ANALYSIS: Samreen Everett ANESTHESIA TYPE: General LMA/ETT Refer to Anesthesia Record ESTIMATED BLOOD LOSS: 25 PATHOLOGY: none sent COMPLICATIONS: None Patient was transported to: PACU Patient's condition: stable Implants: 8 x [address] mesh Indications: Kingston is a 58-year-old male with a previous laparotomy for complicated diverticulitis. He developed a symptomatic incisional hernia. Findings: 3 midline incisional hernias Procedure Description: After the induction of general endotracheal anesthesia, Gonsalves urinary catheter was placed using aseptic technique in usual fashion. Next, I prepped and draped the anterior abdominal wall. We began by gaining entry into the peritoneal by way of a 5 mm port in the left upper quadrant at Leal's point. This was performed under direct visualization with a optical viewing port. The peritoneum was insufflated, and the camera was reintroduced. The underlying viscera was carefully examined. There was no evidence of any type of traumatic injury. There were adhesions to the midline incision, but the left hemiabdomen was clear. Therefore, I anesthetized the skin and placed a 12 mm port in the midportion of the left abdomen, and another 5 mm port below this. These ports were placed under the direct vision of the laparoscope. Next, I turned my attention back to the midline. Using combination of blunt dissection, as well as LigaSure dissection, the midline was cleared of all adhesions. After all of this omental tissue was mobilized, it was clear that there are actually 3 hernias here. The largest was the more cephalad, and the one that the patient was most symptomatic. But there were 2 other small hernias within the incisional plane. External measurements were made, and I selected a 8 x 10 inch Ventralex hernia mesh in order to cover all of the fascial defects. The mesh was delivered by way of the 12 mm port under the direct vision of the camera according to the paediatric thoracic physician's instructions. It was oriented appropriate with the long axis in line with the midline incision. Echo system was then used to help deliver it up to the anterior abdominal wall. Careful examination was performed to ensure that there was adequate coverage of all the fascial defects, with good margins to pexy the mesh in place. Next, the 4 cardinal points were pexied in place with an absorbable tacker. The mesh was examined once again, and looked well oriented and seated. Next, tacker was used to secure the all the margins of the mesh up to the anterior abdominal wall. The echo delivery device was then removed, again according to the paediatric thoracic physician's instructions. The mesh was examined 1 last time, and appeared to have excellent coverage of the anterior abdominal wall. The 12 mm port was then closed with a #1 PDS suture using [id number] technique. The left upper quadrant 5 mm port was then removed with the vision of the laparoscope. There was no bleeding here. Finally, the remaining 5 mm port in the left lower quadrant was also removed. Subcutaneous sutures were used to close the skin defects, the patient was allowed to wake from anesthesia after removal of the Gonsalves catheter. He was transferred to the recovery unit for ongoing monitoring and resuscitation.
[2024-02-07] VITALS (8 sets, daily range): BP systolic 92–128; BP diastolic 51–83; PULSE 62–82; RESP 12–18; TEMP 36.2–36.4; O2SAT 93–98; BMI 43.5
[2024-02-07] MEDS: Celecoxib 200 MG CAP PO (07:14)
[2024-02-07] MEDS: Gabapentin 300 MG CAP 600 MG PO (07:14)
[2024-02-07] MEDS: Acetaminophen 500 MG TAB 1000 MG PO (07:14)
[2024-02-07] MEDS: Lactated Ringers 1,000 ML 80 ML IV (07:34)
--- NOTE | 2024-02-07 08:34 | W.ANESPRE ---
General Info Date of Service Date Performed: 02/07/24 Height: 6 ft 1 in Weight: 149.8 kg Body Mass Index (BMI): 43.5 Surgical Procedure: Operation Date: 02/07/24 08:40 Proposed Procedure Side Surgeon p Hernia Ventral Laparoscopic Rambo Yan MD Meds Allergies and Home Medications Allergies Allergy/AdvReac Type Severity Reaction Status Date / Time Sulfa (Sulfonamide AdvReac Severe Diarrhea Verified 02/07/24 07:05 Antibiotics) levofloxacin [From Levaquin] AdvReac Intermediate Diarrhea Verified 02/07/24 07:05 Home Medication Medication Instructions Recorded buspirone 7.5 mg tablet 7.5 mg PO BID PRN anxiety #180 02/17/20 tab-caps albuterol sulfate 90 mcg/actuation 1 - 2 puff inhalation Q4H PRN 09/28/20 aerosol inhaler shortness of breath or wheezing #1 unit sertraline 50 mg tablet 50 mg PO DAILY #90 tab-caps 11/20/23 atorvastatin 40 mg tablet (Lipitor) 40 mg PO HS #90 tab-caps 11/27/23 sildenafil (pulm.hypertension) 20 20 mg PO DAILY PRN sexual activity 11/27/23 mg tablet #14 tab-caps Current Visit Medications: Current Medications Generic Name Dose Route Start Last Admin Trade Name Freq PRN Reason Stop Dose Admin Acetaminophen 1,000 mg 02/07/24 06:00 02/07/24 07:14 Acetaminophen 500 Mg Tab PO 02/07/24 16:00 1,000 mg PREOP FARHANA Administration Celecoxib 200 mg 02/07/24 06:00 02/07/24 07:14 Celecoxib 200 Mg Cap PO 02/07/24 16:00 200 mg PREOP FARHANA Administration Gabapentin 600 mg 02/07/24 06:00 02/07/24 07:14 Gabapentin 300 Mg Cap PO 02/07/24 16:00 600 mg PREOP FARHANA Administration Hydromorphone HCl 0.2 mg 02/06/24 19:22 Hydromorphone 2 Mg/Ml Syr IVP 03/07/24 19:21 Q1H PRN PRN Ringer's Solution 1,000 mls @ 80 mls/hr 02/07/24 06:00 02/07/24 07:34 IV 03/07/24 23:59 80 mls/hr INFUSION FARHANA Administration Cefazolin Sodium 3,000 mg/ 100 mls @ 200 mls/hr 02/07/24 06:00 Sodium Chloride IVPB 02/07/24 16:00 PREOP FARHANA IV Miscellaneous Supplies 1 each 02/07/24 06:00 Iv Access IV 03/07/24 23:59 DIRECTED FARHANA Sodium Chloride 0 ml 02/07/24 06:00 Normal Saline Flush 10 Ml Syr IV 03/07/24 23:59 PRN PRN Sodium Chloride 0 ml 02/07/24 06:00 Normal Saline 10 Ml Vial IJ 03/07/24 23:59 DIRECTED PRN Sterile Water 0 ml 02/07/24 06:00 Water,Injection,Sterile 10 Ml Vial IJ 03/07/24 23:59 DIRECTED PRN Tramadol HCl 100 mg 02/06/24 19:22 Tramadol 50 Mg Tab PO 03/07/24 19:21 Q6H PRN PRN Pain PFSH Active Problems Active Problems: Problem Status Onset Code Pain in left foot M79.672 Obesity, Class III, BMI 40-49.9 (morbid obesity) E66.01 Pre-diabetes R73.03 Ingrown toenail L60.0 Onychomycosis B35.1 Incisional hernia K43.2 Pain, foot M79.673 Nail dystrophy L60.3 Suspected sleep apnea R29.818 Obesity E66.9 IFG (impaired fasting glucose) R73.01 Anxiety with depression F41.8 Tobacco use disorder F17.200 Metabolic syndrome E88.81 Insomnia disorder G47.00 Hyperlipidemia E78.5 Erectile dysfunction 03/04/17 N52.9 Medical History Medical History Perforated diverticulum Diverticulitis Surgical History Surgical History H/O arthroscopic knee surgery S/P colectomy open sigmoid colectomy for diverticular Dx 08/31/22 S/P exploratory laparotomy Hx of colonoscopy excisional bx rgt upper arm (12/28/05) lipoma Tobacco Smoking/Tobacco Use Status: Current every day Tobacco Type: cigarettes Smoking packs per day: 1.00 Smoking cigarettes per day: 20.0 Years smoked: 30 Smoking pack-years: 30.00 Passive smoking exposure: No Alcohol Alcohol Intake: current Alcohol intake frequency: holidays/special occasions only Alcohol type: beer and hard liquor Substance Use Substance use: Never Substance use type: does not use Vital Signs and Lab Results Vital Signs Most Recent Vital Signs in EMR: Most Recent Vital Signs Temp Pulse Resp BP Pulse Ox 36.2 C L 82 16 128/83 98 02/07/24 06:57 02/07/24 06:57 02/07/24 06:57 02/07/24 06:57 02/07/24 06:57 Lab Results Blood Type / Crossmatch: No Data to Display Complete Blood Count: No Data to Display Complete Metabolic Panel: No Data to Display Liver Function Panel: No Data to Display Coagulation Panel: No Data to Display Cardiac Panel: No Data to Display Arterial Blood Gas: No Data to Display Venous Blood Gas: No Data to Display Pancreas Panel: No Data to Display Thyroid Panel: No Data to Display Infectious Disease: No Data to Display Blood Cultures: No Data to Display Toxicology Panel: No Data to Display Anesthesia Assessment and Plan Anesthesia History Personal History: No History of Anesthesia Complications Family History: No Family History of Anesthesia Complications Exercise Tolerance Exercise Tolerance: Metabolic Equivalents>4 Pertinent Negatives Pertinent Negatives: No Symptoms of GERD, No Major Cardiovascular Symptoms or Complaints, No Major Pulmonary Symptoms or Complaints and No History of CVA/TIA Cardiac & Pulmonary Exam Cardiac Exam: Normal S1/S2 Heart Sounds Pulmonary Exam: Clear Bilateral Breath Sounds (dim bilaterally ) Implantable Cardiac Device Does patient have a Pacemaker or an ICD?: No Airway Exam Known Difficult Airway: No Mallampati Class: 3 Mouth Opening: Normal (> 3cm) Thyromental Distance: Greater than 3 cm Neck Range of Motion: Full ROM Neck Circumference: Thick Teeth Condition: Normal Dentition ASA Classification ASA Score: ASA 3 Emergency Case?: No NPO Status NPO Status: NPO Clears >2 hours, Solids >8 hours Anesthesia Plan Resuscitation Status: Full Code Anesthesia Technique: General Anesthesia Airway Planned: Endotracheal Tube Monitors Used: Standard Monitors
[2024-02-07] MEDS: ceFAZolin 3,000 MG in Normal Saline 100 ML 200 MG IVPB (09:01)
[2024-02-07] MEDS: Bupivacaine 0.25% Pres-Free 30 ML VIAL (09:50)
[2024-02-07] MEDS: Bupivacaine LIPOSOME/PF 133 MG/10 ML VIAL IJ (09:50)
--- NOTE | 2024-02-07 15:01 | W.ANESPOSTOP ---
Postoperative Evaluation Date, Time and Location Date Performed: 02/07/24 Time Performed: 12:59 Patient Location: Day Surgery Unit Vital Signs Most Recent Imported Vital Signs: Most Recent Vital Signs Temp Pulse Resp BP Pulse Ox 36.2 C L 70 18 106/63 96 02/07/24 13:00 02/07/24 13:00 02/07/24 13:00 02/07/24 13:00 02/07/24 13:00 Pain Score Most Recent Pain Score: Most Recent Pain Score Pain Level 0 02/07/24 13:00 Assessment Mental Status: Awake (Alert & Oriented to Patient Baseline) Airway and Respiratory Function: Patent airway with normal (patient baseline) respiratory exam Cardiovascular Function: Hemodynamically Stable Hydration Status: Adequately Hydrated Nausea & Vomiting: No Nausea or Vomiting Pain: Pt. Denies Any Pain Peripheral Nerve Block: Patient did not receive a nerve block
== END 2024-02-07 13:20 | disposition home or self-care (01) ==
LOC: SUR 06:57
PROVIDERS: PCP Nurse Practitioner; Visit Provider Surgery
PROC: 0WQF4ZZ Repair Abdominal Wall, Percutaneous Endoscopic Approach (ICD-10-PCS; CPT 49593; principal; 2024-02-07 08:30)
DX: K43.2 Incisional hernia without obstruction or gangrene (principal); E66.9 Obesity, unspecified; R73.03 Prediabetes; E78.5 Hyperlipidemia, unspecified; F17.210 Nicotine dependence, cigarettes, uncomplicated
CPT/HCPCS: 49593; C1781; C9290; J0665; J0690; J1100; J1885; J2001; J2371; J2405; J2704

== ENCOUNTER 2024-06-09 08:11 | Outpatient (REF) | payer BC, SELFPAY ==
--- NOTE | 2024-06-09 13:30 | SKI_PTH ---
PATIENT: Kingston Alex III LOC: [facility] U#:[id number] AGE/SX: 59/M ROOM: RE06/09/[address]: Rambo Yan MD : 1965 BED: DIS: 06/09/2024 SPEC #: [id number] RECD: 06/09/24 17:53 STATUS: ESTHER RERuth #: [id number] CARLOS: 06/09/24 13:[address]: Rambo Yan DEPT: Surgical Specimen RECD BY: Maria Alejandra Mercado ENTERED: 06/09/24 17:53 SP TYPE: HARJEET JONES DR: Yasmine Bond APRN Tissues: 1 - SKIN BIOPSY(SHAVE/PUNCH) Procedures: SKIN LEVEL 4 Comments: [id number]
== END 2024-06-09 08:12 | disposition home or self-care (01) ==
LOC: LBN 08:11
PROVIDERS: PCP Nurse Practitioner; Visit Provider Surgery
DX: L82.1 Other seborrheic keratosis (principal); L73.9 Follicular disorder, unspecified
CPT/HCPCS: 88305

== ENCOUNTER 2024-12-10 03:53 | Outpatient (CLI) | payer BC, SELFPAY ==
[2024-12-10 08:03] LABS: HCT 44.9 % (40.0-50.0); HGB 15.2 g/dL (13.5-17.5); MCH 31.5 pg (27.0-33.0); MCHC 33.9 % (32.0-36.0); MCV 93 fL (80-95); MPV 8.8 fL (8.0-11.0); Platelet Count 301 10^3/uL (130-400); RBC 4.82 10^6/uL (4.36-5.78); RDW 13.9 % (11.8-14.1); WBC 8.78 10^3/uL (4.4-10.8)
[2024-12-10 08:17] LABS: ALT 31 U/L (16-63); AST 16 U/L (15-37); Albumin 3.7 g/dL (3.4-5.0); Alkaline Phosphatase 127 U/L (46-116); Anion Gap 7.8 mmol/L (3-11); BUN 10 mg/dL (7-18); Bilirubin, Total 0.45 mg/dL (0.2-1.0); CO2 28.2 mmol/L (21.0-32.0); CREATININE 0.9 mg/dL (0.70-1.30); Calcium 9.1 mg/dL (8.5-10.1); Calculated LDL 104 mg/dL (<100); Chloride 104 mmol/L (98-107); Cholesterol 175 mg/dL (<200); Estimated GFR 97.78 (mL/min/1.73m2); Glucose 113 mg/dL (74-106); HDL Cholesterol 41 mg/dL (40-60); Potassium 3.9 mmol/L (3.5-5.1); Sodium 140 mmol/L (136-145); Total Protein 7.5 g/dL (6.4-8.2); Triglyceride 151 mg/dL (<150)
[2024-12-10 08:23] LABS: Hemoglobin A1C 5.9 % (<5.7)
== END 2024-12-10 03:54 | disposition home or self-care (01) ==
PROVIDERS: PCP Nurse Practitioner; Referring Provider Nurse Practitioner; Visit Provider Nurse Practitioner
DX: E66.01 Morbid (severe) obesity due to excess calories (principal); E78.5 Hyperlipidemia, unspecified; R73.03 Prediabetes
CPT/HCPCS: 36415; 80053; 80061; 85027; 83036